=== PATIENT | female | born 1940 | race Caucasian/White ===

== ENCOUNTER → 2018-01-04 16:42 | Outpatient (CLI) | payer MEDICARE, OTHER, SELFPAY ==
--- NOTE | 2018-01-04 16:45 | DI.RAD.S_ITS ---
PROCEDURE: XR FOOT RT MIN 3V INDICATIONS: PAIN IN RIGHT FOOT TECHNIQUE: 3 views of the foot were acquired. COMPARISON: None. FINDINGS: Bones: No fractures or dislocations. No suspicious bony lesions. There is advanced joint degeneration at the first metatarsal phalangeal joint, [id number] appearance with sclerosis and marginal spurring. No cortical erosions seen. The inter-phalangeal joint of the great toe appears maintained. Soft tissues: No tibiotalar joint effusion. Achilles tendon appears normal. IMPRESSION: 1. Advanced osteoarthritis first metatarsal phalangeal joint Dictated by: Kvng Loera M.D. on 01/05/2018 at 8:30 Approved by: Kvng Loera M.D. on 01/05/2018 at 8:32
== END ==
PROVIDERS: PCP Internal Medicine; Visit Provider Student in an Organized Health Care Education/Training Program
DX: M19.071 Primary osteoarthritis, right ankle and foot (principal); M79.671 Pain in right foot
CPT/HCPCS: 73630

== ENCOUNTER 2019-01-20 08:28 | Emergency (ER) | payer MEDICARE, OTHER, SELFPAY ==
[2019-01-20 08:37] VITALS: BP 179/98; PULSE 69; RESP 16; TEMP 36.3; O2SAT 95; BMI 29.2
--- NOTE | 2019-01-20 08:40 | DI.RAD.S_ITS ---
PROCEDURE: XR CHEST 1V INDICATIONS: chest pain TECHNIQUE: One view of the chest was acquired. COMPARISON: [facility], , CHEST 2 VIEW, 02/13/2014, 10:40. FINDINGS: Surgical changes and devices: Clips are seen within the bilateral axillary regions. Lungs and pleura: Lungs are clear. No pleural effusions or pneumothorax. Mediastinum: Mediastinal contours appear normal. Heart size is normal. Bones and chest wall: No suspicious bony lesions. Overlying soft tissues appear unremarkable. IMPRESSION: Negative chest. No acute cardiopulmonary process is suspected. Dictated by: Mitchell Washington M.D. on 01/20/2019 at 8:01 Approved by: Mitchell Washington M.D. on 01/20/2019 at 8:02
[2019-01-20 09:13] LABS: PTT Partial Thromboplastin Tim 32 SECONDS (26.4-36.2)
[2019-01-20 09:14] LABS: Alanine Aminotransferase 21 IU/L (9-52); Albumin 4.3 g/dL (3.5-5.0); Albumin Globulin Ratio 1.4 (1.0-2.8); Alkaline Phosphatase 71 U/L (38-126); Aspartate Aminotransferase 23 IU/L (14-36); Bilirubin Total 0.7 mg/dL (0.2-1.3); Blood Urea Nitrogen 13 mg/dL (7-17); Calcium 8.7 mg/dL (8.4-10.2); Carbon Dioxide 27 mmol/L (22-32); Chloride 107 mmol/L (98-107); Creatine Kinase 79 U/L (30-135); Estimated Glomerular Filt Rate > 60.0 mL/min (>60); Glucose 135 mg/dL (80-110); HEMOLYSIS < 15 (0-50); Lipase 60 U/L (23-300); Potassium 3.6 mmol/L (3.4-5.1); Sodium 142 mmol/L (137-145); Total Protein 7.3 g/dL (6.3-8.2)
[2019-01-20 09:17] LABS: Add Manual Diff / Slide Review NO; Basophils Absolute Auto 100 /uL (0-100); Basophils Percent Auto 1.6 % (0-2); Eosinophils Absolute Auto 100 /uL (0-450); Eosinophils Percent Auto 1.5 % (2-4); Hemoglobin 13.6 g/dL (12.0-16.0); Lymphocytes Absolute Auto 1000 /uL (1100-4500); Lymphocytes Percent Auto 26.8 % (25-40); Mean Corpuscular HGB Conc 34.1 % (30-36); Mean Corpuscular Hemoglobin 32.6 PG (26-34); Mean Corpuscular Volume 95.7 fL (80-100); Monocytes Absolute Auto 200 /uL (0-900); Monocytes Percent Auto 5.1 % (3-14); Neutrophils Absolute Auto 2400 /uL (1500-7000); Platelet Count 204 X10^3/uL (150-400); Red Blood Cell Count 4.18 X10^6/uL (4.0-5.2); White Blood Cell Count 3.7 X10^3/uL (4.5-11.0)
[2019-01-20 09:26] LABS: Troponin I < 0.012 ng/mL (0.01-0.034)
[2019-01-20 09:43] VITALS: BP 136/75; PULSE 64; RESP 20; O2SAT 97
[2019-01-20 10:48] VITALS: BP 126/82; PULSE 78; O2SAT 97
--- NOTE | 2019-01-20 11:38 | ED.DIZZY ---
HPI - Dizziness General Chief Complaint: Dizziness Stated Complaint: disoriented,left arm tingly Time Seen by Provider: 01/20/19 09:42 Source: patient Mode of arrival: ambulatory Limitations: no limitations History of Present Illness HPI Narrative: This is a 78-year-old female comes to the emergency department with complaint feeling sort of disoriented in on stable at home, she also states she had an ache in her left arm. Patient states she has had discomfort in her left wrist on and off for about a week. She thinks she has some carpal tunnel. Today she states it was actually kind of radiating up into her shoulder. Patient states that it is still present in her wrist at this time but has otherwise resolved. She states that when she got up at about 6:00 a.m. she just felt sort of disoriented and off. She felt a little unstable. She states that she felt like her vision is maybe little cough that she could quite focus. She states no issues with speech, no issues with movement, new weakness or numbness in her extremities. Patient denies any chest pain or shortness of breath, she denies any diaphoresis. She states she vomited once this morning and was left over coffee from last night. She denies any issues with bowel movements, she has chronic urinary frequency. The patient has a history significant for dyslipidemia and was started on Crestor on the 27 of December. She has not noticed any significant side effects. 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 Is she denies tobacco, she has 2-3 alcoholic drinks nightly. No illicit. She has not had a stress test recently but had a MUGA scan about 15 years ago when she was taking Adriamycin. Patient states she has not had anything to eat or drink today. She states she also bicycle to all around [place] and is on Monday. Related Data Home Medications Medication Instructions Recorded Confirmed No Known Home Medications 11/28/17 11/28/17 Allergies Allergy/AdvReac Type Severity Reaction Status Date / Time levofloxacin [From LEVAQUIN] Allergy Severe MADE ME Verified 01/20/19 08:37 SCREWY doxorubicin [From Adriamycin] Allergy Intermediate Verified 01/20/19 08:37 Review of Systems Review of Systems ROS Unobtainable: All systems reviewed & are unremarkable except as noted in HPI and below Constitutional Denies chills, Denies fever(s), Denies lethargy and Denies weakness Eyes Reports other (couldn't focus, resolved.) ENT Ears, Nose, Mouth, and Throat: Denies other (facial droop) Cardiovascular Denies chest pain, Denies diaphoresis, Denies syncope, Denies rapid heart rate, Denies edema, Denies irregular heart rhythm, Denies lightheadedness, Reports radiating jaw, neck or arm pain (left arm discomfort. ), Denies palpitations, Denies dyspnea, Denies dyspnea on exertion and Denies orthopnea Respiratory Denies chest congestion, Denies cough, Denies dyspnea, Denies dyspnea on exertion and Denies wheezing Gastrointestinal Gastrointestinal: Denies abdominal pain, Denies change in bowel habits, Denies diarrhea, Denies nausea and Reports vomiting (x1) Genitourinary Denies hematuria, Reports urinary frequency, Denies dysuria, Denies flank pain, Denies urinary incontinence and Denies urinary urgency Musculoskeletal Reports as per HPI, Denies arthralgias, Denies muscle weakness, Denies numbness, Denies stiffness and Denies tingling Integumentary/Breasts Denies erythema and Denies rash Neurologic Denies syncope, Denies numbness, Denies tingling and Denies weakness Endocrine Denies palpitations Allergic/Immunologic Denies wheezing PFSH Medical History (Updated 01/20/19 @ 12:06 by Carol Esquivel DO) Dyslipidemia (Chronic) Inflammatory breast cancer (Resolved) Surgical History (Updated 01/20/19 @ 12:06 by Carol Esquivel DO) H/O bilateral mastectomy (Chronic) History of mastectomy (Inactive) Social History (Updated 01/20/19 @ 12:06 by Carol Esquivel DO) Smoking Status: Never smoker alcohol intake: current substance use type: does not use Social History (Updated 01/20/19 @ 12:06 by Carol Esquivel DO) Smoking Status: Never smoker alcohol intake: current substance use type: does not use Exam Narrative Exam Narrative: GENERAL: Alert and oriented x three, well-nourished, well-appearing female in no acute distress. HEENT: Head normocephalic, atraumatic, EOMI, pupils reactive, face symmetric, moist mucous membranes, no facial droop normal speech. NECK: Supple, full range of motion CARDIOVASCULAR: Regular rate and rhythm without murmurs, rubs or gallops. RESPIRATORY: Breath sounds equal bilaterally, no wheezes rales or rhonchi. ABDOMEN: Soft, nontender. Normoactive bowel sounds all 4 quadrants. No guarding or rebound, rigidity, no mass : No CVA tenderness EXTREMITIES: Normal range of motion, no clubbing or edema. Neurovascularly intact NEUROLOGICAL: Cranial nerves II through XII grossly intact. Moving all extremities. [id number]-[id number], heel-armas are normal. 5/5 muscle strength in upper and lower extremities. Certified Fire Investigator is equal bilaterally, normal push and pull. Normal gait. Normal speech. SKIN: Warm, dry, no petechiae, no rashes or lesions. Initial Vital Signs Initial Vital Signs: Vital Signs Temperature 97.4 F L 01/20/19 08:37 Pulse Rate 69 01/20/19 08:37 Respiratory Rate 16 01/20/19 08:37 Blood Pressure 179/98 H 01/20/19 08:37 Pulse Oximetry 95 01/20/19 08:37 Scores HEART Score Heart Score history: Moderately Suspicious Heart Score EKG: Normal Heart Score Age: > or = 65 years old Heart Score risk factors: 1-2 risk factors Heart Score troponin: < or = to normal limit Heart Score Total: 4 NIH Stroke Scale Level of Conciousness: Alert, keenly responsive Ask month/age: Answers both questions correctly. Open/close eyes, close hand: Performs both tasks correctly Best gaze horizontal: Normal Visual nunez: No visual loss Facial palsy: Normal symetrical movement Left arm drift: No drift for full 10 sec Right arm drift: No drift for full 10 sec Left leg drift: No drift for full 10 sec Right leg drift: No drift for full 10 sec Limb ataxia: Absent Sensory on face/arms/legs: Normal, no sensory loss Best language: No aphasia, normal Dysarthria: Normal Extinction or inattention: No abnormality Total NIH Stroke scale score: 0 Course Orders Ordered: ED Orders 01/20/19 08:40 XR chest 1V Stat EKG-12 Lead Stat 01/20/19 08:50 Complete Blood Count AUTO DIFF Stat Comprehensive Metabolic Panel Stat Lipase Stat Partial Thromboplastin Time Stat Prothrombin Time INR Stat Troponin & CK Cardiac Panel Stat Vital Signs - 8 hr 01/20/19 12:24 Pulse Rate 66 Respiratory Rate 18 Blood Pressure 140/80 Pulse Oximetry 99 MDM - Dizziness Lab Data Attestation: I reviewed the patient's lab results. Result diagrams: 01/20/19 08:50 01/20/19 08:50 Lab Results 01/20/19 01/20/19 01/20/19 Range/Units 08:50 08:50 08:50 WBC 3.7 L (4.5-11.0) X10^3/uL RBC 4.18 (4.0-5.2) X10^6/uL Hgb 13.6 (12.0-16.0) g/dL Hct 40.0 (36-46) % MCV 95.7 (80-100) fL MCH 32.6 (26-34) PG MCHC 34.1 (30-36) % RDW 13.0 (11.6-14.8) % Plt Count 204 (150-400) X10^3/uL Neut % (Auto) 65.0 (50-75) % Lymph % (Auto) 26.8 (25-40) % [place] % (Auto) 5.1 (3-14) % Eos % (Auto) 1.5 L (2-4) % Baso % (Auto) 1.6 (0-2) % Neut # (Auto) 2400 (2298-0884) /uL Lymph # (Auto) 1000 L (2134-0973) /uL [place] # (Auto) 200 (0-900) /uL Eos # (Auto) 100 (0-450) /uL Baso # (Auto) 100 (0-100) /uL PT 11.0 (10.1-12.7) SECONDS INR 1.0 (0.9-1.3) APTT 32 (26.4-36.2) SECONDS Sodium 142 (137-145) mmol/L Potassium 3.6 (3.4-5.1) mmol/L Chloride 107 (98-107) mmol/L Carbon Dioxide 27 (22-32) mmol/L BUN 13 (7-17) mg/dL Creatinine 0.50 L (0.52-1.04) mg/dL Estimated GFR > 60.0 (>60) mL/min BUN/Creatinine Ratio 26.0 H (6-22) Glucose 135 H (80-110) mg/dL Calcium 8.7 (8.4-10.2) mg/dL Total Bilirubin 0.7 (0.2-1.3) mg/dL AST 23 (14-36) IU/L ALT 21 (9-52) IU/L Alkaline Phosphatase 71 (38-126) U/L Total Creatine Kinase 79 (30-135) U/L CK-MB (CK-2) TNP CK-MB (CK-2) Rel Index TNP Troponin I < 0.012 (0.01-0.034) ng/mL Total Protein 7.3 (6.3-8.2) g/dL Albumin 4.3 (3.5-5.0) g/dL Globulin 3.0 (1.7-4.1) g/dL Albumin/Globulin Ratio 1.4 (1.0-2.8) Lipase 60 (23-300) U/L Point of Care Testing Glucose POC 146 Urine Dip Bedside Urine Glucose Negative Bedside Urine Bilirubin - Negative Bedside Urine Ketone - Negative Urine Specific [place] 1.020 Bedside Urine Occult Blood - Negative Bedside Urine pH 7.5 Bedside Urine Protein - Negative Bedside Urine Urobilinogen - Negative Bedside Urine Nitrite - Negative Bedside Urine Leukocytes - Negative Esterase Imaging Data Chest x-ray: Radiologist's impression: [address] [address] XRay Report Signed Patient: Tammi Yanez LMR#: [id number] : [id number]:[id number] Age/Sex: 78 / FDate of Service: 01/20/19 Loc: ED Accession Number: [id number] Procedure: XR chest 1V Ordering Provider: Carol Esquivel D.O. PROCEDURE: XR CHEST 1V INDICATIONS: chest pain TECHNIQUE: One view of the chest was acquired. COMPARISON: [facility], , CHEST 2 VIEW, 02/13/2014, 10:40. FINDINGS: Surgical changes and devices: Clips are seen within the bilateral axillary regions. Lungs and pleura: Lungs are clear. No pleural effusions or pneumothorax. Mediastinum: Mediastinal contours appear normal. Heart size is normal. Bones and chest wall: No suspicious bony lesions. Overlying soft tissues appear unremarkable. IMPRESSION: Negative chest. No acute cardiopulmonary process is suspected. Dictated by: Mitchell Washington M.D. on 01/20/2019 at 8:01 Approved by: Mitchell Washington M.D. on 01/20/2019 at 8:02 ECG Data Attestation: I personally reviewed and interpreted this ECG as follows: Interpretation: Sinus bradycardia rate of 56 P are 129 QRS of 90 and QTC of 454, no ST elevation or depression appreciated. Patient has prior from 02/12/2014 which appears similar. Please note today's EKG was initially filed under the name of cherrie. MDM Narrative Medical decision making narrative: Patient is requesting to return home. Discussed her lab work is normal except for a white count of 3.7 which she states is a normal range of her. She did come in hypertensive. Her symptoms have resolved although she has some discomfort in her wrist. Unclear if this could be carpal tunnel although with the complaint of radiation from the shoulder all the way to the wrist this makes it less likely. Patient also with her description of feeling little disoriented in off may be suspicious for either TIA and or atypical chest pain. Discussed with patient she does have some risk factors at minimum I would recommend a repeat troponin/EKG as well as a head CT. Patient does not wish to stay for these we discussed the risks, she is aware that there is potential for missing a stroke or TIA as well as cardiac cause such as a heart attack. I did recommend that she follow up with her physician tomorrow which she is willing to do. We also discussed that she can return at any time if she has recurrence of symptoms or would just like to return for recheck. Discharge Plan Departure Patient Disposition: Home Clinical Impression: Dizziness, Arm pain, left Discharge Date/Time: 01/20/19 12:24 Interventions: ED Discharge Assessment Last Done: 01/20/19 12:24 Instructions: DI for Atypical Chest Pain Activity Restrictions/Additional Instructions: Follow-up with your primary care physician tomorrow call for an appointment in the morning. Your symptoms are concerning for possible atypical chest pain and/or TIA. I would recommend repeat troponin/heart enzyme as well as head CT today. Is elected to return home I would discussed with your physician about potentially getting stress testing or at minimum recheck. Return to the emergency department for fevers greater than 100.4 F, new chest pain or pressure, shortness of breath, lightheadedness, passing out, difficulty with speech, movement, sudden severe headaches, new vision changes, new weakness/numbness or other new or concerning symptoms. Prescriptions: No Action No Known Home Medications RF: 0 Referrals: Gonzalo Rudolph MD [Primary Care Provider] -
[2019-01-20 12:24] VITALS: BP 140/80; PULSE 66; RESP 18; O2SAT 99
== END 2019-01-20 12:24 | disposition home or self-care (01) ==
PROVIDERS: Emergency Provider Emergency Medicine; PCP Internal Medicine
DX: R42 Dizziness and giddiness (principal); M79.602 Pain in left arm; R20.2 Paresthesia of skin; M25.512 Pain in left shoulder
CPT/HCPCS: 36591; 71045; 80053; 81003; 82550; 82962; 83690; 84484; 85025; 85610; 85730; 93005; 99283; 99285

== ENCOUNTER → 2019-06-06 12:13 | Outpatient (CLI) | payer MEDICARE, OTHER, SELFPAY ==
--- NOTE | 2019-06-06 | DI.RAD.S_ITS ---
PROCEDURE: XR FOOT LT MIN 3V INDICATIONS: LT FOOT PAIN TECHNIQUE: 3 views of the foot were acquired. COMPARISON: , [facility], XR FOOT RT MIN 3V, 01/04/2018, 16:26. FINDINGS: Bones: No fractures or dislocations. No suspicious bony lesions. Plantar calcaneal spur. Diffuse interphalangeal and first MTP degeneration. Marginal lucency projects at the fifth metatarsal head Soft tissues: No tibiotalar joint effusion. Achilles tendon appears normal. IMPRESSION: Diffuse osteoarthritis Age indeterminate cyst versus erosion at the fifth metatarsal head Plantar calcaneal spur Dictated by: Richard El M.D. on 06/06/2019 at 13:44 Approved by: Richard El M.D. on 06/06/2019 at 13:50
== END ==
PROVIDERS: PCP Internal Medicine; Visit Provider Internal Medicine
DX: M79.672 Pain in left foot (principal); M19.072 Primary osteoarthritis, left ankle and foot; M77.32 Calcaneal spur, left foot
CPT/HCPCS: 73630

== ENCOUNTER → 2019-08-01 10:19 | Outpatient (CLI) | payer MEDICARE, OTHER, SELFPAY | PROVIDERS: PCP Internal Medicine; Visit Provider Internal Medicine | DX: M81.0 Age-related osteoporosis without current pathological fracture (principal); Z78.0 Asymptomatic menopausal state; Z85.3 Personal history of malignant neoplasm of breast | CPT/HCPCS: 77080 ==

== ENCOUNTER → 2019-08-28 09:25 | Outpatient (CLI) | payer MEDICARE, OTHER, SELFPAY ==
[2019-08-28 11:16] LABS: Blood Urea Nitrogen 15 mg/dL (7-17); Estimated Glomerular Filt Rate > 60.0 mL/min (>60)
== END ==
PROVIDERS: PCP Internal Medicine; Referring Provider Internal Medicine; Visit Provider Internal Medicine
DX: M81.0 Age-related osteoporosis without current pathological fracture (principal)
CPT/HCPCS: 36415; 82565; 84520

== ENCOUNTER 2019-12-03 09:45 | Outpatient (RCR) | payer MEDICARE, OTHER, SELFPAY ==
--- NOTE | 2019-08-23 15:02 | PT.OIE ---
Current Diagnoses Low back pain (08/23/19) Past Medical History (Last Updated 01/20/19 @ 12:06 by Carol Esquivel DO) Dyslipidemia (Chronic) Inflammatory breast cancer (Resolved) Past Surgical History (Last Updated 01/20/19 @ 12:06 by Carol Esquivel DO) H/O bilateral mastectomy (Chronic) History of mastectomy (Inactive) Visit Care Team Role Provider Type Gonzalo Rudolph MD Attending Provider Physician Primary Care Provider Referring Provider Specialty: Internal Medicine Address: [address] [place] [address], [facility] Email: [email or web address] Physical Therapy Initial Evaluation PT-OP-A Visit Information Start: 08/23/19 07:23 Freq: Status: Active Protocol: Document 08/23/19 09:50 MB (Rec: 08/23/19 10:31 MB [id number]) Out-Patient Physical Therapy Visit Information Visit Information Visit Type Initial Evaluation Visit Note Medicare, unlimited Visit Start Time 09:50 Visit Stop Time 10:20 Total Visit Minutes 30 Visit Number 1 Evaluation Information Evaluation Date 08/23/19 PT-OP-B Current Condition Start: 08/23/19 07:23 Freq: Status: Active Protocol: Document 08/23/19 09:50 MB (Rec: 08/23/19 10:31 MB [id number]) Current Condition History of Current Condition Onset Date Greater than 10 years History of Current Condition Pt reports that she has just been diagnosed with osteoporosis and osteopenia. 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 Her doctor wants her to have an infusion and she is thinking about Fosamax. Pt states that her back pain is getting better. She is able to go cross country skiing with her sons and just got back from [place]. PMH includes breast CA and B mastectomy. She has a history of dizziness. Pt reports pain up to 4/10 in her lower back that goes across. She gets tired easily. She has pain at night and has trouble getting to sleep. She sleeps on her stomach or on her side. She does not use a pillow between her knees when she sleeps on her side. She just got a new bed. It is a temperpedic mattress and firm but not too hard. Pt denies sensory changes in her legs and leg pain. She does report right great toe pain from arthritis and that she is seeing a director public service. She would like to get some PT for her foot as well and will call doctor to added to current PT plan. Prior Treatments and Tests PT in the past for her back and it went well. She also had PT s/p B mastectomy Treatment Goals Patient/Caregiver Goals To get some exercises. To get PT for her feet as well. PT-OP-C Subjective Start: 08/23/19 07:23 Freq: Status: Active Protocol: Document 08/23/19 09:50 MB (Rec: 08/23/19 14:58 MB [id number]) OP-PT Subjective Patient Comments Patient Comments See history of current condition and goal comments Patient Questionnaires Oswestry Low Back Index Oswestry Impairment 1 to 19% Impaired (Score 1-19) PT-OP-J Posture/Palpation/Skin Start: 08/23/19 07:23 Freq: Status: Active Protocol: Document 08/23/19 09:50 MB (Rec: 08/23/19 14:58 MB [id number]) Posture Evaluation Comments Posture Comments Standing: mild Dowager's hump, decreased thoracic kyphosis, increased lumbar lordosis, anterior tilt pelvis, right convexity upper thoracic spine , right scapula protracted and elevated compared to the left , T4 spinous process protruded , left iliac crest slightly higher than the right and increased knee valgus greater on the right. 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 PT-OP-K Range of Motion Start: 08/23/19 07:23 Freq: Status: Active Protocol: Document 08/23/19 09:50 MB (Rec: 08/23/19 15:01 MB [id number]) Lumbar Spine Range of Motion Lumbar Spine Active Testing Position Standing Comments Fingers 3 from floor with forward flexion Little thoracic and lumbar movement with side bend--pt drops shoulders B Little lumbar extension with standing extension--pt extends head back PT-OP-M Strength Start: 08/23/19 07:23 Freq: Status: Active Protocol: Document 08/23/19 09:50 MB (Rec: 08/23/19 15:00 MB [id number]) Hip Strength Hip Manual Muscle Testing Left Flexion (L2) 5 Normal Abduction 4 Good Right Flexion (L2) 4 Good Abduction 3+ Fair+ Knee Strength Knee Manual Muscle Testing Left Flexion (S2) 4 Good Extension (L3) 4 Good Right Flexion (S2) 4 Good Extension (L3) 4 Good Ankle/Foot Strength Ankle and Foot Manual Muscle Testing Left Dorsiflexion (L4) 5 Normal Inversion 5 Normal Eversion (S1) 5 Normal Comments Great toe extension 4/5 Right Dorsiflexion (L4) 5 Normal Inversion 4 Good Eversion (S1) 4 Good Comments Great toe extension 4/5 PT-OP-T Assessment and Plan Start: 08/23/19 07:23 Freq: Status: Active Protocol: Document 08/23/19 09:50 MB (Rec: 08/23/19 14:58 MB [id number]) Physical Therapy Assessment Rehab Potential Rehabilitation Potential Good Evaluation Complexity Number of Personal Factors/Comorbidities 1-2 Number of Body Systems Impaired 1-2 Clinical Presentation at Evaluation Stable Impairments Impairments Balance,Gait,Pain,Posture,ROM, Soft Tissue Mobility,Strength Goals 5 Lumber Salvager Goal (LTG) Pt will perform progressive HEP including alignment, core and LE strengthening, flexibility and balance exercises to improve balance and decrease pain by 10/22/2019. LTG Duration 8 weeks 4 Skilled Nursing Goal (LTG) Pt will report a 75% improvement in back pain by 10/22/2019. LTG Duration 8 weeks 3 Skilled Nursing Goal (LTG) Pt will perform WNLs on a standardized balance test to decrease fall risk by 10/22/2019 . LTG Duration 8 weeks 2 Lumber Salvager Goal (LTG) Pt will present with right ankle eversion and inversion to 5/5 to improve gait quality by 10/22/2019. LTG Duration 8 weeks 1 Lumber Salvager Goal (LTG) Pt will present with improved LE strength to 5/5 B hip abduction and flexion and knee flexion and extension to improve gait quality by 2019. LTG Duration 8 weeks Assessment Summary Assessment Pt is a 79 y/o female presenting with back and right greater than left foot pain in setting of spinal changes, OP and arthritis. She presents with LE weakness, gait favoring her right foot and with decreased step-length and foot clearance, occ scuffing the floor with left foot and decreased balance (unable to perform balance testing without shoes today d/t right toe discomfort with MMT). She will benefit from PT to improve flexibility, posture, core and LE strength and balance. Given gait changes and weakness, foot and ankle strengthening will be included with PT treatment. Physical Therapy Plan Frequency and Duration Frequency of Treatment 2x/Week Duration of Treatment 8 weeks Plan of Care Start Date 08/23/19 Plan of Care End Date 10/22/19 Therapeutic Interventions Therapeutic Interventions Aquatic Therapy,Balance Training,Canalithic Repositioning,Gait Training, Home Exercise Program,Joint Mobilizations,Manual Therapy, Neuromuscular Re-education, Patient/Caregiver Education, Self-Care/Home Management,Soft Tissue Mobilization,Taping, Therapeutic Activities, Therapeutic Exercises Modalities Cold Pack/Ice Massage,Electric Stimulation,Hot Packs, Ultrasound Other Therapeutic Interventions LLT Next Visit Focus/Plan Next Note Type Treatment Note Next Visit Plan Initiate exercises
--- NOTE | 2019-08-23 15:02 | PT.OPPOC ---
Physical, Occupational & Speech Therapy At [facility] Current Diagnoses Low back pain (08/23/19) Visit Care Team Role Provider Type Gonzalo Rudolph MD Attending Provider Physician Primary Care Provider Referring Provider Specialty: Internal Medicine Address: [address] [place] [address], [id number] Email: [email or web address] Of Care PT-OP-T Assessment and Plan Start: 08/23/19 07:23 Freq: Status: Active Protocol: Document 08/23/19 09:50 MB (Rec: 08/23/19 14:58 MB [id number]) Physical Therapy Assessment Rehab Potential Rehabilitation Potential Good Evaluation Complexity Number of Personal Factors/Comorbidities 1-2 Number of Body Systems Impaired 1-2 Clinical Presentation at Evaluation Stable Impairments Impairments Balance,Gait,Pain,Posture,ROM, Soft Tissue Mobility,Strength Goals 5 Knuckle Strap Sewer Goal (LTG) Pt will perform progressive HEP including alignment, core and LE strengthening, flexibility and balance exercises to improve balance and decrease pain by 10/22/2019. LTG Duration 8 weeks 4 Correction Goal (LTG) Pt will report a 75% improvement in back pain by 10/22/2019. LTG Duration 8 weeks 3 Correction Goal (LTG) Pt will perform WNLs on a standardized balance test to decrease fall risk by 10/22/2019 . LTG Duration 8 weeks 2 Correction Goal (LTG) Pt will present with right ankle eversion and inversion to 5/5 to improve gait quality by 10/22/2019. LTG Duration 8 weeks 1 Knuckle Strap Sewer Goal (LTG) Pt will present with improved LE strength to 5/5 B hip abduction and flexion and knee flexion and extension to improve gait quality by 2019. LTG Duration 8 weeks Assessment Summary Assessment Pt is a 79 y/o female presenting with back and right greater than left foot pain in setting of spinal changes, OP and arthritis. She presents with LE weakness, gait favoring her right foot and with decreased step-length and foot clearance, occ scuffing the floor with left foot and decreased balance (unable to perform balance testing without shoes today d/t right toe discomfort with MMT). She will benefit from PT to improve flexibility, posture, core and LE strength and balance. Given gait changes and weakness, foot and ankle strengthening will be included with PT treatment. Physical Therapy Plan Frequency and Duration Frequency of Treatment 2x/Week Duration of Treatment 8 weeks Plan of Care Start Date 08/23/19 Plan of Care End Date 10/22/19 Therapeutic Interventions Therapeutic Interventions Aquatic Therapy,Balance Training,Canalithic Repositioning,Gait Training, Home Exercise Program,Joint Mobilizations,Manual Therapy, Neuromuscular Re-education, Patient/Caregiver Education, Self-Care/Home Management,Soft Tissue Mobilization,Taping, Therapeutic Activities, Therapeutic Exercises Modalities Cold Pack/Ice Massage,Electric Stimulation,Hot Packs, Ultrasound Other Therapeutic Interventions LLT Next Visit Focus/Plan Next Note Type Treatment Note Next Visit Plan Initiate exercises Plan of Care Dates Plan of Care Start Date 08/23/19 Plan of Care End Date 10/22/19 Electronically Signed by: Olivia Casillas PT 08/23/19 [id number] Please Sign and Return: I have reviewed this Plan of Care and certify that the skilled therapy services above are required to meet the patient?s needs. Physician Signature Date Printed Name and Credentials Clinical Instructor Signature Printed Name and Credentials
--- NOTE | 2019-08-27 08:59 | PT.OTN ---
Current Diagnoses Low back pain (08/27/19) Physical Therapy Treatment Note PT-OP-A Visit Information Start: 08/23/19 07:23 Freq: Status: Active Protocol: Document 08/27/19 08:21 MB (Rec: 08/27/19 08:26 MB [id number]) Out-Patient Physical Therapy Visit Information Visit Information Visit Type Treatment Note Visit Note Medicare, unlimited Visit Start Time 08:21 Visit Stop Time 09:00 Total Visit Minutes 39 Visit Number 2 PT-OP-B Current Condition Start: 08/23/19 07:23 Freq: Status: Active Protocol: Document 08/23/19 09:50 MB (Rec: 08/23/19 10:31 MB [id number]) Current Condition History of Current Condition Onset Date Greater than 10 years History of Current Condition Pt reports that she has just been diagnosed with osteoporosis and osteopenia. 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 Her doctor wants her to have an infusion and she is thinking about Fosamax. Pt states that her back pain is getting better. She is able to go cross country skiing with her sons and just got back from [place]. PMH includes breast CA and B mastectomy. She has a history of dizziness. Pt reports pain up to 4/10 in her lower back that goes across. She gets tired easily. She has pain at night and has trouble getting to sleep. She sleeps on her stomach or on her side. She does not use a pillow between her knees when she sleeps on her side. She just got a new bed. It is a temperpedic mattress and firm but not too hard. Pt denies sensory changes in her legs and leg pain. She does report right great toe pain from arthritis and that she is seeing a senior android developer. She would like to get some PT for her foot as well and will call doctor to added to current PT plan. Prior Treatments and Tests PT in the past for her back and it went well. She also had PT s/p B mastectomy Treatment Goals Patient/Caregiver Goals To get some exercises. To get PT for her feet as well. PT-OP-C Subjective Start: 08/23/19 07:23 Freq: Status: Active Protocol: Document 08/27/19 08:21 MB (Rec: 08/27/19 08:29 MB [id number]) OP-PT Subjective Patient Comments Patient Comments Pt is going to talk with her doctor tomorrow about trying Fosamax before infusion. She woke up with left foot pain last night. She occ has right great toe pain. PT-OP-J Posture/Palpation/Skin Start: 08/23/19 07:23 Freq: Status: Active Protocol: Document 08/23/19 09:50 MB (Rec: 08/23/19 14:58 MB [id number]) Posture Evaluation Comments Posture Comments Standing: mild Dowager's hump, decreased thoracic kyphosis, increased lumbar lordosis, anterior tilt pelvis, right convexity upper thoracic spine , right scapula protracted and elevated compared to the left , T4 spinous process protruded , left iliac crest slightly higher than the right and increased knee valgus greater on the right. 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 PT-OP-K Range of Motion Start: 08/23/19 07:23 Freq: Status: Active Protocol: Document 08/23/19 09:50 MB (Rec: 08/23/19 15:01 MB [id number]) Lumbar Spine Range of Motion Lumbar Spine Active Testing Position Standing Comments Fingers 3 from floor with forward flexion Little thoracic and lumbar movement with side bend--pt drops shoulders B Little lumbar extension with standing extension--pt extends head back PT-OP-M Strength Start: 08/23/19 07:23 Freq: Status: Active Protocol: Document 08/23/19 09:50 MB (Rec: 08/23/19 15:00 MB [id number]) Hip Strength Hip Manual Muscle Testing Left Flexion (L2) 5 Normal Abduction 4 Good Right Flexion (L2) 4 Good Abduction 3+ Fair+ Knee Strength Knee Manual Muscle Testing Left Flexion (S2) 4 Good Extension (L3) 4 Good Right Flexion (S2) 4 Good Extension (L3) 4 Good Ankle/Foot Strength Ankle and Foot Manual Muscle Testing Left Dorsiflexion (L4) 5 Normal Inversion 5 Normal Eversion (S1) 5 Normal Comments Great toe extension 4/5 Right Dorsiflexion (L4) 5 Normal Inversion 4 Good Eversion (S1) 4 Good Comments Great toe extension 4/5 PT-OP-Q Treatments Start: 08/23/19 07:23 Freq: Status: Active Protocol: Document 08/27/19 08:21 MB (Rec: 08/27/19 08:29 MB [id number]) Therapeutic Exercises Supine Exercises Pelvic realignment exercises Reps/Minutes 5 reps each, 3 sec hold Manual Therapy Treatment Manual Techniques Foot mobs Comments Mobs B feet--tarsal, metatarsals and digits, pt supine and prone PT-OP-T Assessment and Plan Start: 08/23/19 07:23 Freq: Status: Active Protocol: Document 08/27/19 08:21 MB (Rec: 08/27/19 08:26 MB [id number]) Physical Therapy Assessment Rehab Potential Rehabilitation Potential Good Evaluation Complexity Number of Personal Factors/Comorbidities 1-2 Number of Body Systems Impaired 1-2 Clinical Presentation at Evaluation Stable Impairments Impairments Balance,Gait,Pain,Posture,ROM, Soft Tissue Mobility,Strength Goals 5 Insurance Clerk Goal (LTG) Pt will perform progressive HEP including alignment, core and LE strengthening, flexibility and balance exercises to improve balance and decrease pain by 10/22/2019. LTG Duration 8 weeks 4 Insurance Clerk Goal (LTG) Pt will report a 75% improvement in back pain by 10/22/2019. LTG Duration 8 weeks 3 Usp Goal (LTG) Pt will perform WNLs on a standardized balance test to decrease fall risk by 10/22/2019 . LTG Duration 8 weeks 2 Insurance Clerk Goal (LTG) Pt will present with right ankle eversion and inversion to 5/5 to improve gait quality by 10/22/2019. LTG Duration 8 weeks 1 Insurance Clerk Goal (LTG) Pt will present with improved LE strength to 5/5 B hip abduction and flexion and knee flexion and extension to improve gait quality by 2019. LTG Duration 8 weeks Assessment Summary Assessment Initiated pelvic realignment exercises today and foot mobs to help with gait pattern. Con 't progression including core and LE exercises--flexibility and strengthening. Physical Therapy Plan Frequency and Duration Frequency of Treatment 2x/Week Duration of Treatment 8 weeks Plan of Care Start Date 08/23/19 Plan of Care End Date 10/22/19 Therapeutic Interventions Therapeutic Interventions Aquatic Therapy,Balance Training,Canalithic Repositioning,Gait Training, Home Exercise Program,Joint Mobilizations,Manual Therapy, Neuromuscular Re-education, Patient/Caregiver Education, Self-Care/Home Management,Soft Tissue Mobilization,Taping, Therapeutic Activities, Therapeutic Exercises Modalities Cold Pack/Ice Massage,Electric Stimulation,Hot Packs, Ultrasound Other Therapeutic Interventions LLT Next Visit Focus/Plan Next Note Type Treatment Note Next Visit Plan Initiate exercises
--- NOTE | 2019-08-29 09:45 | PT.OTN ---
Current Diagnoses Low back pain (08/29/19) Physical Therapy Treatment Note PT-OP-A Visit Information Start: 08/23/19 07:23 Freq: Status: Active Protocol: Document 08/29/19 09:04 MB (Rec: 08/29/19 09:45 MB [id number]) Out-Patient Physical Therapy Visit Information Visit Information Visit Type Treatment Note Visit Note Medicare, unlimited Visit Start Time 09:04 Visit Stop Time 09:45 Total Visit Minutes 41 Visit Number 3 PT-OP-B Current Condition Start: 08/23/19 07:23 Freq: Status: Active Protocol: Document 08/23/19 09:50 MB (Rec: 08/23/19 10:31 MB [id number]) Current Condition History of Current Condition Onset Date Greater than 10 years History of Current Condition Pt reports that she has just been diagnosed with osteoporosis and osteopenia. 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 Her doctor wants her to have an infusion and she is thinking about Fosamax. Pt states that her back pain is getting better. She is able to go cross country skiing with her sons and just got back from [place]. PMH includes breast CA and B mastectomy. She has a history of dizziness. Pt reports pain up to 4/10 in her lower back that goes across. She gets tired easily. She has pain at night and has trouble getting to sleep. She sleeps on her stomach or on her side. She does not use a pillow between her knees when she sleeps on her side. She just got a new bed. It is a temperpedic mattress and firm but not too hard. Pt denies sensory changes in her legs and leg pain. She does report right great toe pain from arthritis and that she is seeing a oxygen furnace operator. She would like to get some PT for her foot as well and will call doctor to added to current PT plan. Prior Treatments and Tests PT in the past for her back and it went well. She also had PT s/p B mastectomy Treatment Goals Patient/Caregiver Goals To get some exercises. To get PT for her feet as well. PT-OP-C Subjective Start: 08/23/19 07:23 Freq: Status: Active Protocol: Document 08/29/19 09:04 MB (Rec: 08/29/19 09:45 MB [id number]) OP-PT Subjective Patient Comments Patient Comments Pt felt better after last treatment. She did pelvic realignment exercises. She feels her abdominals grecia. Her reconstruction surgery after breast cancer affected her stomach muscles. PT-OP-J Posture/Palpation/Skin Start: 08/23/19 07:23 Freq: Status: Active Protocol: Document 08/23/19 09:50 MB (Rec: 08/23/19 14:58 MB [id number]) Posture Evaluation Comments Posture Comments Standing: mild Dowager's hump, decreased thoracic kyphosis, increased lumbar lordosis, anterior tilt pelvis, right convexity upper thoracic spine , right scapula protracted and elevated compared to the left , T4 spinous process protruded , left iliac crest slightly higher than the right and increased knee valgus greater on the right. 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 PT-OP-K Range of Motion Start: 08/23/19 07:23 Freq: Status: Active Protocol: Document 08/23/19 09:50 MB (Rec: 08/23/19 15:01 MB [id number]) Lumbar Spine Range of Motion Lumbar Spine Active Testing Position Standing Comments Fingers 3 from floor with forward flexion Little thoracic and lumbar movement with side bend--pt drops shoulders B Little lumbar extension with standing extension--pt extends head back PT-OP-M Strength Start: 08/23/19 07:23 Freq: Status: Active Protocol: Document 08/23/19 09:50 MB (Rec: 08/23/19 15:00 MB [id number]) Hip Strength Hip Manual Muscle Testing Left Flexion (L2) 5 Normal Abduction 4 Good Right Flexion (L2) 4 Good Abduction 3+ Fair+ Knee Strength Knee Manual Muscle Testing Left Flexion (S2) 4 Good Extension (L3) 4 Good Right Flexion (S2) 4 Good Extension (L3) 4 Good Ankle/Foot Strength Ankle and Foot Manual Muscle Testing Left Dorsiflexion (L4) 5 Normal Inversion 5 Normal Eversion (S1) 5 Normal Comments Great toe extension 4/5 Right Dorsiflexion (L4) 5 Normal Inversion 4 Good Eversion (S1) 4 Good Comments Great toe extension 4/5 PT-OP-Q Treatments Start: 08/23/19 07:23 Freq: Status: Active Protocol: Document 08/29/19 09:04 MB (Rec: 08/29/19 09:45 MB [id number]) Therapeutic Exercises Supine Exercises Jovan stretch Comments B Jovan stretch 30 sec x2, abdominal drawing in Abdominal drawing in Comments Perfomed today x3, hold as long as possible Lumbar rotation Comments Lumbar rotation for spinal stiffness in a.m. Pelvic realignment exercises Reps/Minutes 5 reps each, 3 sec hold Sitting Exercises Hammock AP with band Comments 10 reps each foot, performed with level 1 band PT-OP-T Assessment and Plan Start: 08/23/19 07:23 Freq: Status: Active Protocol: Document 08/29/19 09:04 MB (Rec: 08/29/19 09:45 MB [id number]) Physical Therapy Assessment Goals 5 Outpatient Phlebotomist Goal (LTG) Pt will perform progressive HEP including alignment, core and LE strengthening, flexibility and balance exercises to improve balance and decrease pain by 10/22/2019. LTG Duration 8 weeks 4 Longterm Goal (LTG) Pt will report a 75% improvement in back pain by 10/22/2019. LTG Duration 8 weeks 3 Longterm Goal (LTG) Pt will perform WNLs on a standardized balance test to decrease fall risk by 10/22/2019 . LTG Duration 8 weeks 2 Longterm Goal (LTG) Pt will present with right ankle eversion and inversion to 5/5 to improve gait quality by 10/22/2019. LTG Duration 8 weeks 1 Longterm Goal (LTG) Pt will present with improved LE strength to 5/5 B hip abduction and flexion and knee flexion and extension to improve gait quality by 2019. LTG Duration 8 weeks Assessment Summary Assessment Reviewed pelvic realignment exercises and initiated LE flexibility exercises today. Con't progression including core and LE exercises-- flexibility and strengthening. Physical Therapy Plan Frequency and Duration Frequency of Treatment 2x/Week Duration of Treatment 8 weeks Plan of Care Start Date 08/23/19 Plan of Care End Date 10/22/19 Therapeutic Interventions Therapeutic Interventions Aquatic Therapy,Balance Training,Canalithic Repositioning,Gait Training, Home Exercise Program,Joint Mobilizations,Manual Therapy, Neuromuscular Re-education, Patient/Caregiver Education, Self-Care/Home Management,Soft Tissue Mobilization,Taping, Therapeutic Activities, Therapeutic Exercises Modalities Cold Pack/Ice Massage,Electric Stimulation,Hot Packs, Ultrasound Other Therapeutic Interventions LLT Next Visit Focus/Plan Next Note Type Treatment Note Next Visit Plan Progress flexibility, core and self-STM exercises, consider pool noodle and pect and rectus abdominus stretching.
--- NOTE | 2019-09-04 13:46 | PT.OTN ---
Current Diagnoses Low back pain (09/04/19) Physical Therapy Treatment Note PT-OP-A Visit Information Start: 08/23/19 07:23 Freq: Status: Active Protocol: Document 09/04/19 13:03 MB (Rec: 09/04/19 13:46 MB [id number]) Out-Patient Physical Therapy Visit Information Visit Information Visit Type Treatment Note Visit Note Medicare, unlimited Visit Start Time 13:03 Visit Stop Time 13:45 Total Visit Minutes 42 Visit Number 4 PT-OP-B Current Condition Start: 08/23/19 07:23 Freq: Status: Active Protocol: Document 08/23/19 09:50 MB (Rec: 08/23/19 10:31 MB [id number]) Current Condition History of Current Condition Onset Date Greater than 10 years History of Current Condition Pt reports that she has just been diagnosed with osteoporosis and osteopenia. 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 Her doctor wants her to have an infusion and she is thinking about Fosamax. Pt states that her back pain is getting better. She is able to go cross country skiing with her sons and just got back from [place]. PMH includes breast CA and B mastectomy. She has a history of dizziness. Pt reports pain up to 4/10 in her lower back that goes across. She gets tired easily. She has pain at night and has trouble getting to sleep. She sleeps on her stomach or on her side. She does not use a pillow between her knees when she sleeps on her side. She just got a new bed. It is a temperpedic mattress and firm but not too hard. Pt denies sensory changes in her legs and leg pain. She does report right great toe pain from arthritis and that she is seeing a manager reliability. She would like to get some PT for her foot as well and will call doctor to added to current PT plan. Prior Treatments and Tests PT in the past for her back and it went well. She also had PT s/p B mastectomy Treatment Goals Patient/Caregiver Goals To get some exercises. To get PT for her feet as well. PT-OP-C Subjective Start: 08/23/19 07:23 Freq: Status: Active Protocol: Document 09/04/19 13:03 MB (Rec: 09/04/19 13:46 MB [id number]) OP-PT Subjective Patient Comments Patient Comments Pt states that she did not do a lot because she went to [place] for her son's birthday. She cannot get into manager reliability until November. PT-OP-J Posture/Palpation/Skin Start: 08/23/19 07:23 Freq: Status: Active Protocol: Document 08/23/19 09:50 MB (Rec: 08/23/19 14:58 MB [id number]) Posture Evaluation Comments Posture Comments Standing: mild Dowager's hump, decreased thoracic kyphosis, increased lumbar lordosis, anterior tilt pelvis, right convexity upper thoracic spine , right scapula protracted and elevated compared to the left , T4 spinous process protruded , left iliac crest slightly higher than the right and increased knee valgus greater on the right. 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 PT-OP-K Range of Motion Start: 08/23/19 07:23 Freq: Status: Active Protocol: Document 08/23/19 09:50 MB (Rec: 08/23/19 15:01 MB [id number]) Lumbar Spine Range of Motion Lumbar Spine Active Testing Position Standing Comments Fingers 3 from floor with forward flexion Little thoracic and lumbar movement with side bend--pt drops shoulders B Little lumbar extension with standing extension--pt extends head back PT-OP-M Strength Start: 08/23/19 07:23 Freq: Status: Active Protocol: Document 08/23/19 09:50 MB (Rec: 08/23/19 15:00 MB [id number]) Hip Strength Hip Manual Muscle Testing Left Flexion (L2) 5 Normal Abduction 4 Good Right Flexion (L2) 4 Good Abduction 3+ Fair+ Knee Strength Knee Manual Muscle Testing Left Flexion (S2) 4 Good Extension (L3) 4 Good Right Flexion (S2) 4 Good Extension (L3) 4 Good Ankle/Foot Strength Ankle and Foot Manual Muscle Testing Left Dorsiflexion (L4) 5 Normal Inversion 5 Normal Eversion (S1) 5 Normal Comments Great toe extension 4/5 Right Dorsiflexion (L4) 5 Normal Inversion 4 Good Eversion (S1) 4 Good Comments Great toe extension 4/5 PT-OP-Q Treatments Start: 08/23/19 07:23 Freq: Status: Active Protocol: Document 09/04/19 13:03 MB (Rec: 09/04/19 13:46 MB [id number]) Therapeutic Exercises Supine Exercises Hamstring, calf and AP stretch Comments 30 sec each exercise, B Jovan stretch Comments B Jovan stretch 30 sec x2, abdominal drawing in Manual Therapy Treatment Manual Techniques Foot mobs Comments STM B iliopsoas and PT providing trigger point pressure and pt performing active heel slide. STM with rolling pin quads. PT-OP-T Assessment and Plan Start: 08/23/19 07:23 Freq: Status: Active Protocol: Document 09/04/19 13:03 MB (Rec: 09/04/19 13:46 MB [id number]) Physical Therapy Assessment Goals 5 Trawl Net Maker Goal (LTG) Pt will perform progressive HEP including alignment, core and LE strengthening, flexibility and balance exercises to improve balance and decrease pain by 10/22/2019. LTG Duration 8 weeks 4 Intermediate Goal (LTG) Pt will report a 75% improvement in back pain by 10/22/2019. LTG Duration 8 weeks 3 Trawl Net Maker Goal (LTG) Pt will perform WNLs on a standardized balance test to decrease fall risk by 10/22/2019 . LTG Duration 8 weeks 2 Intermediate Goal (LTG) Pt will present with right ankle eversion and inversion to 5/5 to improve gait quality by 10/22/2019. LTG Duration 8 weeks 1 Trawl Net Maker Goal (LTG) Pt will present with improved LE strength to 5/5 B hip abduction and flexion and knee flexion and extension to improve gait quality by 2019. LTG Duration 8 weeks Assessment Summary Assessment Further flexibility exercises today and performed manual work to help back pain. Con't progression. Pt con't with ongoing foot pain complaints, left foot. Physical Therapy Plan Frequency and Duration Frequency of Treatment 2x/Week Duration of Treatment 8 weeks Plan of Care Start Date 08/23/19 Plan of Care End Date 10/22/19 Therapeutic Interventions Therapeutic Interventions Aquatic Therapy,Balance Training,Canalithic Repositioning,Gait Training, Home Exercise Program,Joint Mobilizations,Manual Therapy, Neuromuscular Re-education, Patient/Caregiver Education, Self-Care/Home Management,Soft Tissue Mobilization,Taping, Therapeutic Activities, Therapeutic Exercises Modalities Cold Pack/Ice Massage,Electric Stimulation,Hot Packs, Ultrasound Other Therapeutic Interventions LLT Next Visit Focus/Plan Next Note Type Treatment Note Next Visit Plan Progress flexibility, core and self-STM exercises, consider pool noodle and pect and rectus abdominus stretching.
--- NOTE | 2019-09-10 13:49 | PT.OTN ---
Current Diagnoses Low back pain (09/10/19) Physical Therapy Treatment Note PT-OP-A Visit Information Start: 08/23/19 07:23 Freq: Status: Active Protocol: Document 09/10/19 13:01 MB (Rec: 09/10/19 13:38 MB [id number]) Out-Patient Physical Therapy Visit Information Visit Information Visit Type Treatment Note Visit Note Medicare, unlimited Visit Start Time 13:01 Visit Stop Time 13:44 Total Visit Minutes 43 Visit Number 5 PT-OP-B Current Condition Start: 08/23/19 07:23 Freq: Status: Active Protocol: Document 08/23/19 09:50 MB (Rec: 08/23/19 10:31 MB [id number]) Current Condition History of Current Condition Onset Date Greater than 10 years History of Current Condition Pt reports that she has just been diagnosed with osteoporosis and osteopenia. 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 Her doctor wants her to have an infusion and she is thinking about Fosamax. Pt states that her back pain is getting better. She is able to go cross country skiing with her sons and just got back from [place]. PMH includes breast CA and B mastectomy. She has a history of dizziness. Pt reports pain up to 4/10 in her lower back that goes across. She gets tired easily. She has pain at night and has trouble getting to sleep. She sleeps on her stomach or on her side. She does not use a pillow between her knees when she sleeps on her side. She just got a new bed. It is a temperpedic mattress and firm but not too hard. Pt denies sensory changes in her legs and leg pain. She does report right great toe pain from arthritis and that she is seeing a rental car ferry driver. She would like to get some PT for her foot as well and will call doctor to added to current PT plan. Prior Treatments and Tests PT in the past for her back and it went well. She also had PT s/p B mastectomy Treatment Goals Patient/Caregiver Goals To get some exercises. To get PT for her feet as well. PT-OP-C Subjective Start: 08/23/19 07:23 Freq: Status: Active Protocol: Document 09/10/19 13:01 MB (Rec: 09/10/19 13:38 MB [id number]) OP-PT Subjective Patient Comments Patient Comments Pt states that she put a lidocaine patch over her left foot. She con't to report concern about her foot pain. It is now worse on the left. PT-OP-J Posture/Palpation/Skin Start: 08/23/19 07:23 Freq: Status: Active Protocol: Document 08/23/19 09:50 MB (Rec: 08/23/19 14:58 MB [id number]) Posture Evaluation Comments Posture Comments Standing: mild Dowager's hump, decreased thoracic kyphosis, increased lumbar lordosis, anterior tilt pelvis, right convexity upper thoracic spine , right scapula protracted and elevated compared to the left , T4 spinous process protruded , left iliac crest slightly higher than the right and increased knee valgus greater on the right. 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 PT-OP-K Range of Motion Start: 08/23/19 07:23 Freq: Status: Active Protocol: Document 08/23/19 09:50 MB (Rec: 08/23/19 15:01 MB [id number]) Lumbar Spine Range of Motion Lumbar Spine Active Testing Position Standing Comments Fingers 3 from floor with forward flexion Little thoracic and lumbar movement with side bend--pt drops shoulders B Little lumbar extension with standing extension--pt extends head back PT-OP-M Strength Start: 08/23/19 07:23 Freq: Status: Active Protocol: Document 08/23/19 09:50 MB (Rec: 08/23/19 15:00 MB [id number]) Hip Strength Hip Manual Muscle Testing Left Flexion (L2) 5 Normal Abduction 4 Good Right Flexion (L2) 4 Good Abduction 3+ Fair+ Knee Strength Knee Manual Muscle Testing Left Flexion (S2) 4 Good Extension (L3) 4 Good Right Flexion (S2) 4 Good Extension (L3) 4 Good Ankle/Foot Strength Ankle and Foot Manual Muscle Testing Left Dorsiflexion (L4) 5 Normal Inversion 5 Normal Eversion (S1) 5 Normal Comments Great toe extension 4/5 Right Dorsiflexion (L4) 5 Normal Inversion 4 Good Eversion (S1) 4 Good Comments Great toe extension 4/5 PT-OP-Q Treatments Start: 08/23/19 07:23 Freq: Status: Active Protocol: Document 09/10/19 13:01 MB (Rec: 09/10/19 13:38 MB [id number]) Manual Therapy Treatment Manual Techniques Foot mobs Comments KT over first metatarsal area, extensor tendon for support. STM lower left leg over peroneals, ice massage over first met extensor area. Mobs mets and toes B feet, grade II Self-Care/Home Management Treatment Education Other Education Ed pt on trying different socks in shoes. She is wearing different shoes when she exercises. She thinks she has some liner socks for hiking. PT-OP-T Assessment and Plan Start: 08/23/19 07:23 Freq: Status: Active Protocol: Document 09/10/19 13:01 MB (Rec: 09/10/19 13:38 MB [id number]) Physical Therapy Assessment Goals 5 Halfway Goal (LTG) Pt will perform progressive HEP including alignment, core and LE strengthening, flexibility and balance exercises to improve balance and decrease pain by 10/22/2019. LTG Duration 8 weeks 4 Halfway Goal (LTG) Pt will report a 75% improvement in back pain by 10/22/2019. LTG Duration 8 weeks 3 Halfway Goal (LTG) Pt will perform WNLs on a standardized balance test to decrease fall risk by 10/22/2019 . LTG Duration 8 weeks 2 Halfway Goal (LTG) Pt will present with right ankle eversion and inversion to 5/5 to improve gait quality by 10/22/2019. LTG Duration 8 weeks 1 Animal Nutritionist Goal (LTG) Pt will present with improved LE strength to 5/5 B hip abduction and flexion and knee flexion and extension to improve gait quality by 2019. LTG Duration 8 weeks Assessment Summary Assessment Pt presents with left foot with extensor tendon over first met and digit more pronounced than the right and pain with MMT left great toe extension and it is weaker than the right. The pain is not constant. It comes and goes. Pt cannot say when pain is the worse, which pair of shoes. PT provides extensive education so that she will try to see what causes pain as far as activity and shoes. PT did perform 5' of US over left extensor area, first toe, 1.5 -2 intensity, 3 MHz, 50% pulsed. Physical Therapy Plan Frequency and Duration Frequency of Treatment 2x/Week Duration of Treatment 8 weeks Plan of Care Start Date 08/23/19 Plan of Care End Date 10/22/19 Therapeutic Interventions Therapeutic Interventions Aquatic Therapy,Balance Training,Canalithic Repositioning,Gait Training, Home Exercise Program,Joint Mobilizations,Manual Therapy, Neuromuscular Re-education, Patient/Caregiver Education, Self-Care/Home Management,Soft Tissue Mobilization,Taping, Therapeutic Activities, Therapeutic Exercises Modalities Cold Pack/Ice Massage,Electric Stimulation,Hot Packs, Ultrasound Other Therapeutic Interventions LLT Next Visit Focus/Plan Next Note Type Treatment Note Next Visit Plan Progress flexibility, core and self-STM exercises, consider pool noodle and pect and rectus abdominus stretching.
--- NOTE | 2019-09-12 13:46 | PT.OTN ---
Current Diagnoses Low back pain (09/12/19) Physical Therapy Treatment Note PT-OP-A Visit Information Start: 08/23/19 07:23 Freq: Status: Active Protocol: Document 09/12/19 12:57 MB (Rec: 09/12/19 13:46 MB [id number]) Out-Patient Physical Therapy Visit Information Visit Information Visit Type Treatment Note Visit Note Medicare, unlimited Visit Start Time 12:57 Visit Stop Time 13:42 Total Visit Minutes 45 Visit Number 6 PT-OP-B Current Condition Start: 08/23/19 07:23 Freq: Status: Active Protocol: Document 08/23/19 09:50 MB (Rec: 08/23/19 10:31 MB [id number]) Current Condition History of Current Condition Onset Date Greater than 10 years History of Current Condition Pt reports that she has just been diagnosed with osteoporosis and osteopenia. 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 Her doctor wants her to have an infusion and she is thinking about Fosamax. Pt states that her back pain is getting better. She is able to go cross country skiing with her sons and just got back from [place]. PMH includes breast CA and B mastectomy. She has a history of dizziness. Pt reports pain up to 4/10 in her lower back that goes across. She gets tired easily. She has pain at night and has trouble getting to sleep. She sleeps on her stomach or on her side. She does not use a pillow between her knees when she sleeps on her side. She just got a new bed. It is a temperpedic mattress and firm but not too hard. Pt denies sensory changes in her legs and leg pain. She does report right great toe pain from arthritis and that she is seeing a casting finisher. She would like to get some PT for her foot as well and will call doctor to added to current PT plan. Prior Treatments and Tests PT in the past for her back and it went well. She also had PT s/p B mastectomy Treatment Goals Patient/Caregiver Goals To get some exercises. To get PT for her feet as well. PT-OP-C Subjective Start: 08/23/19 07:23 Freq: Status: Active Protocol: Document 09/12/19 12:57 MB (Rec: 09/12/19 13:46 MB [id number]) OP-PT Subjective Patient Comments Patient Comments Pt states that her left foot feels 75% better after last treatment. She attributes this to the taping. She just got back from a 4 mile hike. Her back feels a little better. She used her poles when hiking . PT-OP-J Posture/Palpation/Skin Start: 08/23/19 07:23 Freq: Status: Active Protocol: Document 08/23/19 09:50 MB (Rec: 08/23/19 14:58 MB [id number]) Posture Evaluation Comments Posture Comments Standing: mild Dowager's hump, decreased thoracic kyphosis, increased lumbar lordosis, anterior tilt pelvis, right convexity upper thoracic spine , right scapula protracted and elevated compared to the left , T4 spinous process protruded , left iliac crest slightly higher than the right and increased knee valgus greater on the right. 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 PT-OP-K Range of Motion Start: 08/23/19 07:23 Freq: Status: Active Protocol: Document 08/23/19 09:50 MB (Rec: 08/23/19 15:01 MB [id number]) Lumbar Spine Range of Motion Lumbar Spine Active Testing Position Standing Comments Fingers 3 from floor with forward flexion Little thoracic and lumbar movement with side bend--pt drops shoulders B Little lumbar extension with standing extension--pt extends head back PT-OP-M Strength Start: 08/23/19 07:23 Freq: Status: Active Protocol: Document 08/23/19 09:50 MB (Rec: 08/23/19 15:00 MB [id number]) Hip Strength Hip Manual Muscle Testing Left Flexion (L2) 5 Normal Abduction 4 Good Right Flexion (L2) 4 Good Abduction 3+ Fair+ Knee Strength Knee Manual Muscle Testing Left Flexion (S2) 4 Good Extension (L3) 4 Good Right Flexion (S2) 4 Good Extension (L3) 4 Good Ankle/Foot Strength Ankle and Foot Manual Muscle Testing Left Dorsiflexion (L4) 5 Normal Inversion 5 Normal Eversion (S1) 5 Normal Comments Great toe extension 4/5 Right Dorsiflexion (L4) 5 Normal Inversion 4 Good Eversion (S1) 4 Good Comments Great toe extension 4/5 PT-OP-Q Treatments Start: 08/23/19 07:23 Freq: Status: Active Protocol: Document 09/12/19 12:57 MB (Rec: 09/12/19 13:46 MB [id number]) Therapeutic Exercises Sitting Exercises Ankle eversion with level 1 band Comments 10 reps eversion only Standing Exercises Standing gastroc and soleus stretches Comments Performed B, hold 40 sec Manual Therapy Treatment Other Other Manual Treatments KT black over left first metatarsal area Self-Care/Home Management Treatment Education Other Education Looked at all of patients' shoes, new socks, instructed pt on how to put KT on her left great toe allow extensor to ankle, care of tape once on , cleaning foot before use, ed on benefits and use of [place] sock PT-OP-T Assessment and Plan Start: 08/23/19 07:23 Freq: Status: Active Protocol: Document 09/12/19 12:57 MB (Rec: 09/12/19 13:46 MB [id number]) Physical Therapy Assessment Goals 5 Travel Manager Goal (LTG) Pt will perform progressive HEP including alignment, core and LE strengthening, flexibility and balance exercises to improve balance and decrease pain by 10/22/2019. LTG Duration 8 weeks 4 Group Home Goal (LTG) Pt will report a 75% improvement in back pain by 10/22/2019. LTG Duration 8 weeks 3 Group Home Goal (LTG) Pt will perform WNLs on a standardized balance test to decrease fall risk by 10/22/2019 . LTG Duration 8 weeks 2 Group Home Goal (LTG) Pt will present with right ankle eversion and inversion to 5/5 to improve gait quality by 10/22/2019. LTG Duration 8 weeks 1 Travel Manager Goal (LTG) Pt will present with improved LE strength to 5/5 B hip abduction and flexion and knee flexion and extension to improve gait quality by 2019. LTG Duration 8 weeks Assessment Summary Assessment Advanced exercises today to improve gait, extensive pt education, she is leaving to ski for two days next week. PT did perform 5' of US over left extensor area, first toe, 1.5-2 intensity, 3 MHz, 50% pulsed. [ End ] Physical Therapy Plan Frequency and Duration Frequency of Treatment 2x/Week Duration of Treatment 8 weeks Plan of Care Start Date 08/23/19 Plan of Care End Date 10/22/19 Therapeutic Interventions Therapeutic Interventions Aquatic Therapy,Balance Training,Canalithic Repositioning,Gait Training, Home Exercise Program,Joint Mobilizations,Manual Therapy, Neuromuscular Re-education, Patient/Caregiver Education, Self-Care/Home Management,Soft Tissue Mobilization,Taping, Therapeutic Activities, Therapeutic Exercises Modalities Cold Pack/Ice Massage,Electric Stimulation,Hot Packs, Ultrasound Other Therapeutic Interventions LLT Next Visit Focus/Plan Next Note Type Treatment Note Next Visit Plan Progress flexibility, core and self-STM exercises, consider pool noodle and pect and rectus abdominus stretching.
--- NOTE | 2019-09-20 08:14 | PT.OTN ---
Current Diagnoses Low back pain (09/20/19) Physical Therapy Treatment Note PT-OP-A Visit Information Start: 08/23/19 07:23 Freq: Status: Active Protocol: Document 09/20/19 07:33 MB (Rec: 09/20/19 08:13 MB [id number]) Out-Patient Physical Therapy Visit Information Visit Information Visit Type Treatment Note Visit Note Medicare, unlimited Visit Start Time 07:33 Visit Stop Time 08:11 Total Visit Minutes 38 Visit Number 7 PT-OP-B Current Condition Start: 08/23/19 07:23 Freq: Status: Active Protocol: Document 08/23/19 09:50 MB (Rec: 08/23/19 10:31 MB [id number]) Current Condition History of Current Condition Onset Date Greater than 10 years History of Current Condition Pt reports that she has just been diagnosed with osteoporosis and osteopenia. 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 Her doctor wants her to have an infusion and she is thinking about Fosamax. Pt states that her back pain is getting better. She is able to go cross country skiing with her sons and just got back from [place]. PMH includes breast CA and B mastectomy. She has a history of dizziness. Pt reports pain up to 4/10 in her lower back that goes across. She gets tired easily. She has pain at night and has trouble getting to sleep. She sleeps on her stomach or on her side. She does not use a pillow between her knees when she sleeps on her side. She just got a new bed. It is a temperpedic mattress and firm but not too hard. Pt denies sensory changes in her legs and leg pain. She does report right great toe pain from arthritis and that she is seeing a clicking machine operator. She would like to get some PT for her foot as well and will call doctor to added to current PT plan. Prior Treatments and Tests PT in the past for her back and it went well. She also had PT s/p B mastectomy Treatment Goals Patient/Caregiver Goals To get some exercises. To get PT for her feet as well. PT-OP-C Subjective Start: 08/23/19 07:23 Freq: Status: Active Protocol: Document 09/20/19 07:33 MB (Rec: 09/20/19 08:13 MB [id number]) OP-PT Subjective Patient Comments Patient Comments Pt states that she might have to give up cross country skiing because she fell five times. She is a little sore. Her feet are doing great. PT-OP-J Posture/Palpation/Skin Start: 08/23/19 07:23 Freq: Status: Active Protocol: Document 08/23/19 09:50 MB (Rec: 08/23/19 14:58 MB [id number]) Posture Evaluation Comments Posture Comments Standing: mild Dowager's hump, decreased thoracic kyphosis, increased lumbar lordosis, anterior tilt pelvis, right convexity upper thoracic spine , right scapula protracted and elevated compared to the left , T4 spinous process protruded , left iliac crest slightly higher than the right and increased knee valgus greater on the right. 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 PT-OP-K Range of Motion Start: 08/23/19 07:23 Freq: Status: Active Protocol: Document 08/23/19 09:50 MB (Rec: 08/23/19 15:01 MB [id number]) Lumbar Spine Range of Motion Lumbar Spine Active Testing Position Standing Comments Fingers 3 from floor with forward flexion Little thoracic and lumbar movement with side bend--pt drops shoulders B Little lumbar extension with standing extension--pt extends head back PT-OP-M Strength Start: 08/23/19 07:23 Freq: Status: Active Protocol: Document 08/23/19 09:50 MB (Rec: 08/23/19 15:00 MB [id number]) Hip Strength Hip Manual Muscle Testing Left Flexion (L2) 5 Normal Abduction 4 Good Right Flexion (L2) 4 Good Abduction 3+ Fair+ Knee Strength Knee Manual Muscle Testing Left Flexion (S2) 4 Good Extension (L3) 4 Good Right Flexion (S2) 4 Good Extension (L3) 4 Good Ankle/Foot Strength Ankle and Foot Manual Muscle Testing Left Dorsiflexion (L4) 5 Normal Inversion 5 Normal Eversion (S1) 5 Normal Comments Great toe extension 4/5 Right Dorsiflexion (L4) 5 Normal Inversion 4 Good Eversion (S1) 4 Good Comments Great toe extension 4/5 PT-OP-Q Treatments Start: 08/23/19 07:23 Freq: Status: Active Protocol: Document 09/20/19 07:33 MB (Rec: 09/20/19 08:13 MB [id number]) Therapeutic Exercises Supine Exercises Hamstring, calf and AP stretch Comments 30 sec all movements, B, perform everyday Jovan stretch Comments 30 sec B, perform everyday Sitting Exercises Ankle eversion with level 1 band Comments 10 reps eversion only, perform 3x/wk at home [place] AP with band Comments 5 reps B, to perform 3x/wk at home as well Manual Therapy Treatment Manual Techniques 1 Comments STM B quads with rolling pin and increased tension B rectus mid belly and vastus lateralis Other Other Manual Treatments KT black over left first metatarsal area over extensor tendon from toe to tarsal PT-OP-T Assessment and Plan Start: 08/23/19 07:23 Freq: Status: Active Protocol: Document 09/20/19 07:33 MB (Rec: 09/20/19 08:13 MB [id number]) Physical Therapy Assessment Goals 5 Electric Accounting Machine Operator Goal (LTG) Pt will perform progressive HEP including alignment, core and LE strengthening, flexibility and balance exercises to improve balance and decrease pain by 10/22/2019. LTG Duration 8 weeks 4 Electric Accounting Machine Operator Goal (LTG) Pt will report a 75% improvement in back pain by 10/22/2019. LTG Duration 8 weeks 3 Fdc Goal (LTG) Pt will perform WNLs on a standardized balance test to decrease fall risk by 10/22/2019 . LTG Duration 8 weeks 2 Electric Accounting Machine Operator Goal (LTG) Pt will present with right ankle eversion and inversion to 5/5 to improve gait quality by 10/22/2019. LTG Duration 8 weeks 1 Electric Accounting Machine Operator Goal (LTG) Pt will present with improved LE strength to 5/5 B hip abduction and flexion and knee flexion and extension to improve gait quality by 2019. LTG Duration 8 weeks Assessment Summary Assessment Pt has not been performing Jovan stretch, hamstring stretches and ankle exercises. Pt performs today with handouts and PT writes out exercises on handout. Con't progression, strengthening only 3x/wk as pt will perform at home. Revised HEP 09/20/2019: Everyday: Calf stretch, pelvic realignment, lumbar rotation, abdominal drawing in, Jovan and hamstring stretches 3x/wk: Toe flexion with band and ankle eversion with band. Physical Therapy Plan Frequency and Duration Frequency of Treatment 2x/Week Duration of Treatment 8 weeks Plan of Care Start Date 08/23/19 Plan of Care End Date 10/22/19 Therapeutic Interventions Therapeutic Interventions Aquatic Therapy,Balance Training,Canalithic Repositioning,Gait Training, Home Exercise Program,Joint Mobilizations,Manual Therapy, Neuromuscular Re-education, Patient/Caregiver Education, Self-Care/Home Management,Soft Tissue Mobilization,Taping, Therapeutic Activities, Therapeutic Exercises Modalities Cold Pack/Ice Massage,Electric Stimulation,Hot Packs, Ultrasound Other Therapeutic Interventions LLT Next Visit Focus/Plan Next Note Type Treatment Note Next Visit Plan Progress flexibility, core and self-STM exercises, consider pool noodle and pect and rectus abdominus stretching. Progress quad STM, glute strengthening
--- NOTE | 2019-09-24 08:17 | PT.OTN ---
Current Diagnoses Low back pain (09/24/19) Physical Therapy Treatment Note PT-OP-A Visit Information Start: 08/23/19 07:23 Freq: Status: Active Protocol: Document 09/24/19 07:31 MB (Rec: 09/24/19 08:16 MB [id number]) Out-Patient Physical Therapy Visit Information Visit Information Visit Type Treatment Note Visit Note Medicare, unlimited Visit Start Time 07:31 Visit Stop Time 08:11 Total Visit Minutes 40 Visit Number 8 PT-OP-B Current Condition Start: 08/23/19 07:23 Freq: Status: Active Protocol: Document 08/23/19 09:50 MB (Rec: 08/23/19 10:31 MB [id number]) Current Condition History of Current Condition Onset Date Greater than 10 years History of Current Condition Pt reports that she has just been diagnosed with osteoporosis and osteopenia. 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 Her doctor wants her to have an infusion and she is thinking about Fosamax. Pt states that her back pain is getting better. She is able to go cross country skiing with her sons and just got back from [place]. PMH includes breast CA and B mastectomy. She has a history of dizziness. Pt reports pain up to 4/10 in her lower back that goes across. She gets tired easily. She has pain at night and has trouble getting to sleep. She sleeps on her stomach or on her side. She does not use a pillow between her knees when she sleeps on her side. She just got a new bed. It is a temperpedic mattress and firm but not too hard. Pt denies sensory changes in her legs and leg pain. She does report right great toe pain from arthritis and that she is seeing a test bore helper. She would like to get some PT for her foot as well and will call doctor to added to current PT plan. Prior Treatments and Tests PT in the past for her back and it went well. She also had PT s/p B mastectomy Treatment Goals Patient/Caregiver Goals To get some exercises. To get PT for her feet as well. PT-OP-C Subjective Start: 08/23/19 07:23 Freq: Status: Active Protocol: Document 09/24/19 07:31 MB (Rec: 09/24/19 08:16 MB [id number]) OP-PT Subjective Patient Comments Patient Comments Pt states that she is feeling better. PT-OP-J Posture/Palpation/Skin Start: 08/23/19 07:23 Freq: Status: Active Protocol: Document 08/23/19 09:50 MB (Rec: 08/23/19 14:58 MB [id number]) Posture Evaluation Comments Posture Comments Standing: mild Dowager's hump, decreased thoracic kyphosis, increased lumbar lordosis, anterior tilt pelvis, right convexity upper thoracic spine , right scapula protracted and elevated compared to the left , T4 spinous process protruded , left iliac crest slightly higher than the right and increased knee valgus greater on the right. 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 PT-OP-K Range of Motion Start: 08/23/19 07:23 Freq: Status: Active Protocol: Document 08/23/19 09:50 MB (Rec: 08/23/19 15:01 MB [id number]) Lumbar Spine Range of Motion Lumbar Spine Active Testing Position Standing Comments Fingers 3 from floor with forward flexion Little thoracic and lumbar movement with side bend--pt drops shoulders B Little lumbar extension with standing extension--pt extends head back PT-OP-M Strength Start: 08/23/19 07:23 Freq: Status: Active Protocol: Document 08/23/19 09:50 MB (Rec: 08/23/19 15:00 MB [id number]) Hip Strength Hip Manual Muscle Testing Left Flexion (L2) 5 Normal Abduction 4 Good Right Flexion (L2) 4 Good Abduction 3+ Fair+ Knee Strength Knee Manual Muscle Testing Left Flexion (S2) 4 Good Extension (L3) 4 Good Right Flexion (S2) 4 Good Extension (L3) 4 Good Ankle/Foot Strength Ankle and Foot Manual Muscle Testing Left Dorsiflexion (L4) 5 Normal Inversion 5 Normal Eversion (S1) 5 Normal Comments Great toe extension 4/5 Right Dorsiflexion (L4) 5 Normal Inversion 4 Good Eversion (S1) 4 Good Comments Great toe extension 4/5 PT-OP-Q Treatments Start: 08/23/19 07:23 Freq: Status: Active Protocol: Document 09/24/19 07:31 MB (Rec: 09/24/19 08:16 MB [id number]) Therapeutic Exercises Supine Exercises Core progression Comments Cues and demo: abdominal drawing in, lumbar rotation, HS, mini march Jovan stretch Comments B 10 sec with core engaged Sitting Exercises Rolling pin self-massage Comments Performed B, cues for rocking roller Standing Exercises SLS Comments SLS with arms out, pt can hold B 10 sec Manual Therapy Treatment Manual Techniques 1 Comments MWM B iliopsoas, rectus femoris with PT providing trigger point pressure and pt performing active HS, KT I strip over first extensor tendon left foot PT-OP-T Assessment and Plan Start: 08/23/19 07:23 Freq: Status: Active Protocol: Document 09/24/19 07:31 MB (Rec: 09/24/19 08:16 MB [id number]) Physical Therapy Assessment Goals 5 Skilled Nursing Goal (LTG) Pt will perform progressive HEP including alignment, core and LE strengthening, flexibility and balance exercises to improve balance and decrease pain by 10/22/2019. LTG Duration 8 weeks 4 Educational Diagnostician Goal (LTG) Pt will report a 75% improvement in back pain by 10/22/2019. LTG Duration 8 weeks 3 Skilled Nursing Goal (LTG) Pt will perform WNLs on a standardized balance test to decrease fall risk by 10/22/2019 . LTG Duration 8 weeks 2 Skilled Nursing Goal (LTG) Pt will present with right ankle eversion and inversion to 5/5 to improve gait quality by 10/22/2019. LTG Duration 8 weeks 1 Skilled Nursing Goal (LTG) Pt will present with improved LE strength to 5/5 B hip abduction and flexion and knee flexion and extension to improve gait quality by 2019. LTG Duration 8 weeks Assessment Summary Assessment Greater tension on the right hip compared to the left that improves with manual work. Con 't progression. Physical Therapy Plan Frequency and Duration Frequency of Treatment 2x/Week Duration of Treatment 8 weeks Plan of Care Start Date 08/23/19 Plan of Care End Date 10/22/19 Therapeutic Interventions Therapeutic Interventions Aquatic Therapy,Balance Training,Canalithic Repositioning,Gait Training, Home Exercise Program,Joint Mobilizations,Manual Therapy, Neuromuscular Re-education, Patient/Caregiver Education, Self-Care/Home Management,Soft Tissue Mobilization,Taping, Therapeutic Activities, Therapeutic Exercises Modalities Cold Pack/Ice Massage,Electric Stimulation,Hot Packs, Ultrasound Other Therapeutic Interventions LLT Next Visit Focus/Plan Next Note Type Treatment Note Next Visit Plan Progress glute and core strengthening
--- NOTE | 2019-10-02 16:49 | PT-OP ANOTE ---
PT spoke with pt who is feeling good and being active. Will cancel September appointments d/t COVID-19 and keep October 18, 2019 appointment at this time and pt is in agreement.
--- NOTE | 2019-10-26 13:13 | PT-OP ANOTE ---
PT calls pt. Pt is doing well. 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 She thinks that she has arthritis in her foot because it is creeping from her toe to her ankle. She is interested in evisits if available.
--- NOTE | 2019-11-09 16:27 | PT-OP ANOTE ---
PT calls pt and leaves message. PT communicates that we do not know yet when clinic will reopen, that clinic hours will be limited to begin with, that therapists and patients will wear masks and that the gym situation will allow for 6 feet between patients. PT communicates that pt can decide if she wants to con't with PT when the clinic opens pending her current functional status and I with HEP.
--- NOTE | 2019-11-26 11:19 | PT-OP ANOTE ---
PT calls pt who is eager to check in with PT per outpatient appointment on 12/03/2019.
--- NOTE | 2019-12-03 10:19 | PT.OTN ---
Current Diagnoses Low back pain (12/03/19) Physical Therapy Treatment Note PT-OP-A Visit Information Start: 08/23/19 07:23 Freq: Status: Active Protocol: Document 12/03/19 09:46 MB (Rec: 12/03/19 10:19 MB [id number]) Out-Patient Physical Therapy Visit Information Visit Information Visit Type Treatment Note Visit Note Medicare, unlimited Visit Start Time 09:46 Visit Stop Time 10:16 Total Visit Minutes 30 Visit Number 1 PT-OP-B Current Condition Start: 08/23/19 07:23 Freq: Status: Active Protocol: Document 08/23/19 09:50 MB (Rec: 08/23/19 10:31 MB [id number]) Current Condition History of Current Condition Onset Date Greater than 10 years History of Current Condition Pt reports that she has just been diagnosed with osteoporosis and osteopenia. 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 Her doctor wants her to have an infusion and she is thinking about Fosamax. Pt states that her back pain is getting better. She is able to go cross country skiing with her sons and just got back from [place]. PMH includes breast CA and B mastectomy. She has a history of dizziness. Pt reports pain up to 4/10 in her lower back that goes across. She gets tired easily. She has pain at night and has trouble getting to sleep. She sleeps on her stomach or on her side. She does not use a pillow between her knees when she sleeps on her side. She just got a new bed. It is a temperpedic mattress and firm but not too hard. Pt denies sensory changes in her legs and leg pain. She does report right great toe pain from arthritis and that she is seeing a technology sales representative. She would like to get some PT for her foot as well and will call doctor to added to current PT plan. Prior Treatments and Tests PT in the past for her back and it went well. She also had PT s/p B mastectomy Treatment Goals Patient/Caregiver Goals To get some exercises. To get PT for her feet as well. PT-OP-C Subjective Start: 08/23/19 07:23 Freq: Status: Active Protocol: Document 12/03/19 09:46 MB (Rec: 12/03/19 10:19 MB [id number]) OP-PT Subjective Patient Comments Patient Comments Pt states that she is feeling better. She reports an overall 75% improvement in back and foot pain since starting PT. She is performing her exercises and is back to hiking. PT-OP-J Posture/Palpation/Skin Start: 08/23/19 07:23 Freq: Status: Active Protocol: Document 08/23/19 09:50 MB (Rec: 08/23/19 14:58 MB [id number]) Posture Evaluation Comments Posture Comments Standing: mild Dowager's hump, decreased thoracic kyphosis, increased lumbar lordosis, anterior tilt pelvis, right convexity upper thoracic spine , right scapula protracted and elevated compared to the left , T4 spinous process protruded , left iliac crest slightly higher than the right and increased knee valgus greater on the right. 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 PT-OP-K Range of Motion Start: 08/23/19 07:23 Freq: Status: Active Protocol: Document 08/23/19 09:50 MB (Rec: 08/23/19 15:01 MB [id number]) Lumbar Spine Range of Motion Lumbar Spine Active Testing Position Standing Comments Fingers 3 from floor with forward flexion Little thoracic and lumbar movement with side bend--pt drops shoulders B Little lumbar extension with standing extension--pt extends head back PT-OP-M Strength Start: 08/23/19 07:23 Freq: Status: Active Protocol: Document 08/23/19 09:50 MB (Rec: 08/23/19 15:00 MB [id number]) Hip Strength Hip Manual Muscle Testing Left Flexion (L2) 5 Normal Abduction 4 Good Right Flexion (L2) 4 Good Abduction 3+ Fair+ Knee Strength Knee Manual Muscle Testing Left Flexion (S2) 4 Good Extension (L3) 4 Good Right Flexion (S2) 4 Good Extension (L3) 4 Good Ankle/Foot Strength Ankle and Foot Manual Muscle Testing Left Dorsiflexion (L4) 5 Normal Inversion 5 Normal Eversion (S1) 5 Normal Comments Great toe extension 4/5 Right Dorsiflexion (L4) 5 Normal Inversion 4 Good Eversion (S1) 4 Good Comments Great toe extension 4/5 PT-OP-Q Treatments Start: 08/23/19 07:23 Freq: Status: Active Protocol: Document 12/03/19 09:46 MB (Rec: 12/03/19 10:19 MB [id number]) Therapeutic Exercises Other Exercises Reviewed all exercises Other Exercise Name D/cd Jovan luke Comments Increased ankle and foot exercises to level 2 band, provided to pt Tandem gait for HEP Comments Added to HEP today, pt to perform at home FGA Comments score with most trouble with tandem gait and backwards gait PT-OP-T Assessment and Plan Start: 08/23/19 07:23 Freq: Status: Active Protocol: Document 12/03/19 09:46 MB (Rec: 12/03/19 10:19 MB [id number]) Physical Therapy Assessment Goals 5 Senior Care Goal (LTG) Pt will perform progressive HEP including alignment, core and LE strengthening, flexibility and balance exercises to improve balance and decrease pain by 10/22/2019. 12/03/2019: Goal met LTG Duration 8 weeks 4 Senior Care Goal (LTG) Pt will report a 75% improvement in back pain by 10/22/2019. 12/03/2019: Goal met LTG Duration 8 weeks 3 Bale Sewer Goal (LTG) Pt will perform WNLs on a standardized balance test to decrease fall risk by 10/22/2019 . 12/03/2019: FGA score today. Most trouble with tandem walking and backwards walking, added tandem walking for home LTG Duration 8 weeks 2 Senior Care Goal (LTG) Pt will present with right ankle eversion and inversion to 5/5 to improve gait quality by 10/22/2019. 12/03/2019: Pt presents with 5/ 5 B inversion and eversion LTG Duration 8 weeks 1 Senior Care Goal (LTG) Pt will present with improved LE strength to 5/5 B hip abduction and flexion and knee flexion and extension to improve gait quality by 2019. 12/03/2019: Hip flexion left 5/ 5, right 4/5, hip abduction left 5/5, right 4/5; B knee flexion and extension 5/5. LTG Duration 8 weeks Assessment Summary Assessment Pt has met pain, HEP and balance goals since starting PT. She has met knee and ankle strength goals. Her hip strength is improved. She is ready to d/c PT and will con't with HEP at home. Added Tandem walking to HEP and reviewed all exercises today. Will d/c PT. Physical Therapy Plan Frequency and Duration Frequency of Treatment 1x/Week Duration of Treatment 1 treatment Plan of Care Start Date 12/03/19 Plan of Care End Date 12/03/19 Therapeutic Interventions Therapeutic Interventions Aquatic Therapy,Balance Training,Canalithic Repositioning,Gait Training, Home Exercise Program,Joint Mobilizations,Manual Therapy, Neuromuscular Re-education, Patient/Caregiver Education, Self-Care/Home Management,Soft Tissue Mobilization,Taping, Therapeutic Activities, Therapeutic Exercises Modalities Cold Pack/Ice Massage,Electric Stimulation,Hot Packs, Ultrasound Other Therapeutic Interventions [facility]
--- NOTE | 2019-12-03 10:22 | PT.OPPOC ---
Physical, Occupational & Speech Therapy At [facility] Current Diagnoses Low back pain (12/03/19) Visit Care Team Role Provider Type Gonzalo Rudolph MD Attending Provider Physician Primary Care Provider Referring Provider Specialty: Internal Medicine Address: [address] [place] [address], [id number] Email: [email or web address] Plan Of Care PT-OP-T Assessment and Plan Start: 08/23/19 07:23 Freq: Status: Active Protocol: Document 12/03/19 09:46 MB (Rec: 12/03/19 10:19 MB [id number]) Physical Therapy Assessment Goals 5 Fci Goal (LTG) Pt will perform progressive HEP including alignment, core and LE strengthening, flexibility and balance exercises to improve balance and decrease pain by 10/22/2019. 12/03/2019: Goal met LTG Duration 8 weeks 4 Fci Goal (LTG) Pt will report a 75% improvement in back pain by 10/22/2019. 12/03/2019: Goal met LTG Duration 8 weeks 3 Oil Tank Car Cleaner Goal (LTG) Pt will perform WNLs on a standardized balance test to decrease fall risk by 10/22/2019 . 12/03/2019: FGA score 27/30 today. Most trouble with tandem walking and backwards walking, added tandem walking for home LTG Duration 8 weeks 2 Oil Tank Car Cleaner Goal (LTG) Pt will present with right ankle eversion and inversion to 5/5 to improve gait quality by 10/22/2019. 12/03/2019: Pt presents with 5/ 5 B inversion and eversion LTG Duration 8 weeks 1 Fci Goal (LTG) Pt will present with improved LE strength to 5/5 B hip abduction and flexion and knee flexion and extension to improve gait quality by 2019. 12/03/2019: Hip flexion left 5/ 5, right 4/5, hip abduction left 5/5, right 4/5; B knee flexion and extension 5/5. LTG Duration 8 weeks Assessment Summary Assessment Pt has met pain, HEP and balance goals since starting PT. She has met knee and ankle strength goals. Her hip strength is improved. She is ready to d/c PT and will con't with HEP at home. Added Tandem walking to HEP and reviewed all exercises today. Will d/c PT. Physical Therapy Plan Frequency and Duration Frequency of Treatment 1x/Week Duration of Treatment 1 treatment Plan of Care Start Date 12/03/19 Plan of Care End Date 12/03/19 Therapeutic Interventions Therapeutic Interventions Aquatic Therapy,Balance Training,Canalithic Repositioning,Gait Training, Home Exercise Program,Joint Mobilizations,Manual Therapy, Neuromuscular Re-education, Patient/Caregiver Education, Self-Care/Home Management,Soft Tissue Mobilization,Taping, Therapeutic Activities, Therapeutic Exercises Modalities Cold Pack/Ice Massage,Electric Stimulation,Hot Packs, Ultrasound Other Therapeutic Interventions LLT Plan of Care Dates Plan of Care Start Date 12/03/19 Plan of Care End Date 12/03/19 Electronically Signed by: Olivia Casillas, PT 12/03/19 102 Please Sign and Return: I have reviewed this Plan of Care and certify that the skilled therapy services above are required to meet the patient?s needs. Physician Signature Date Printed Name and Credentials Clinical Instructor Signature Printed Name and Credentials
--- NOTE | 2019-12-03 10:22 | PT.OPDS ---
Current Diagnoses Low back pain (12/03/19) Visit Care Team Role Provider Type Gonzalo Rudolph MD Attending Provider Physician Primary Care Provider Referring Provider Specialty: Internal Medicine Address: [address] [place] [address], [facility] Email: [email or web address] Visit Number Visit Number 1 Discharge Summary PT-OP-B Current Condition Start: 08/23/19 07:23 Freq: Status: Active Protocol: Document 08/23/19 09:50 MB (Rec: 08/23/19 10:31 MB [id number]) Current Condition History of Current Condition Onset Date Greater than 10 years History of Current Condition Pt reports that she has just been diagnosed with osteoporosis and osteopenia. 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 Her doctor wants her to have an infusion and she is thinking about Fosamax. Pt states that her back pain is getting better. She is able to go cross country skiing with her sons and just got back from [place]. PMH includes breast CA and B mastectomy. She has a history of dizziness. Pt reports pain up to 4/10 in her lower back that goes across. She gets tired easily. She has pain at night and has trouble getting to sleep. She sleeps on her stomach or on her side. She does not use a pillow between her knees when she sleeps on her side. She just got a new bed. It is a temperpedic mattress and firm but not too hard. Pt denies sensory changes in her legs and leg pain. She does report right great toe pain from arthritis and that she is seeing a adjunct psychology professor. She would like to get some PT for her foot as well and will call doctor to added to current PT plan. Prior Treatments and Tests PT in the past for her back and it went well. She also had PT s/p B mastectomy Treatment Goals Patient/Caregiver Goals To get some exercises. To get PT for her feet as well. PT-OP-C Subjective Start: 08/23/19 07:23 Freq: Status: Active Protocol: Document 12/03/19 09:46 MB (Rec: 12/03/19 10:19 MB [id number]) OP-PT Subjective Patient Comments Patient Comments Pt states that she is feeling better. She reports an overall 75% improvement in back and foot pain since starting PT. She is performing her exercises and is back to [employer]. PT-OP-J Posture/Palpation/Skin Start: 08/23/19 07:23 Freq: Status: Active Protocol: Document 08/23/19 09:50 MB (Rec: 08/23/19 14:58 MB [id number]) Posture Evaluation Comments Posture Comments Standing: mild Dowager's hump, decreased thoracic kyphosis, increased lumbar lordosis, anterior tilt pelvis, right convexity upper thoracic spine , right scapula protracted and elevated compared to the left , T4 spinous process protruded , left iliac crest slightly higher than the right and increased knee valgus greater on the right. 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 PT-OP-K Range of Motion Start: 08/23/19 07:23 Freq: Status: Active Protocol: Document 08/23/19 09:50 MB (Rec: 08/23/19 15:01 MB [id number]) Lumbar Spine Range of Motion Lumbar Spine Active Testing Position Standing Comments Fingers 3 from floor with forward flexion Little thoracic and lumbar movement with side bend--pt drops shoulders B Little lumbar extension with standing extension--pt extends head back PT-OP-M Strength Start: 08/23/19 07:23 Freq: Status: Active Protocol: Document 08/23/19 09:50 MB (Rec: 08/23/19 15:00 MB [id number]) Hip Strength Hip Manual Muscle Testing Left Flexion (L2) 5 Normal Abduction 4 Good Right Flexion (L2) 4 Good Abduction 3+ Fair+ Knee Strength Knee Manual Muscle Testing Left Flexion (S2) 4 Good Extension (L3) 4 Good Right Flexion (S2) 4 Good Extension (L3) 4 Good Ankle/Foot Strength Ankle and Foot Manual Muscle Testing Left Dorsiflexion (L4) 5 Normal Inversion 5 Normal Eversion (S1) 5 Normal Comments Great toe extension 4/5 Right Dorsiflexion (L4) 5 Normal Inversion 4 Good Eversion (S1) 4 Good Comments Great toe extension 4/5 PT-OP-T Assessment and Plan Start: 08/23/19 07:23 Freq: Status: Active Protocol: Document 12/03/19 09:46 MB (Rec: 12/03/19 10:19 MB [id number]) Physical Therapy Assessment Goals 5 Nursing Home Goal (LTG) Pt will perform progressive HEP including alignment, core and LE strengthening, flexibility and balance exercises to improve balance and decrease pain by 10/22/2019. 12/03/2019: Goal met LTG Duration 8 weeks 4 Nursing Home Goal (LTG) Pt will report a 75% improvement in back pain by 10/22/2019. 12/03/2019: Goal met LTG Duration 8 weeks 3 Mandolin Repair Person Goal (LTG) Pt will perform WNLs on a standardized balance test to decrease fall risk by 10/22/2019 . 12/03/2019: FGA score 27/30 today. Most trouble with tandem walking and backwards walking, added tandem walking for home LTG Duration 8 weeks 2 Mandolin Repair Person Goal (LTG) Pt will present with right ankle eversion and inversion to 5/5 to improve gait quality by 10/22/2019. 12/03/2019: Pt presents with 5/ 5 B inversion and eversion LTG Duration 8 weeks 1 Mandolin Repair Person Goal (LTG) Pt will present with improved LE strength to 5/5 B hip abduction and flexion and knee flexion and extension to improve gait quality by 2019. 12/03/2019: Hip flexion left 5/ 5, right 4/5, hip abduction left 5/5, right 4/5; B knee flexion and extension 5/5. LTG Duration 8 weeks Assessment Summary Assessment Pt has met pain, HEP and balance goals since starting PT. She has met knee and ankle strength goals. Her hip strength is improved. She is ready to d/c PT and will con't with HEP at home. Added Tandem walking to HEP and reviewed all exercises today. Will d/c PT. Physical Therapy Plan Frequency and Duration Frequency of Treatment 1x/Week Duration of Treatment 1 treatment Plan of Care Start Date 12/03/19 Plan of Care End Date 12/03/19 Therapeutic Interventions Therapeutic Interventions Aquatic Therapy,Balance Training,Canalithic Repositioning,Gait Training, Home Exercise Program,Joint Mobilizations,Manual Therapy, Neuromuscular Re-education, Patient/Caregiver Education, Self-Care/Home Management,Soft Tissue Mobilization,Taping, Therapeutic Activities, Therapeutic Exercises Modalities Cold Pack/Ice Massage,Electric Stimulation,Hot Packs, Ultrasound Other Therapeutic Interventions LLT
== END 2019-12-03 13:53 | disposition home or self-care (01) ==
LOC: PHYS 09:45
PROVIDERS: PCP Internal Medicine; Referring Provider Internal Medicine; Visit Provider Internal Medicine
DX: M54.5 Low back pain (principal)
CPT/HCPCS: 97110; 97112; 97140; 97161; 97535

== ENCOUNTER 2020-01-01 06:10 | Emergency (ER) | payer MEDICARE, OTHER, SELFPAY ==
--- NOTE | 2020-01-01 06:16 | ED.CHESTPAIN ---
HPI - Chest Pain <Harsha Quigley DO - Last Filed: 01/01/20 23:29> General Chief Complaint: Chest Pain Stated Complaint: Chest Pain Time Seen by Provider: 01/01/20 06:12 Source: patient Mode of arrival: Ambulatory Limitations: no limitations History of Present Illness HPI narrative: 79-year-old female nonsmoker with noncontributory medical history presents with a chief complaint of a sharp and stabbing left anterior chest pain which has been present since she took a fall while playing pickleball few days ago. It became more intense this morning and she states it is worse when taking a deep breath, coughing, pressing her chest, or moving her left arm. She denies any shortness of breath. She denies fever or chills. She denies hemoptysis. She is not dizzy nor weak or lightheaded. She denies any nausea or vomiting. She denies any unexplained diaphoresis. She denies any exertional symptoms. She states that while playing pickleball she got her feet caught up under and she landed on her anterior chest and denies other injury. She has no head, neck or back pain. She denies any extremity pain. MD complaint: chest pain Onset (ago): day(s) Duration: constant Pain location: left chest Severity: moderate Quality: sharp Pain radiation: none Relieving factors: rest Exacerbating factors: inspiration, palpation and movement Context: trauma/injury Treatments prior to arrival chest pain: none Related Data On Oral Contraceptives: No Home Medications Medication Instructions Recorded Confirmed No Known Home Medications 11/28/17 11/28/17 Allergies Allergy/AdvReac Type Severity Reaction Status Date / Time levofloxacin [From LEVAQUIN] Allergy Severe MADE ME Verified 01/20/19 08:37 SCREWY doxorubicin [From Adriamycin] Allergy Intermediate Verified 01/20/19 08:37 Review of Systems <Harsha Quigley DO - Last Filed: 01/01/20 23:29> Constitutional Constitutional: Denies chills, Denies fatigue, Denies fever(s), Denies frequent falls, Denies lethargy and Denies weakness Eyes Eyes: Denies change in vision, Denies eye discharge, Denies irritation and Denies loss of vision ENT Ears, Nose, Mouth, and Throat: Denies change in voice, Denies dizziness, Denies neck pain, Denies sore throat and Denies throat swelling Cardiovascular Cardiovascular: Reports chest pain, Denies irregular heart rhythm, Denies lightheadedness, Denies palpitations, Denies dyspnea, Denies dyspnea on exertion and Denies orthopnea Respiratory Respiratory: Denies cough, Denies dyspnea, Denies dyspnea on exertion and Denies wheezing Gastrointestinal Gastrointestinal: Denies abdominal pain, Denies change in bowel habits, Denies diarrhea, Denies nausea and Denies vomiting Musculoskeletal Musculoskeletal: Denies neck pain and Denies numbness Integumentary/Breasts Skin/Breast: Denies pruritus, Denies erythema, Denies rash and Denies wounds Neurologic Neurologic: Denies behavioral changes, Denies confusion, Denies dizziness, Denies frequent falls, Denies loss of vision, Denies numbness and Denies weakness Psychiatric Psychiatric: Denies anxiety, Denies behavioral changes, Denies confusion, Denies depression, Denies homicidal ideation and Denies suicidal ideation Endocrine Endocrine: Denies fatigue, Denies flushing and Denies palpitations Hematologic/Lymphatic Hematologic/Lymphatic: Denies easy bruising Allergic/Immunologic Allergic/Immunologic: Denies urticaria, Denies throat swelling and Denies wheezing Patient History <Harsha Quigley DO - Last Filed: 01/01/20 23:29> Medical History Dyslipidemia (Chronic) Inflammatory breast cancer (Resolved) Surgical History H/O bilateral mastectomy (Chronic) History of mastectomy (Inactive) Social History Smoking Status: Never smoker alcohol intake: current substance use type: does not use Smoking Status: Never smoker Exam <Harsha Quigley DO - Last Filed: 01/01/20 23:29> Narrative Exam Narrative: GENERAL: [79] year old patient appears stated age. Well-nourished, well-developed patient, in mild distress. HEAD: Atraumatic. Normocephalic. EYES: Pupils equal round and reactive. Extraocular motions intact. No scleral icterus. No injection or drainage. ENT: Nose without bleeding, purulent drainage. Throat without erythema, tonsillar hypertrophy or exudate. Airway patent. NECK: Trachea midline. Non tender CARDIOVASCULAR: Regular rate and rhythm without murmurs, gallops, or rubs. Sharp anterior chest pain with palpation. No discoloration, swelling or crepitance. RESPIRATORY: Clear to auscultation. Breath sounds equal bilaterally. No wheezes, rales, or rhonchi. GASTROINTESTINAL: Abdomen soft, non-tender, nondistended. EXTREMITIES: No edema or joint tenderness. BACK: Nontender without deformity or crepitance. No flank tenderness. NEURO: AOx3. SKIN: No rash or erythema of visible areas Initial Vital Signs Initial Vital Signs: Vital Signs Temperature 97.8 F 01/01/20 06:21 Pulse Rate 88 01/01/20 06:21 Respiratory Rate 15 01/01/20 06:21 Blood Pressure 190/89 H 01/01/20 06:21 Pulse Oximetry 98 01/01/20 06:21 <Jarrett Saeed DO - Last Filed: 01/01/20 08:42> Initial Vital Signs Initial Vital Signs: Vital Signs Temperature 97.8 F 01/01/20 06:21 Pulse Rate 88 01/01/20 06:21 Respiratory Rate 15 01/01/20 06:21 Blood Pressure 190/89 H 01/01/20 06:21 Pulse Oximetry 98 01/01/20 06:21 Course <Harsha Quigley DO - Last Filed: 01/01/20 23:29> Course Course Narrative: fall with sharp pain and questionable fractures on left ribs. CT ordered to add detail and rule out other traumatic injury. Low suspicion for cardiac disease given history, exam, non-ischemic EKG, normal troponin. Signed out to Dr. Saeed for final disposition. Orders Ordered: Discontinued Medications Lidocaine (Lidoderm) 1 each TOP NOW ONE Stop: 01/01/20 06:52 Last Admin: 01/01/20 07:23 Dose: 1 each Documented by: ZEUS Vital Signs Vital signs: Vital Signs - 8 hr 01/01/20 06:21 01/01/20 07:30 01/01/20 08:00 Temperature 97.8 F Pulse Rate 88 58 L 60 Respiratory Rate 15 17 18 Blood Pressure 190/89 H Blood Pressure [Right Arm] 161/92 H 160/80 H Pulse Oximetry 98 97 96 <Jarrett Saeed DO - Last Filed: 01/01/20 08:42> Orders Ordered: Discontinued Medications Lidocaine (Lidoderm) 1 each TOP NOW ONE Stop: 01/01/20 06:52 Last Admin: 01/01/20 07:23 Dose: 1 each Documented by: ZEUS Vital Signs Vital signs: Vital Signs - 8 hr 01/01/20 06:21 01/01/20 07:30 01/01/20 08:00 Temperature 97.8 F Pulse Rate 88 58 L 60 Respiratory Rate 15 17 18 Blood Pressure 190/89 H Blood Pressure [Right Arm] 161/92 H 160/80 H Pulse Oximetry 98 97 96 MDM - Chest Pain <Harsha Quigley DO - Last Filed: 01/01/20 23:29> Lab Data Result diagrams: 01/01/20 06:15 01/01/20 06:15 Labs: Lab Results 01/01/20 01/01/20 Range/Units 06:15 06:15 WBC 4.4 L (4.5-11.0) X10^3/uL RBC 4.18 (4.0-5.2) X10^6/uL Hgb 13.8 (12.0-16.0) g/dL Hct 39.5 (36-46) % MCV 94.3 (80-100) fL MCH 33.0 (26-34) PG MCHC 35.0 (30-36) % RDW 12.9 (11.6-14.8) % Plt Count 219 (150-400) X10^3/uL Neut % (Auto) 56.5 (50-75) % Lymph % (Auto) 33.0 (25-40) % [place] % (Auto) 7.9 (3-14) % Eos % (Auto) 1.4 L (2-4) % Baso % (Auto) 1.2 (0-2) % Neut # (Auto) 2500 (8339-8569) /uL Lymph # (Auto) 1400 (2271-0334) /uL [place] # (Auto) 300 (0-900) /uL Eos # (Auto) 100 (0-450) /uL Baso # (Auto) 100 (0-100) /uL Sodium 141 (137-145) mmol/L Potassium 3.8 (3.4-5.1) mmol/L Chloride 107 (98-107) mmol/L Carbon Dioxide 27 (22-32) mmol/L BUN 14 (7-17) mg/dL Creatinine 0.50 L (0.52-1.04) mg/dL Estimated GFR > 60.0 (>60) mL/min BUN/Creatinine Ratio 28.0 H (6-22) Glucose 107 (80-110) mg/dL Calcium 9.6 (8.4-10.2) mg/dL Total Bilirubin 0.8 (0.2-1.3) mg/dL AST 29 (14-36) IU/L ALT 21 (<35) IU/L Alkaline Phosphatase 81 (38-126) U/L Total Creatine Kinase 86 (30-135) U/L CK-MB (CK-2) TNP CK-MB (CK-2) Rel Index TNP Troponin I < 0.012 (0.01-0.034) ng/mL Total Protein 7.5 (6.3-8.2) g/dL Albumin 4.6 (3.5-5.0) g/dL Globulin 2.9 (1.7-4.1) g/dL Albumin/Globulin Ratio 1.6 (1.0-2.8) Lipase 58 (23-300) U/L <Jarrett Saeed DO - Last Filed: 01/01/20 08:42> Lab Data Labs: Lab Results 01/01/20 01/01/20 Range/Units 06:15 06:15 WBC 4.4 L (4.5-11.0) X10^3/uL RBC 4.18 (4.0-5.2) X10^6/uL Hgb 13.8 (12.0-16.0) g/dL Hct 39.5 (36-46) % MCV 94.3 (80-100) fL MCH 33.0 (26-34) PG MCHC 35.0 (30-36) % RDW 12.9 (11.6-14.8) % Plt Count 219 (150-400) X10^3/uL Neut % (Auto) 56.5 (50-75) % Lymph % (Auto) 33.0 (25-40) % [place] % (Auto) 7.9 (3-14) % Eos % (Auto) 1.4 L (2-4) % Baso % (Auto) 1.2 (0-2) % Neut # (Auto) 2500 (9606-7762) /uL Lymph # (Auto) 1400 (0236-8250) /uL [place] # (Auto) 300 (0-900) /uL Eos # (Auto) 100 (0-450) /uL Baso # (Auto) 100 (0-100) /uL Sodium 141 (137-145) mmol/L Potassium 3.8 (3.4-5.1) mmol/L Chloride 107 (98-107) mmol/L Carbon Dioxide 27 (22-32) mmol/L BUN 14 (7-17) mg/dL Creatinine 0.50 L (0.52-1.04) mg/dL Estimated GFR > 60.0 (>60) mL/min BUN/Creatinine Ratio 28.0 H (6-22) Glucose 107 (80-110) mg/dL Calcium 9.6 (8.4-10.2) mg/dL Total Bilirubin 0.8 (0.2-1.3) mg/dL AST 29 (14-36) IU/L ALT 21 (<35) IU/L Alkaline Phosphatase 81 (38-126) U/L Total Creatine Kinase 86 (30-135) U/L CK-MB (CK-2) TNP CK-MB (CK-2) Rel Index TNP Troponin I < 0.012 (0.01-0.034) ng/mL Total Protein 7.5 (6.3-8.2) g/dL Albumin 4.6 (3.5-5.0) g/dL Globulin 2.9 (1.7-4.1) g/dL Albumin/Globulin Ratio 1.6 (1.0-2.8) Lipase 58 (23-300) U/L Imaging Data rib x-ray: Radiologist's Impression: [address] [address] XRay Report Signed Patient: Tammi Yanez LMR#: [id number] : 2Acct:[id number] Age/Sex: 79 / FDate of Service: 01/01/20 Loc: ED Accession Number: [id number] Procedure: XR ribs LT min 3V w CXR1V Ordering Provider: Harsha Quigley D.O. PROCEDURE: XR RIBS LT MIN 3V W CXR1V INDICATIONS: fall with left rib pain TECHNIQUE: 2 views of the left ribs were acquired, along with a single view chest. COMPARISON: [facility], CR, CHEST 2 VIEW, 02/13/2014, 10:40. [facility], CT, CT CHEST WO CON, 01/01/2020, 6:55. FINDINGS: Surgical changes and devices: Left breast and biaxillary surgical clips. Cholecystectomy clips. Bones and chest wall: No fractures or dislocations. No suspicious bony lesions. Calcification in the left breast/chest wall, unchanged. Lungs and pleura: No pleural effusions or pneumothorax. Minimal bibasilar streaky opacity is most compatible with atelectasis or scarring. Mediastinum: Mediastinal contours appear normal. Heart size is normal. IMPRESSION: No displaced left-sided rib fracture. No acute cardiopulmonary abnormality. Dictated by: Volodymyr Cuellar M.D. on 01/01/2020 at 7:53 Approved by: Volodymyr Cuellar M.D. on 01/01/2020 at 7:56 CT scan - chest: Radiologist's Impression: [place] [address] CT Scan Report Signed Patient: Tammi Yanez LMR#: [id number] : 2Acct:[id number] Age/Sex: 79 / FDate of Service: 01/01/20 Loc: ED Accession Number: [id number] Procedure: CT chest wo con Ordering Provider: Harsha Quigley D.O. PROCEDURE: CT CHEST WO CON INDICATIONS: fall with severe, sharp chest pain, possible rib fracture TECHNIQUE: Noncontrast 5 mm thick sections acquired from the pulmonary apices to the posterior costophrenic angles. 1 mm lung window, 5 mm thick coronal and sagittal and 7 mm axial MIP reformats were then acquired. For radiation dose reduction, the following was used: automated exposure control, adjustment of mA and/or kV according to patient size. COMPARISON: [facility], CR, XR RIBS LT MIN 3V W CXR1V, 01/01/2020, 6:18. [facility], CR, CHEST 1 VIEW, 12/26/2013, 10:48. FINDINGS: Image quality: Excellent. Lungs and pleura: Mild bibasilar streaky and groundglass opacity, most compatible with atelectasis or scarring. No mass or significant pulmonary nodule. Left apex calcified pleural plaque. Tiny cyst in the left upper lobe. No pleural effusions or pneumothorax. Central and peripheral airways are patent and normal in caliber. Mediastinum: Heart size is normal. No significant pericardial effusion. No mediastinal adenopathy by size criteria. Thoracic aorta and central pulmonary arteries are normal in size. Esophagus is normal in caliber. No hiatal hernia. Bones and chest wall: No suspicious bony lesions. No rib fracture identified. Note, the inferior ribs are incompletely visualized. Oval calcification adjacent to the left lateral 5th rib, unchanged. No vertebral body compression fractures. No axillary or supraclavicular adenopathy by size criteria. Axillary clips bilaterally. Thyroid gland demonstrates small thyroid nodules bilaterally. Coarse calcifications in the left thyroid lobe. Right mastectomy. Abdomen: Visualized upper abdominal solid organs and bowel loops appear normal in the absence of contrast. IMPRESSION: 1. No rib fracture demonstrated. Note: The most inferior ribs are not visualized. 2. Mild bibasilar atelectasis or scarring. Left apex calcified pleural plaque. 3. No pleural effusion. 4. Right mastectomy. No metastatic disease in the chest identified. 5. Bilateral thyroid nodules. -Further evaluation with dedicated thyroid ultrasound should be considered. No significant discrepancy with the overnight preliminary interpretation. Dictated by: Volodymyr Cuellar M.D. on 01/01/2020 at 7:56 Approved by: Volodymyr Cuellar M.D. on 01/01/2020 at 8:10 MDM Narrative Medical decision making narrative: Dr saeed: Received turned over from night provider. Reviewed patient's history and physical. Reviewed patient's labs. CT scan pending upon my assumption of care. The CT scan resulted is no rib fractures. No underlying lung pathology. I did talk with the patient. Perform my own independent exam. Upon further discussion with the patient she has have left-sided sharp pain. It is somewhat worse with moving her arm and palpation however she states that the pain that she is having today started this morning and not necessarily after she fell on Monday several days ago. Had a long discussion with her about her symptoms. We did discuss her risks of cardiac etiology of her pain. We did discuss admitting her to the hospital. I did recommend admitting her to the hospital however after this discussion the patient stated that she would rather contact her primary doctor and have further provocative testing done as an outpatient. She is alert oriented x3. GCS of 15. In my opinion has the capacity to make decisions. She did express her understanding of the risks and benefits of both being admitted to the hospital also being discharged home. She expressed understanding that there is a potential that her chest discomfort today is cardiac in nature however again after this discussion she stated that she would like to follow-up with her primary doctor. She did state that she would return to the emergency department if her symptoms worsen. Discharge Plan Departure Patient Disposition: Home Clinical Impression: Atypical chest pain Discharge Date/Time: 01/01/20 09:10 Instructions: DI for Atypical Chest Pain Activity Restrictions/Additional Instructions: After our discussion you did make the decision to be discharged home and follow-up with your primary doctor. I highly recommend that you contact him today to schedule a follow-up appointment in to discuss the indications for a stress test. Please return to the emergency department for any new or worsening symptoms. Prescriptions: No Action No Known Home Medications RF: 0 Referrals: Gonzalo Rudolph MD [Primary Care Provider] -
[2020-01-01 06:21] VITALS: BP 190/89; PULSE 88; RESP 15; TEMP 36.6; O2SAT 98; BMI 29.2
--- NOTE | 2020-01-01 06:24 | DI.RAD.S_ITS ---
PROCEDURE: XR RIBS LT MIN 3V W CXR1V INDICATIONS: fall with left rib pain TECHNIQUE: 2 views of the left ribs were acquired, along with a single view chest. COMPARISON: [facility], CR, CHEST 2 VIEW, 02/13/2014, 10:40. [facility], CT, CT CHEST WO CON, 01/01/2020, 6:55. FINDINGS: Surgical changes and devices: Left breast and biaxillary surgical clips. Cholecystectomy clips. Bones and chest wall: No fractures or dislocations. No suspicious bony lesions. Calcification in the left breast/chest wall, unchanged. Lungs and pleura: No pleural effusions or pneumothorax. Minimal bibasilar streaky opacity is most compatible with atelectasis or scarring. Mediastinum: Mediastinal contours appear normal. Heart size is normal. IMPRESSION: No displaced left-sided rib fracture. No acute cardiopulmonary abnormality. Dictated by: Volodymyr Cuellar M.D. on 01/01/2020 at 7:53 Approved by: Volodymyr Cuellar M.D. on 01/01/2020 at 7:56
[2020-01-01 06:30] LABS: Add Manual Diff / Slide Review NO; Basophils Absolute Auto 100 /uL (0-100); Basophils Percent Auto 1.2 % (0-2); Eosinophils Absolute Auto 100 /uL (0-450); Eosinophils Percent Auto 1.4 % (2-4); Hematocrit 39.5 % (36-46); Hemoglobin 13.8 g/dL (12.0-16.0); Lymphocytes Absolute Auto 1400 /uL (1100-4500); Mean Corpuscular Volume 94.3 fL (80-100); Monocytes Absolute Auto 300 /uL (0-900); Monocytes Percent Auto 7.9 % (3-14); Neutrophils Absolute Auto 2500 /uL (1500-7000); Neutrophils Percent Auto 56.5 % (50-75); Platelet Count 219 X10^3/uL (150-400); Red Blood Cell Count 4.18 X10^6/uL (4.0-5.2); Red Cell Distribution Width 12.9 % (11.6-14.8); White Blood Cell Count 4.4 X10^3/uL (4.5-11.0)
[2020-01-01 06:35] LABS: Alanine Aminotransferase 21 IU/L (<35); Albumin 4.6 g/dL (3.5-5.0); Albumin Globulin Ratio 1.6 (1.0-2.8); Alkaline Phosphatase 81 U/L (38-126); Aspartate Aminotransferase 29 IU/L (14-36); Bilirubin Total 0.8 mg/dL (0.2-1.3); Blood Urea Nitrogen 14 mg/dL (7-17); Calcium 9.6 mg/dL (8.4-10.2); Carbon Dioxide 27 mmol/L (22-32); Chloride 107 mmol/L (98-107); Creatine Kinase 86 U/L (30-135); Estimated Glomerular Filt Rate > 60.0 mL/min (>60); Globulin 2.9 g/dL (1.7-4.1); Glucose 107 mg/dL (80-110); HEMOLYSIS 17 (0-50); Lipase 58 U/L (23-300); Potassium 3.8 mmol/L (3.4-5.1); Sodium 141 mmol/L (137-145); Total Protein 7.5 g/dL (6.3-8.2)
[2020-01-01 06:47] LABS: Troponin I < 0.012 ng/mL (0.01-0.034)
--- NOTE | 2020-01-01 06:55 | DI.CT.S_ITS ---
PROCEDURE: CT CHEST WO CON INDICATIONS: fall with severe, sharp chest pain, possible rib fracture TECHNIQUE: Noncontrast 5 mm thick sections acquired from the pulmonary apices to the posterior costophrenic angles. 1 mm lung window, 5 mm thick coronal and sagittal and 7 mm axial MIP reformats were then acquired. For radiation dose reduction, the following was used: automated exposure control, adjustment of mA and/or kV according to patient size. COMPARISON: [facility], CR, XR RIBS LT MIN 3V W CXR1V, 01/01/2020, 6:18. [facility], , CHEST 1 VIEW, 12/26/2013, 10:48. FINDINGS: Image quality: Excellent. Lungs and pleura: Mild bibasilar streaky and groundglass opacity, most compatible with atelectasis or scarring. No mass or significant pulmonary nodule. Left apex calcified pleural plaque. Tiny cyst in the left upper lobe. No pleural effusions or pneumothorax. Central and peripheral airways are patent and normal in caliber. Mediastinum: Heart size is normal. No significant pericardial effusion. No mediastinal adenopathy by size criteria. Thoracic aorta and central pulmonary arteries are normal in size. Esophagus is normal in caliber. No hiatal hernia. Bones and chest wall: No suspicious bony lesions. No rib fracture identified. Note, the inferior ribs are incompletely visualized. Oval calcification adjacent to the left lateral 5th rib, unchanged. No vertebral body compression fractures. No axillary or supraclavicular adenopathy by size criteria. Axillary clips bilaterally. Thyroid gland demonstrates small thyroid nodules bilaterally. Coarse calcifications in the left thyroid lobe. Right mastectomy. Abdomen: Visualized upper abdominal solid organs and bowel loops appear normal in the absence of contrast. IMPRESSION: 1. No rib fracture demonstrated. Note: The most inferior ribs are not visualized. 2. Mild bibasilar atelectasis or scarring. Left apex calcified pleural plaque. 3. No pleural effusion. 4. Right mastectomy. No metastatic disease in the chest identified. 5. Bilateral thyroid nodules. -Further evaluation with dedicated thyroid ultrasound should be considered. No significant discrepancy with the overnight preliminary interpretation. Dictated by: Volodymyr Cuellar M.D. on 01/01/2020 at 7:56 Approved by: Volodymyr Cuellar M.D. on 01/01/2020 at 8:10
[2020-01-01] MEDS: LIDOCAINE PATCH 1 EACH ADH..PATCH TOP (07:23)
[2020-01-01 07:30] VITALS: BP 161/92; PULSE 58; RESP 17; O2SAT 97
[2020-01-01 08:00] VITALS: BP 160/80; PULSE 60; RESP 18; O2SAT 96
[2020-01-01 09:00] VITALS: BP 158/69; PULSE 61; RESP 18; O2SAT 98
== END 2020-01-01 09:10 | disposition home or self-care (01) ==
PROVIDERS: Emergency Medicine; Emergency Provider Emergency Medicine; PCP Internal Medicine
DX: R07.89 Other chest pain (principal); R07.81 Pleurodynia; W19.XXXA Unspecified fall, initial encounter
CPT/HCPCS: 36415; 71101; 71250; 80053; 82550; 83690; 84484; 85025; 93005; 99284

== ENCOUNTER → 2020-05-25 18:15 | Outpatient (ROUT) | payer MEDICARE, OTHER, SELFPAY ==
[2020-05-25 18:44] LABS: Hemoglobin A1C% w Est Avg Glu 5.2 % (4.0-6.0)
[2020-05-25 18:46] LABS: Aspartate Aminotransferase 28 IU/L (14-36); BUN Creatinine Ratio 36.2 (6-22); Blood Urea Nitrogen 17 mg/dL (7-17); Calcium 9.2 mg/dL (8.4-10.2); Carbon Dioxide 28 mmol/L (22-32); Chloride 107 mmol/L (98-107); Cholesterol 155 mg/dL (140-199); Estimated Glomerular Filt Rate > 60.0 mL/min (>60); Glucose 102 mg/dL (80-110); HDL Cholesterol 65 mg/dL (40-60); HEMOLYSIS < 15 (0-50); LDL Cholesterol Calculated 71 mg/dL (<100); Potassium 4.1 mmol/L (3.4-5.1); Sodium 139 mmol/L (137-145); Triglycerides 97 mg/dL (35-150)
[2020-05-25 19:17] LABS: TSH w/ Reflex to FT4 0.73 uIU/mL (0.47-4.68)
[2020-05-25 19:34] LABS: Vitamin B12 340 pg/mL (239-931)
[2020-05-28 14:18] LABS: Albumin 3.9 g/dL (2.9-4.4); Alpha-1-Globulin 0.1 g/dL (0.0-0.4); Alpha-2-Globulin 0.6 g/dL (0.4-1.0); Gamma Globulin 0.9 g/dL (0.4-1.8); Globulin Total 2.5 g/dL (2.2-3.9); Protein, Total 6.4 g/dL (6.0-8.5)
== END ==
PROVIDERS: PCP Internal Medicine; Visit Provider Internal Medicine
DX: E03.9 Hypothyroidism, unspecified (principal); D47.2 Monoclonal gammopathy; R73.01 Impaired fasting glucose; E53.8 Deficiency of other specified B group vitamins
CPT/HCPCS: 80048; 80061; 82607; 83036; 84155; 84165; 84443; 84450

== ENCOUNTER → 2021-12-27 07:18 | Outpatient (CLI) | payer MEDICARE, OTHER, SELFPAY ==
[2021-12-27 07:50] LABS: Hematocrit 36.3 % (36-46); Hemoglobin 12.7 g/dL (12.0-16.0); Mean Corpuscular HGB Conc 34.9 % (30-36); Mean Corpuscular Hemoglobin 32.5 PG (26-34); Mean Corpuscular Volume 93.2 fL (80-100); Platelet Count 192 X10^3/uL (150-400); Red Blood Cell Count 3.89 X10^6/uL (4.0-5.2); Red Cell Distribution Width 13.2 % (11.6-14.8); White Blood Cell Count 3.4 X10^3/uL (4.5-11.0)
[2021-12-27 08:09] LABS: Alanine Aminotransferase 18 IU/L (<35); Albumin 3.8 g/dL (3.5-5.0); Albumin Globulin Ratio 1.5 (1.0-2.8); Alkaline Phosphatase 60 U/L (38-126); Aspartate Aminotransferase 22 IU/L (14-36); BUN Creatinine Ratio 34.5 (6-22); Bilirubin Total 0.8 mg/dL (0.2-1.3); Blood Urea Nitrogen 20 mg/dL (7-17); Calcium 8.6 mg/dL (8.4-10.2); Carbon Dioxide 28 mmol/L (22-32); Chloride 111 mmol/L (98-107); Cholesterol 148 mg/dL (140-199); Estimated Glomerular Filt Rate > 60 mL/min (>60); Globulin 2.6 g/dL (1.7-4.1); Glucose 98 mg/dL (80-110); HDL Cholesterol 69 mg/dL (40-60); HEMOLYSIS < 15 (0-50); LDL Cholesterol Calculated 65 mg/dL (<100); Sodium 142 mmol/L (137-145); Total Protein 6.4 g/dL (6.3-8.2); Triglycerides 72 mg/dL (35-150)
[2021-12-27 08:10] LABS: Potassium 3.9 mmol/L (3.4-5.1)
[2021-12-27 08:26] LABS: Vitamin D 25 Hydroxy (D3) 47.4 ng/mL (30.0-100.0)
[2021-12-27 08:41] LABS: TSH w/ Reflex to FT4 0.44 uIU/mL (0.47-4.68)
[2021-12-27 08:58] LABS: Vitamin B12 322 pg/mL (239-931)
[2021-12-27 09:06] LABS: Free T4, Direct Thyroxine 1.24 ng/dL (0.78-2.19)
== END ==
PROVIDERS: PCP Internal Medicine; Referring Provider Internal Medicine; Visit Provider Internal Medicine
DX: E78.2 Mixed hyperlipidemia (principal); M81.0 Age-related osteoporosis without current pathological fracture; Z00.00 Encounter for general adult medical examination without abnormal findings; Z85.3 Personal history of malignant neoplasm of breast; E53.8 Deficiency of other specified B group vitamins
CPT/HCPCS: 36415; 80053; 80061; 82306; 82607; 84439; 84443; 85027

== ENCOUNTER → 2022-01-21 11:42 | Outpatient (CLI) | payer MEDICARE, OTHER, SELFPAY | PROVIDERS: PCP Internal Medicine; Referring Provider Internal Medicine; Visit Provider Internal Medicine | DX: M85.89 Other specified disorders of bone density and structure, multiple sites (principal); Z78.0 Asymptomatic menopausal state | CPT/HCPCS: 77080 ==

== ENCOUNTER → 2022-05-09 12:06 | Outpatient (CLI) | payer MEDICARE, OTHER, SELFPAY ==
[2022-05-09 13:14] LABS: TSH w/ Reflex to FT4 0.79 uIU/mL (0.47-4.68)
[2022-05-09 13:49] LABS: Folate 19.5 ng/mL (2.76-20.0); Vitamin B12 340 pg/mL (239-931)
[2022-05-11 13:42] LABS: Albumin 3.9 g/dL (2.9-4.4); Alpha-1-Globulin 0.1 g/dL (0.0-0.4); Alpha-2-Globulin 0.7 g/dL (0.4-1.0); Gamma Globulin 0.9 g/dL (0.4-1.8); Globulin Total 2.7 g/dL (2.2-3.9); Protein, Total 6.6 g/dL (6.0-8.5)
[2022-05-14 15:44] LABS: Methylmalonic Acid,Serum 128 nmol/L (0-378)
== END ==
PROVIDERS: PCP Internal Medicine; Referring Provider Internal Medicine; Visit Provider Internal Medicine
DX: G62.9 Polyneuropathy, unspecified (principal); E53.8 Deficiency of other specified B group vitamins; R77.9 Abnormality of plasma protein, unspecified
CPT/HCPCS: 36415; 82607; 82746; 83921; 84155; 84165; 84443

== ENCOUNTER → 2022-12-29 06:59 | Outpatient (CLI) | payer MEDICARE, SELFPAY ==
[2022-12-29 08:08] LABS: Aspartate Aminotransferase 22 IU/L (14-36); BUN Creatinine Ratio 25.5 (6-22); Blood Urea Nitrogen 14 mg/dL (7-17); Calcium 8.8 mg/dL (8.4-10.2); Carbon Dioxide 30 mmol/L (22-32); Chloride 105 mmol/L (98-107); Cholesterol 186 mg/dL (140-199); Estimated Glomerular Filt Rate > 60 mL/min (>60); Glucose 96 mg/dL (80-110); HDL Cholesterol 69 mg/dL (40-60); HEMOLYSIS < 15 (0-50); LDL Cholesterol Calculated 99 mg/dL (<100); Sodium 140 mmol/L (137-145); Triglycerides 91 mg/dL (35-150)
== END ==
PROVIDERS: PCP Internal Medicine; Referring Provider Internal Medicine; Visit Provider Internal Medicine
DX: E78.2 Mixed hyperlipidemia (principal); G60.9 Hereditary and idiopathic neuropathy, unspecified
CPT/HCPCS: 36415; 80048; 80061; 84450

== ENCOUNTER 2023-09-19 08:15 | Outpatient (RCR) | payer MEDICARE, SELFPAY ==
--- NOTE | 2023-02-24 17:13 | PT.OIE ---
Current Diagnoses Stiffness of unspecified hip, not elsewhere classified (02/24/23) Lower abdominal pain, unspecified (02/24/23) Fecal urgency (02/24/23) Unspecified urinary incontinence (02/24/23) Past Medical History (Last Updated 12/28/22 @ 10:45 by Gonzalo Rudolph MD) Age-related osteoporosis without current pathological fracture B12 deficiency Do not resuscitate Dyslipidemia Hearing loss (~2007) History of breast cancer History of colonic polyps History of urinary incontinence Idiopathic polyneuropathy Inflammatory breast cancer (~1989) Lymphedema of upper extremity, bilateral Mixed hyperlipidemia Osteopenia Plantar fasciitis, right Primary osteoarthritis involving multiple joints Urinary incontinence Past Surgical History (Last Reviewed 12/28/22 @ 02:04 by Gonzalo Rudolph MD) Anesthesia H/O bilateral mastectomy History of mastectomy Visit Care Team Role Provider Type Gonzalo Rudolph MD Attending Provider Physician Family Provider Primary Care Provider Referring Provider Specialty: Internal Medicine Address: [address] [place] [address] Email: [email or web address] Therapy Initial Evaluation PT-OP-A Visit Information Start: 02/16/23 18:07 Freq: Status: Active Protocol: Document 02/24/23 08:03 LRN (Rec: 02/24/23 11:16 LRN [id number]) Out-Patient Physical Therapy Visit Information Visit Information Visit Type Initial Evaluation Visit Start Time 08:03 Visit Stop Time 08:52 Total Visit Minutes 49 Visit Number 1 Evaluation Information Evaluation Date 02/24/23 Precautions Precautions 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 PT-OP-B Current Condition Start: 02/16/23 18:07 Freq: Status: Active Protocol: Document 02/24/23 08:03 LRN (Rec: 02/24/23 11:16 LRN [id number]) Current Condition History of Current Condition Onset Date 02/2022 Current Complaints Urge incontinence History of Current Condition Urinary urge incontinence that has worsened in past year. Urinary leaking after urge in sitting and leaks with transfers of various amounts. Prior Treatments and Tests Physical therapy for UI x 3, last was 3 yrs ago in [facility]. Was taught breathing that was helpful. Assessment by Urologist. Future Testing and Treatments Planned None Treatment Goals Patient/Caregiver Goals Pt goal is to: control urine leakage when at home to make it to bathroom without leaking in presence of a stong urge. Prior Functional Status Baseline Function- Other Urinary leakage daily. Current Functional Impairments (Reported) Functional Limitations- Other Urinary leakage, wears pads and changes 8-10x/day. Personal Factors Other Personal Factors That May Effect Double masectomy with Therapy/Recovery reconstruction of L breast, then R breast using stomach muscles to rebuild L breast (L breast is larger than the R), rebuild of abdomen at same time. PT-OP-C Subjective Start: 02/16/23 18:07 Freq: Status: Active Protocol: Document 02/24/23 08:03 LRN (Rec: 02/24/23 11:16 LRN [id number]) OP-PT Subjective Patient Comments Patient Comments States she hike 2x/week, and bikes with ebike (2-3x/week). Patient Questionnaires Pelvic Pain and Urgency/Frequency Patient Symptom Scale Pelvic Pain Score 6 PT-OP-I Pelvic Floor Start: 02/16/23 18:07 Freq: Status: Active Protocol: Document 02/24/23 08:03 LRN (Rec: 02/24/23 11:16 LRN [id number]) Pelvic Floor Assessment Urine Pelvic Floor Surgery No Urinary Symptoms Dribbling After Urination Other Urinary Symptoms Variable amounts of leakage throughout the day. Leakage Cause Urge Other Leakage Causes Occasionlly leaks with coughing, sneezing or laughing , hiking and biking. Leaks Per Day 8-10 Nocturia every other night gets up once . Pads Used In 24 Hours 8-10 Urine Pad Type Panty Liner,Maxi Pad,Depends Bowel Bowel Symptoms Fecal Leakage Bowel Movement Frequency 1-2/day Pelvic Clock Pelvic Clock Other Pelvic Clock 7-10: Tender Pelvic Clock 3-9: Redness Pelvic Clock 5: [place] red tissue small opening, w/o pain on palpation Prolapse Cystocele Grade 3 Rectocele Grade 3 Perineal Descent Resting Present Bearing Present Contraction Ability Voluntary Contraction Weak Manual Muscle Testing Left 2 Manual Muscle Testing Right 3 Manual Muscle Testing Anterior 0 Manual Muscle Testing Posterior 2 Muscle Endurance (Seconds) 3 Number of Quick Contractions In 10 1 Seconds Comments Pelvic Floor Comments Pt PF external tissues appear fragile and dry with very 1/2 cm long skin tear opening at 6 of PF clock. Pt bearing down noted with PF contraction. Posterior PF Anal [place] present , No clitoral nod. PT-OP-J Posture/Palpation/Skin Start: 02/16/23 18:07 Freq: Status: Active Protocol: Document 02/24/23 08:03 LRN (Rec: 02/24/23 11:16 LRN [id number]) Posture Evaluation Position Standing Head/C-Spine Posture Forward Head T-Spine Posture Flattened L-Spine Posture Increased Lordosis Shoulder Posture (R) Elevated Scapula Posture (R) Elevated Arm Posture (L) Internally Rotated,(R) Internally Rotated Pelvis Posture Anteriorly Tilted Weight Distribution Balanced Comments Posture Comments L breast low, straight spine. PT-OP-K Range of Motion Start: 02/16/23 18:07 Freq: Status: Active Protocol: Document 02/24/23 08:03 LRN (Rec: 02/24/23 11:16 LRN [id number]) Lumbar Spine Range of Motion Lumbar Spine Active Degrees Testing Position Standing Flexion 70 Extension 20 Rotation Left 45 Rotation Right 40 Lateral Flexion Left 13 Lateral Flexion Right 5 ROM Limitations Soft Tissue Tightness Comments Flexion is 70 deg?s with 60 deg?s hip flexion, Trunk extension is 20 deg?s with 15 deg?s hip extension. Hip Goniometric Range of Motion Hip Right Passive Testing Position Supine Internal Rotation 40 External Rotation 30 Left Passive Testing Position Supine Internal Rotation 20 External Rotation 50 PT-OP-M Strength Start: 02/16/23 18:07 Freq: Status: Active Protocol: Document 02/24/23 08:03 LRN (Rec: 02/24/23 11:16 LRN [id number]) Trunk Strength Trunk Manual Muscle Testing Core Stabilization mild loss of trunk rotation stability/strength with MMT of LE's Hip Strength Hip Manual Muscle Testing Right Extension (S1) 3+ Fair+ Comments Normal strength except as indicated above. Left Extension (S1) 3 Fair Comments Normal strength except as indicated above. PT-OP-Q Treatments Start: 02/16/23 18:07 Freq: Status: Active Protocol: Document 02/24/23 08:03 LRN (Rec: 02/24/23 11:16 LRN [id number]) Self-Care/Home Management Treatment Education Other Education Discussed results of evaluation, goals, and plan of care (POC). Pt agreeable to goals and POC. Pt educated in use of Bladder Diary and I/S in tracking for 1 week. Discussed use of 2 different diaries for tracking of bladder. Activities Self-Care/Home Management Activities Issued & reviewed HEP: Kegel ex's and briefly discussed exercise of Quick Flicks, Long Holds and Aggravators. Pt to follow directions of handout. PT-OP-T Assessment and Plan Start: 02/16/23 18:07 Freq: Status: Active Protocol: Document 02/24/23 08:03 LRN (Rec: 02/24/23 11:16 LRN [id number]) Physical Therapy Assessment Rehab Potential Rehabilitation Potential Good Evaluation Complexity Number of Personal Factors/Comorbidities 1-2 Number of Body Systems Impaired 4 or More Clinical Presentation at Evaluation Evolving Impairments Impairments Activity Tolerance,Posture,ROM ,Strength,Transfers Other Impairments Urinary leakage with strong urge, mostly in standing and with transfers. Goals Three Impairment Uses 8-10 urinary pads daily Short Term Goal (STG) Decrease use of urinary incontinence pads to 4-5/day STG Duration 04/16/23 Cocoa Press Operator Goal (LTG) Pt will improve PF strength with decrease in urinary leakage to use of urinary incontinence pads 2-3x/day. LTG Duration 05/25/23 Two Impairment Urge urinary incontinence Impairment Urinary leakage in presence of strong urge & after transfers sit<>stand Short Term Goal (STG) Pt will be educated in urinary delay technique and educated in normal voiding times and amounts and will modify behaviour to void on 1st or 2nd urinary urge. STG Duration 03/03/23 Cocoa Press Operator Goal (LTG) Pt will be able to control urine leakage when at home to make it to bathroom without leaking in presence of a stong urge. LTG Duration 05/25/23 One Impairment Lacks HEP to control urinary leakage with urge and bowel leakage. Short Term Goal (STG) Pt educated in proper transfers to lessen core abdominal pressure. STG Duration 03/10/23 Alf Goal (LTG) Pt will be independent in a self care HEP for PF/core (rot )/hip ext strengthening. LTG Duration 05/25/23 Assessment Summary Assessment Pt is an 82 yo female who presents with stress urinary incontinence, grade 3 cystocele & rectocele. She has PF weakness with strength of contraction and endurance holding (3 secs). Her external PF tissues appear fragile and dry and she has a very small area of what appears to be skin tear at 5 of the PF Clock. Her internal tissues also appear to have decrease in coloration and health. A topical extrogen cream to improve her PF tissue health would be recommendation if appropriate with her cancer history. The pt has questionable understanding of performing a proper PF contraction due to noted bulging down with contractions. Assessment of her anal sphincter strength was deferred due to time constraints and will be addressed at the next visit if pt is agreeable. She also has decreased core/hip ext strength. If the pt is not able to improve her PF strength enough to prevent fecal leakage, the pt would benefit from an evaluation by a GI specialist for alternative treatments. The pt will benefit from skilled physical therapy for core pressure management, PF strengthening, improve coordination of contractions, behavior modification in her bowel voiding to decrease her level of bowel incontinence and if needed, work to normalize bowel type and education on external support management (femme jock or V2 support). HEP/self care management, and manual therapy will be helpful to improve abdominal soft tissue mobility for bowel/bladder management. The pt's long history of urinary dysfunction and PF involvement may result in her therapy time being extended, in order to show improvement. Physical Therapy Plan Frequency and Duration Frequency of Treatment 1x/Week Duration of treatment (weeks) 12 Plan of Care Start Date 02/24/23 Plan of Care End Date 05/25/23 Therapeutic Interventions Therapeutic Interventions Home Exercise Program,Joint Mobilizations,Manual Therapy, Neuromuscular Re-education, Self-Care/Home Management,Soft Tissue Mobilization, Therapeutic Activities, Therapeutic Exercises Modalities Cold Pack/Ice Massage,Hot Packs Next Visit Focus/Plan Next Note Type Treatment Note Next Visit Plan Pt will be absent for 30 days of her POC period due to being out of state; therefore her POC may need extension in the future. Review bladder diary and discuss fluid management, discuss stool types, food types, and water intake. Pt education: in vulvar/ genital care, proper deep breathing, proper body mechanics, and training in proper Kegel without use of substitute muscles and proper coordination of core pressure management with PF contractions. EX: PF/core(rot)/hip strengthening (extension), improve hip mobility (R ER, L IR), Manual: soft tissue (bladder) mobility.
--- NOTE | 2023-03-10 09:24 | PT.OTN ---
Current Diagnoses Stiffness of unspecified hip, not elsewhere classified (03/10/23) Lower abdominal pain, unspecified (03/10/23) Fecal urgency (03/10/23) Unspecified urinary incontinence (03/10/23) Physical Therapy Treatment Note PT-OP-A Visit Information Start: 02/16/23 18:07 Freq: Status: Active Protocol: Document 03/10/23 08:02 LRN (Rec: 03/10/23 09:23 LRN [id number]) Out-Patient Physical Therapy Visit Information Visit Information Visit Type Treatment Note Visit Start Time 08:02 Visit Stop Time 08:48 Total Visit Minutes 46 Visit Number 2 Evaluation Information Evaluation Date 02/24/23 Precautions Precautions 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 PT-OP-B Current Condition Start: 02/16/23 18:07 Freq: Status: Active Protocol: Document 02/24/23 08:03 LRN (Rec: 02/24/23 11:16 LRN [id number]) Current Condition History of Current Condition Onset Date 02/2022 Current Complaints Urge incontinence History of Current Condition Urinary urge incontinence that has worsened in past year. Urinary leaking after urge in sitting and leaks with transfers of various amounts. Prior Treatments and Tests Physical therapy for UI x 3, last was 3 yrs ago in [facility]. Was taught breathing that was helpful. Assessment by Urologist. Future Testing and Treatments Planned None Treatment Goals Patient/Caregiver Goals Pt goal is to: control urine leakage when at home to make it to bathroom without leaking in presence of a stong urge. Prior Functional Status Baseline Function- Other Urinary leakage daily. Current Functional Impairments (Reported) Functional Limitations- Other Urinary leakage, wears pads and changes 8-10x/day. Personal Factors Other Personal Factors That May Effect Double masectomy with Therapy/Recovery reconstruction of L breast, then R breast using stomach muscles to rebuild L breast (L breast is larger than the R), rebuild of abdomen at same time. PT-OP-C Subjective Start: 02/16/23 18:07 Freq: Status: Active Protocol: Document 03/10/23 08:02 LRN (Rec: 03/10/23 09:23 LRN [id number]) OP-PT Subjective Patient Comments Patient Comments Was not able to do the bladder diary because she was on a vacation trip and is overwhelmed by the bladder diary. Leaving for [facility] on 03/24/23 and getting back on 04/15/23 and then gone for another week in [place]. PT-OP-I Pelvic Floor Start: 02/16/23 18:07 Freq: Status: Active Protocol: Document 02/24/23 08:03 LRN (Rec: 02/24/23 11:16 LRN [id number]) Pelvic Floor Assessment Urine Pelvic Floor Surgery No Urinary Symptoms Dribbling After Urination Other Urinary Symptoms Variable amounts of leakage throughout the day. Leakage Cause Urge Other Leakage Causes Occasionlly leaks with coughing, sneezing or laughing , hiking and biking. Leaks Per Day 8-10 Nocturia every other night gets up once . Pads Used In 24 Hours 8-10 Urine Pad Type Panty Liner,Maxi Pad,Depends Bowel Bowel Symptoms Fecal Leakage Bowel Movement Frequency 1-2/day Pelvic Clock Pelvic Clock Other Pelvic Clock 7-10: Tender Pelvic Clock 3-9: Redness Pelvic Clock 5: [place] red tissue small opening, w/o pain on palpation Prolapse Cystocele Grade 3 Rectocele Grade 3 Perineal Descent Resting Present Bearing Present Contraction Ability Voluntary Contraction Weak Manual Muscle Testing Left 2 Manual Muscle Testing Right 3 Manual Muscle Testing Anterior 0 Manual Muscle Testing Posterior 2 Muscle Endurance (Seconds) 3 Number of Quick Contractions In 10 1 Seconds Comments Pelvic Floor Comments Pt PF external tissues appear fragile and dry with very 1/2 cm long skin tear opening at 6 of PF clock. Pt bearing down noted with PF contraction. Posterior PF Anal [place] present , No clitoral nod. PT-OP-J Posture/Palpation/Skin Start: 02/16/23 18:07 Freq: Status: Active Protocol: Document 02/24/23 08:03 LRN (Rec: 02/24/23 11:16 LRN [id number]) Posture Evaluation Position Standing Head/C-Spine Posture Forward Head T-Spine Posture Flattened L-Spine Posture Increased Lordosis Shoulder Posture (R) Elevated Scapula Posture (R) Elevated Arm Posture (L) Internally Rotated,(R) Internally Rotated Pelvis Posture Anteriorly Tilted Weight Distribution Balanced Comments Posture Comments L breast low, straight spine. PT-OP-K Range of Motion Start: 02/16/23 18:07 Freq: Status: Active Protocol: Document 02/24/23 08:03 LRN (Rec: 02/24/23 11:16 LRN [id number]) Lumbar Spine Range of Motion Lumbar Spine Active Degrees Testing Position Standing Flexion 70 Extension 20 Rotation Left 45 Rotation Right 40 Lateral Flexion Left 13 Lateral Flexion Right 5 ROM Limitations Soft Tissue Tightness Comments Flexion is 70 deg?s with 60 deg?s hip flexion, Trunk extension is 20 deg?s with 15 deg?s hip extension. Hip Goniometric Range of Motion Hip Right Passive Testing Position Supine Internal Rotation 40 External Rotation 30 Left Passive Testing Position Supine Internal Rotation 20 External Rotation 50 PT-OP-M Strength Start: 02/16/23 18:07 Freq: Status: Active Protocol: Document 02/24/23 08:03 LRN (Rec: 02/24/23 11:16 LRN [id number]) Trunk Strength Trunk Manual Muscle Testing Core Stabilization mild loss of trunk rotation stability/strength with MMT of LE's Hip Strength Hip Manual Muscle Testing Right Extension (S1) 3+ Fair+ Comments Normal strength except as indicated above. Left Extension (S1) 3 Fair Comments Normal strength except as indicated above. PT-OP-Q Treatments Start: 02/16/23 18:07 Freq: Status: Active Protocol: Document 03/10/23 08:02 LRN (Rec: 03/10/23 09:23 LRN [id number]) Therapeutic Exercises Supine Exercises PF w/Bridge Supine Exercise Name PF w/Bridge Reps/Minutes 5x Comments Much cuing and phys cuing needed PF w/balls squeeze Supine Exercise Name PF w/balls squeeze Reps/Minutes 10x Comments Much cuing and phys cuing needed Deep Breathing Supine Exercise Name Proper deep breathing Reps/Minutes 2' PF Long Hold contactions Supine Exercise Name PF Long Hold contactions Equipment Used Pillow under hips Reps/Minutes 11' (5 kegels) Comments Cuing to isolate PF & BKFO x 10 + 3 breaths btn contractions PF Quick Contractions Supine Exercise Name PF Quick Contractions in isolation of sub ms. Reps/Minutes 3' (10X 2) Comments Cuing for relaxation btn contractions Other Exercises Transfers w/coordinated breathing Other Exercise Name Transfers coordinating breath for core pressure management Reps/Minutes 8' Comments Phys & v cuing throughout transfers, and repeated transfers. Self-Care/Home Management Treatment Education Other Education Bladder retraining education. Discussed and educated pt in purpose of the bladder diary and possible reaslons for different conditions and discussed her different methods of voiding incidents and reasons for what is happening. Dscussed use of estrogen cream and reason for it. Activities Self-Care/Home Management Activities Issued & reviewed HEP: Kegels w/written I/S for for 1 ) isolated, 2) contraction w/ ball squeeze, 3) contraction w /bridge; and I/S for rest period activity of [place] BKFO & Deep breathing x 1-2. Issued & reviewed handout for Bladder retraining. PT-OP-T Assessment and Plan Start: 02/16/23 18:07 Freq: Status: Active Protocol: Document 03/10/23 08:02 LRN (Rec: 03/10/23 09:23 LRN [id number]) Physical Therapy Assessment Goals Three Impairment Uses 8-10 urinary pads daily Short Term Goal (STG) Decrease use of urinary incontinence pads to 4-5/day STG Duration 04/16/23 Field Support Specialist Goal (LTG) Pt will improve PF strength with decrease in urinary leakage to use of urinary incontinence pads 2-3x/day. LTG Duration 05/25/23 Two Impairment Urge urinary incontinence Impairment Urinary leakage in presence of strong urge & after transfers sit<>stand Short Term Goal (STG) Pt will be educated in urinary delay technique and educated in normal voiding times and amounts and will modify behaviour to void on 1st or 2nd urinary urge. 03/10/23: Pt educated in urinary delay technique. STG Duration 03/03/23 progressed 03/10/23 Field Support Specialist Goal (LTG) Pt will be able to control urine leakage when at home to make it to bathroom without leaking in presence of a stong urge. LTG Duration 05/25/23 One Impairment Lacks HEP to control urinary leakage with urge and bowel leakage. Short Term Goal (STG) Pt educated in proper transfers to lessen core abdominal pressure. 03/10/23: Pt educated in proper transfer stand<>sit<> supine with core pressure management. STG Duration 03/10/23 (03/10/23: MET GOAL ) Field Support Specialist Goal (LTG) Pt will be independent in a self care HEP for PF/core (rot )/hip ext strengthening. LTG Duration 05/25/23 Assessment Summary Assessment 82 yo female with stress urinary incontinence, grade 3 cystocele & rectocele. Pt requires extra time with training and repetitious learning. She does better when educated for reasons for recommendations and exercise. Pt needs further transfer training and breathing review for proper deep breathing. Her breaths are nice and slow, but started as chest breathing but with education was able to abdominal breath with concentration. Physical Therapy Plan Frequency and Duration Frequency of Treatment 1x/Week Duration of treatment (weeks) 12 Plan of Care Start Date 02/24/23 Plan of Care End Date 05/25/23 Next Visit Focus/Plan Next Note Type Treatment Note Next Visit Plan Plan: 2 visits, then after 30 days (pt in [place]) 1 visit before leaving country for 1 week, then return for rehab. An extension in her POC then will be needed due to her not able to attend often before end of POC. Next: Review bladder diary and discuss fluid management, discuss stool types, food types, and water intake. Review: Bladder retraining & proper coordination of core pressure management with PF contractions. If time, review previously issued HEP. Pt education: Vulvar/genital care, proper body mechanics EX: PF/core(rot)/hip strengthening (extension), improve hip mobility (R ER, L IR), Manual: soft tissue (bladder) mobility.
--- NOTE | 2023-05-12 10:27 | PT.OTN ---
Current Diagnoses Stiffness of unspecified hip, not elsewhere classified (05/12/23) Lower abdominal pain, unspecified (05/12/23) Fecal urgency (05/12/23) Unspecified urinary incontinence (05/12/23) Physical Therapy Treatment Note PT-OP-A Visit Information Start: 02/16/23 18:07 Freq: Status: Active Protocol: Document 05/12/23 08:00 LRN (Rec: 05/12/23 08:50 LRN [id number]) Out-Patient Physical Therapy Visit Information Visit Information Visit Type Progress Note Visit Start Time 08:00 Visit Stop Time 08:41 Total Visit Minutes 41 Visit Number 2 Evaluation Information Evaluation Date 02/24/23 Precautions Precautions 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 PT-OP-B Current Condition Start: 02/16/23 18:07 Freq: Status: Active Protocol: Document 02/24/23 08:03 LRN (Rec: 02/24/23 11:16 LRN [id number]) Current Condition History of Current Condition Onset Date 02/2022 Current Complaints Urge incontinence History of Current Condition Urinary urge incontinence that has worsened in past year. Urinary leaking after urge in sitting and leaks with transfers of various amounts. Prior Treatments and Tests Physical therapy for UI x 3, last was 3 yrs ago in [place] [facility]. Was taught breathing that was helpful. Assessment by Urologist. Future Testing and Treatments Planned None Treatment Goals Patient/Caregiver Goals Pt goal is to: control urine leakage when at home to make it to bathroom without leaking in presence of a stong urge. Prior Functional Status Baseline Function- Other Urinary leakage daily. Current Functional Impairments (Reported) Functional Limitations- Other Urinary leakage, wears pads and changes 8-10x/day. Personal Factors Other Personal Factors That May Effect Double masectomy with Therapy/Recovery reconstruction of L breast, then R breast using stomach muscles to rebuild L breast (L breast is larger than the R), rebuild of abdomen at same time. PT-OP-C Subjective Start: 02/16/23 18:07 Freq: Status: Active Protocol: Document 05/12/23 08:00 LRN (Rec: 05/12/23 08:50 LRN [id number]) OP-PT Subjective Patient Comments Patient Comments States she came back from [place], was doing the [place] ex's and didn't leak at all. Since returning has leaked. Has been eliminating stool when gettin gthe urge. If she has to use the bathroom she walks and almost gets to the toilet. Noticed she doesn't sit on toilet long enough. Nighttime, sometimes 1-2x/ night and sometimes not at all . 2x in [place] and 1x in [place] had total loss of bladder control. Decreasing her decaf coffee and wine intake. Trying to decr her 1-2 glasses of wine at night. Bowel types typically 2 or 3. Patient Questionnaires Pelvic Pain and Urgency/Frequency Patient Symptom Scale Pelvic Pain Score 10 PT-OP-I Pelvic Floor Start: 02/16/23 18:07 Freq: Status: Active Protocol: Document 02/24/23 08:03 LRN (Rec: 02/24/23 11:16 LRN [id number]) Pelvic Floor Assessment Urine Pelvic Floor Surgery No Urinary Symptoms Dribbling After Urination Other Urinary Symptoms Variable amounts of leakage throughout the day. Leakage Cause Urge Other Leakage Causes Occasionlly leaks with coughing, sneezing or laughing , hiking and biking. Leaks Per Day 8-10 Nocturia every other night gets up once . Pads Used In 24 Hours 8-10 Urine Pad Type Panty Liner,Maxi Pad,Depends Bowel Bowel Symptoms Fecal Leakage Bowel Movement Frequency 1-2/day Pelvic Clock Pelvic Clock Other Pelvic Clock 7-10: Tender Pelvic Clock 3-9: Redness Pelvic Clock 5: [place] red tissue small opening, w/o pain on palpation Prolapse Cystocele Grade 3 Rectocele Grade 3 Perineal Descent Resting Present Bearing Present Contraction Ability Voluntary Contraction Weak Manual Muscle Testing Left 2 Manual Muscle Testing Right 3 Manual Muscle Testing Anterior 0 Manual Muscle Testing Posterior 2 Muscle Endurance (Seconds) 3 Number of Quick Contractions In 10 1 Seconds Comments Pelvic Floor Comments Pt PF external tissues appear fragile and dry with very 1/2 cm long skin tear opening at 6 of PF clock. Pt bearing down noted with PF contraction. Posterior PF Anal [place] present , No clitoral nod. PT-OP-J Posture/Palpation/Skin Start: 02/16/23 18:07 Freq: Status: Active Protocol: Document 02/24/23 08:03 LRN (Rec: 02/24/23 11:16 LRN [id number]) Posture Evaluation Position Standing Head/C-Spine Posture Forward Head T-Spine Posture Flattened L-Spine Posture Increased Lordosis Shoulder Posture (R) Elevated Scapula Posture (R) Elevated Arm Posture (L) Internally Rotated,(R) Internally Rotated Pelvis Posture Anteriorly Tilted Weight Distribution Balanced Comments Posture Comments L breast low, straight spine. PT-OP-K Range of Motion Start: 02/16/23 18:07 Freq: Status: Active Protocol: Document 02/24/23 08:03 LRN (Rec: 02/24/23 11:16 LRN [id number]) Lumbar Spine Range of Motion Lumbar Spine Active Degrees Testing Position Standing Flexion 70 Extension 20 Rotation Left 45 Rotation Right 40 Lateral Flexion Left 13 Lateral Flexion Right 5 ROM Limitations Soft Tissue Tightness Comments Flexion is 70 deg?s with 60 deg?s hip flexion, Trunk extension is 20 deg?s with 15 deg?s hip extension. Hip Goniometric Range of Motion Hip Right Passive Testing Position Supine Internal Rotation 40 External Rotation 30 Left Passive Testing Position Supine Internal Rotation 20 External Rotation 50 PT-OP-M Strength Start: 02/16/23 18:07 Freq: Status: Active Protocol: Document 02/24/23 08:03 LRN (Rec: 02/24/23 11:16 LRN [id number]) Trunk Strength Trunk Manual Muscle Testing Core Stabilization mild loss of trunk rotation stability/strength with MMT of LE's Hip Strength Hip Manual Muscle Testing Right Extension (S1) 3+ Fair+ Comments Normal strength except as indicated above. Left Extension (S1) 3 Fair Comments Normal strength except as indicated above. PT-OP-Q Treatments Start: 02/16/23 18:07 Freq: Status: Active Protocol: Document 05/12/23 08:00 LRN (Rec: 05/12/23 08:50 LRN [id number]) Therapeutic Exercises Supine Exercises PF w/balls squeeze Supine Exercise Name PF w/balls squeeze Reps/Minutes 10 SH x 10 Comments Much cuing and phys cuing needed Deep Breathing Supine Exercise Name deep breathing Equipment Used Self awareness with pt hands on chest & abdomen Reps/Minutes 6' Comments Much cuing for keeping chest still. PF Long Hold contactions Supine Exercise Name PF contraction strengthening Equipment Used Wedge & bolster Reps/Minutes 10 SH x 10 PF Quick Contractions Supine Exercise Name PF contraction strengthening Equipment Used Wedge & bolster Reps/Minutes 1 SH x 10 Self-Care/Home Management Treatment Education Other Education Discussed frequency of voiding and plan for bladder retraining. Pt educated in normal voiding time and discussed modification of her behavior to void on the 1st or 2nd urge to prevent urinary leakage. Reviewed pt fluid intake types and discussed possible reasons for nighttime leakage, including [place] liliam as bladder irritants vs [place] liliam. Discussed POC and goals, pt agreeable. Discussed bowel types and sequencing of types ( constipation followed by loose stool). PT-OP-T Assessment and Plan Start: 02/16/23 18:07 Freq: Status: Active Protocol: Document 05/12/23 08:00 LRN (Rec: 05/12/23 08:50 LRN [id number]) Physical Therapy Assessment Goals Three Impairment Uses 8-10 urinary pads daily Short Term Goal (STG) Decrease use of urinary incontinence pads to 4-5/day 05/12/23: Using 4 pads daily STG Duration 04/16/23 (05/12/23: MET GOAL ) Quality Assurance Qa Lab Technician Goal (LTG) Pt will improve PF strength with decrease in urinary leakage to use of urinary incontinence pads 1-2x/day. 05/12/23: Using 4 pads daily LTG Duration 05/25/23 Two Impairment Urge urinary incontinence Impairment Urinary leakage in presence of strong urge & after transfers sit<>stand. Short Term Goal (STG) Pt will be educated in urinary delay technique and educated in normal voiding times and amounts and will modify behaviour to void on 1st or 2nd urinary urge. 03/10/23: Pt educated in urinary delay technique. 05/12/23: Pt educated in normal voiding time and has modified her behavious to void on the 1st or 2nd urge, except she sometimes forgets in a social gathering situation. STG Duration 03/03/23 (05/12/23: MET GOAL) Quality Assurance Qa Lab Technician Goal (LTG) Pt will be able to control urine leakage when at home to make it to bathroom without leaking in presence of a stong urge. Voiding time every 2- 3 hrs. 05/12/23: 8% of the time can make it to the bathroom. LTG Duration 05/25/23 slow progress One Impairment Lacks HEP to control urinary leakage with urge and bowel leakage. Short Term Goal (STG) Pt educated in proper transfers to lessen core abdominal pressure. 03/10/23: Pt educated in proper transfer stand<>sit<> supine with core pressure management. STG Duration 03/10/23 (03/10/23: MET GOAL ) Quality Assurance Qa Lab Technician Goal (LTG) Pt will be independent in a self care HEP for PF/core (rot )/hip ext strengthening. LTG Duration 05/25/23 Assessment Summary Assessment 82 yo female with stress urinary incontinence, grade 3 cystocele & rectocele. Pt has been in [facility] and was seen for one treatment visit over the past 12 weeks. She returns with reports of less urinary leakage while on vacation, but upon return the leakage returned, although a little less. She has shown some improvement in urinary incontinence, but would benefit from basically starting her rehab program now that she has returned to the [facility] She appears to be dealing with slight constipation that is probably affecting her urinary voiding. I recommend continuation of therapy to work towards achieving the above stated goals. Physical Therapy Plan Frequency and Duration Frequency of Treatment 1x/Week Duration of treatment (weeks) 12 Plan of Care Start Date 05/12/23 Plan of Care End Date 08/12/23 Next Visit Focus/Plan Next Note Type Treatment Note Next Visit Plan Next: Review bladder diary and discuss fluid management, discuss stool types, food types, and water intake. Issue bladder diary if she no longer has handouts. Review: Bladder retraining & proper coordination of core pressure management with PF contractions. . EMG biofeedback. Pt education: Vulvar/genital care, proper body mechanics EX: PF/core(rot)/hip strengthening (extension), improve hip mobility (R ER, L IR), Manual: soft tissue (bladder) mobility.
--- NOTE | 2023-05-12 10:29 | PT.OPPOC ---
Physical, Occupational & Speech Therapy At [facility] Current Diagnoses Stiffness of unspecified hip, not elsewhere classified (05/12/23) Lower abdominal pain, unspecified (05/12/23) Fecal urgency (05/12/23) Unspecified urinary incontinence (05/12/23) Visit Care Team Role Provider Type Gonzalo Rudolph MD Attending Provider Physician Family Provider Primary Care Provider Referring Provider Specialty: Internal Medicine Address: [address] [place] [address], [facility] Email: [email or web address] Plan Of Care PT-OP-T Assessment and Plan Start: 02/16/23 18:07 Freq: Status: Active Protocol: Document 05/12/23 08:00 LRN (Rec: 05/12/23 08:50 LRN [id number]) Physical Therapy Assessment Goals Three Impairment Uses 8-10 urinary pads daily Short Term Goal (STG) Decrease use of urinary incontinence pads to 4-5/day 05/12/23: Using 4 pads daily STG Duration 04/16/23 (05/12/23: MET GOAL ) Prison Goal (LTG) Pt will improve PF strength with decrease in urinary leakage to use of urinary incontinence pads 1-2x/day. 05/12/23: Using 4 pads daily LTG Duration 12 wks-08/12/23 Two Impairment Urge urinary incontinence Impairment Urinary leakage in presence of strong urge & after transfers sit<>stand. Short Term Goal (STG) Pt will be educated in urinary delay technique and educated in normal voiding times and amounts and will modify behaviour to void on 1st or 2nd urinary urge. 03/10/23: Pt educated in urinary delay technique. 05/12/23: Pt educated in normal voiding time and has modified her behavious to void on the 1st or 2nd urge, except she sometimes forgets in a social gathering situation. STG Duration 03/03/23 (05/12/23: MET GOAL) School Librarian Goal (LTG) Pt will be able to control urine leakage when at home to make it to bathroom without leaking in presence of a stong urge. Voiding time every 2- 3 hrs. 05/12/23: 8% of the time can make it to the bathroom. LTG Duration 12 wks-08/12/23 slow progress 05/12/23 One Impairment Lacks HEP to control urinary leakage with urge and bowel leakage. Short Term Goal (STG) Pt educated in proper transfers to lessen core abdominal pressure. 03/10/23: Pt educated in proper transfer stand<>sit<> supine with core pressure management. STG Duration 03/10/23 (03/10/23: MET GOAL ) Prison Goal (LTG) Pt will be independent in a self care HEP for PF/core (rot )/hip ext strengthening. LTG Duration 12 wks-08/12/23 Assessment Summary Assessment 82 yo female with stress urinary incontinence, grade 3 cystocele & rectocele. Pt has been in [facility] and was seen for one treatment visit over the past 12 weeks. She returns with reports of less urinary leakage while on vacation, but upon return the leakage returned, although a little less. She has shown some improvement in urinary incontinence, but would benefit from basically starting her rehab program now that [facility]. She appears to be dealing with slight constipation that is probably affecting her urinary voiding. I recommend continuation of therapy to work towards achieving the above stated goals. Physical Therapy Plan Frequency and Duration Frequency of Treatment 1x/Week Duration of treatment (weeks) 12 Plan of Care Start Date 05/12/23 Plan of Care End Date 08/12/23 Next Visit Focus/Plan Next Note Type Treatment Note Next Visit Plan Next: Review bladder diary and discuss fluid management, discuss stool types, food types, and water intake. Issue bladder diary if she no longer has handouts. Review: Bladder retraining & proper coordination of core pressure management with PF contractions. . EMG biofeedback. Pt education: Vulvar/genital care, proper body mechanics EX: PF/core(rot)/hip strengthening (extension), improve hip mobility (R ER, L IR), Manual: soft tissue (bladder) mobility. Plan of Care Dates Plan of Care Start Date 05/12/23 Plan of Care End Date 08/12/23 Electronically Signed by: Leonarda Haque, PT 05/12/23 0053 If you are in agreement with this Plan of Care, please return a signed and dated copy. I have reviewed this Plan of Care and certify that the skilled therapy services above are required to meet the patient?s needs. Physician Signature Date Printed Name and Credentials Clinical Instructor Signature Printed Name and Credentials
--- NOTE | 2023-05-19 16:57 | PT.OTN ---
Current Diagnoses Stiffness of unspecified hip, not elsewhere classified (05/19/23) Lower abdominal pain, unspecified (05/19/23) Fecal urgency (05/19/23) Unspecified urinary incontinence (05/19/23) Physical Therapy Treatment Note PT-OP-A Visit Information Start: 02/16/23 18:07 Freq: Status: Active Protocol: Document 05/19/23 08:00 LRN (Rec: 05/19/23 08:48 LRN [id number]) Out-Patient Physical Therapy Visit Information Visit Information Visit Type Treatment Note Visit Start Time 08:00 Visit Stop Time 08:38 Total Visit Minutes 40 Visit Number 3 Evaluation Information Evaluation Date 02/24/23 Precautions Precautions 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 PT-OP-B Current Condition Start: 02/16/23 18:07 Freq: Status: Active Protocol: Document 02/24/23 08:03 LRN (Rec: 02/24/23 11:16 LRN [id number]) Current Condition History of Current Condition Onset Date 02/2022 Current Complaints Urge incontinence History of Current Condition Urinary urge incontinence that has worsened in past year. Urinary leaking after urge in sitting and leaks with transfers of various amounts. Prior Treatments and Tests Physical therapy for UI x 3, last was 3 yrs ago in [place] [facility]. Was taught breathing that was helpful. Assessment by Urologist. Future Testing and Treatments Planned None Treatment Goals Patient/Caregiver Goals Pt goal is to: control urine leakage when at home to make it to bathroom without leaking in presence of a stong urge. Prior Functional Status Baseline Function- Other Urinary leakage daily. Current Functional Impairments (Reported) Functional Limitations- Other Urinary leakage, wears pads and changes 8-10x/day. Personal Factors Other Personal Factors That May Effect Double masectomy with Therapy/Recovery reconstruction of L breast, then R breast using stomach muscles to rebuild L breast (L breast is larger than the R), rebuild of abdomen at same time. PT-OP-C Subjective Start: 02/16/23 18:07 Freq: Status: Active Protocol: Document 05/19/23 08:00 LRN (Rec: 05/19/23 08:48 LRN [id number]) OP-PT Subjective Patient Comments Patient Comments Does not have the bladder diary. Has practiced the deep breathing. PT-OP-I Pelvic Floor Start: 02/16/23 18:07 Freq: Status: Active Protocol: Document 02/24/23 08:03 LRN (Rec: 02/24/23 11:16 LRN [id number]) Pelvic Floor Assessment Urine Pelvic Floor Surgery No Urinary Symptoms Dribbling After Urination Other Urinary Symptoms Variable amounts of leakage throughout the day. Leakage Cause Urge Other Leakage Causes Occasionlly leaks with coughing, sneezing or laughing , hiking and biking. Leaks Per Day 8-10 Nocturia every other night gets up once . Pads Used In 24 Hours 8-10 Urine Pad Type Panty Liner,Maxi Pad,Depends Bowel Bowel Symptoms Fecal Leakage Bowel Movement Frequency 1-2/day Pelvic Clock Pelvic Clock Other Pelvic Clock 7-10: Tender Pelvic Clock 3-9: Redness Pelvic Clock 5: [place] red tissue small opening, w/o pain on palpation Prolapse Cystocele Grade 3 Rectocele Grade 3 Perineal Descent Resting Present Bearing Present Contraction Ability Voluntary Contraction Weak Manual Muscle Testing Left 2 Manual Muscle Testing Right 3 Manual Muscle Testing Anterior 0 Manual Muscle Testing Posterior 2 Muscle Endurance (Seconds) 3 Number of Quick Contractions In 10 1 Seconds Comments Pelvic Floor Comments Pt PF external tissues appear fragile and dry with very 1/2 cm long skin tear opening at 6 of PF clock. Pt bearing down noted with PF contraction. Posterior PF Anal [place] present , No clitoral nod. PT-OP-J Posture/Palpation/Skin Start: 02/16/23 18:07 Freq: Status: Active Protocol: Document 02/24/23 08:03 LRN (Rec: 02/24/23 11:16 LRN [id number]) Posture Evaluation Position Standing Head/C-Spine Posture Forward Head T-Spine Posture Flattened L-Spine Posture Increased Lordosis Shoulder Posture (R) Elevated Scapula Posture (R) Elevated Arm Posture (L) Internally Rotated,(R) Internally Rotated Pelvis Posture Anteriorly Tilted Weight Distribution Balanced Comments Posture Comments L breast low, straight spine. PT-OP-K Range of Motion Start: 02/16/23 18:07 Freq: Status: Active Protocol: Document 02/24/23 08:03 LRN (Rec: 02/24/23 11:16 LRN [id number]) Lumbar Spine Range of Motion Lumbar Spine Active Degrees Testing Position Standing Flexion 70 Extension 20 Rotation Left 45 Rotation Right 40 Lateral Flexion Left 13 Lateral Flexion Right 5 ROM Limitations Soft Tissue Tightness Comments Flexion is 70 deg?s with 60 deg?s hip flexion, Trunk extension is 20 deg?s with 15 deg?s hip extension. Hip Goniometric Range of Motion Hip Right Passive Testing Position Supine Internal Rotation 40 External Rotation 30 Left Passive Testing Position Supine Internal Rotation 20 External Rotation 50 PT-OP-M Strength Start: 02/16/23 18:07 Freq: Status: Active Protocol: Document 02/24/23 08:03 LRN (Rec: 02/24/23 11:16 LRN [id number]) Trunk Strength Trunk Manual Muscle Testing Core Stabilization mild loss of trunk rotation stability/strength with MMT of LE's Hip Strength Hip Manual Muscle Testing Right Extension (S1) 3+ Fair+ Comments Normal strength except as indicated above. Left Extension (S1) 3 Fair Comments Normal strength except as indicated above. PT-OP-Q Treatments Start: 02/16/23 18:07 Freq: Status: Active Protocol: Document 05/19/23 08:00 LRN (Rec: 05/19/23 08:48 LRN [id number]) Therapeutic Exercises Supine Exercises LE Roll in/outs Supine Exercise Name LE Roll in/outs w/Deep breathing Reps/Minutes 20' Comments Much v cuing & repetition of training for breath & LE mvmt Deep Breathing Supine Exercise Name deep breathing Equipment Used Self awareness with pt hands on chest & abdomen Reps/Minutes 6' Comments Much cuing for keeping chest still. Other Exercises Transfers w/coordinated breathing Other Exercise Name Transfers coordinating breath for core pressure management Reps/Minutes 8' Comments Phys & v cuing throughout transfers, and repeated transfers. Self-Care/Home Management Treatment Activities Self-Care/Home Management Activities Issued & reviewed handouts for deep breathing (sit & supine) and coordination of transfers with breath. PT-OP-T Assessment and Plan Start: 02/16/23 18:07 Freq: Status: Active Protocol: Document 05/19/23 08:00 LRN (Rec: 05/19/23 08:48 LRN [id number]) Physical Therapy Assessment Goals Three Impairment Uses 8-10 urinary pads daily Short Term Goal (STG) Decrease use of urinary incontinence pads to 4-5/day 05/12/23: Using 4 pads daily STG Duration 04/16/23 (05/12/23: MET GOAL ) Senior Care Goal (LTG) Pt will improve PF strength with decrease in urinary leakage to use of urinary incontinence pads 1-2x/day. 05/12/23: Using 4 pads daily LTG Duration 12 wks-08/12/23 Two Impairment Urge urinary incontinence Impairment Urinary leakage in presence of strong urge & after transfers sit<>stand. Short Term Goal (STG) Pt will be educated in urinary delay technique and educated in normal voiding times and amounts and will modify behaviour to void on 1st or 2nd urinary urge. 03/10/23: Pt educated in urinary delay technique. 05/12/23: Pt educated in normal voiding time and has modified her behavious to void on the 1st or 2nd urge, except she sometimes forgets in a social gathering situation. STG Duration 03/03/23 (05/12/23: MET GOAL) Sql Bi Developer Goal (LTG) Pt will be able to control urine leakage when at home to make it to bathroom without leaking in presence of a stong urge. Voiding time every 2- 3 hrs. 05/12/23: 8% of the time can make it to the bathroom. LTG Duration 12 wks-08/12/23 slow progress 05/12/23 One Impairment Lacks HEP to control urinary leakage with urge and bowel leakage. Short Term Goal (STG) Pt educated in proper transfers to lessen core abdominal pressure. 03/10/23: Pt educated in proper transfer stand<>sit<> supine with core pressure management. STG Duration 03/10/23 (03/10/23: MET GOAL ) Senior Care Goal (LTG) Pt will be independent in a self care HEP for PF/core (rot )/hip ext strengthening. LTG Duration 12 wks-08/12/23 Assessment Summary Assessment Pt not able to coordinate consistently breathwork with transfers, requiring much cuing. Pt was not able to coordinate breathwork with LE roll in/outs and might not be able to coordinate; therefore will need to focus on PF strengthening without coordination of breath with LE roll in/outs. Physical Therapy Plan Frequency and Duration Frequency of Treatment 1x/Week Duration of treatment (weeks) 12 Plan of Care Start Date 05/12/23 Plan of Care End Date 08/12/23 Next Visit Focus/Plan Next Note Type Treatment Note Next Visit Plan Next: Re-issue bladder diary handouts. Review bladder diary and discuss fluid management, discuss stool types, food types, and water intake. Briefly review: Bladder retraining & proper coordination of core pressure management with PF contractions. EMG biofeedback. Pt education: Vulvar/genital care, proper body mechanics EX: (minimize HEP ex's due to pt difficulty with understanding/recall of ex's) PF/core(rot)/hip strengthening (extension), improve hip mobility (R ER, L IR), Manual: soft tissue (bladder) mobility.
--- NOTE | 2023-05-26 16:48 | PT.OTN ---
Current Diagnoses Stiffness of unspecified hip, not elsewhere classified (05/26/23) Lower abdominal pain, unspecified (05/26/23) Fecal urgency (05/26/23) Unspecified urinary incontinence (05/26/23) Physical Therapy Treatment Note PT-OP-A Visit Information Start: 02/16/23 18:07 Freq: Status: Active Protocol: Document 05/26/23 08:06 LRN (Rec: 05/26/23 08:52 LRN [id number]) Out-Patient Physical Therapy Visit Information Visit Information Visit Type Treatment Note Visit Start Time 08:06 Visit Stop Time 08:50 Total Visit Minutes 44 Visit Number 4 Evaluation Information Evaluation Date 02/24/23 Precautions Precautions 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 PT-OP-B Current Condition Start: 02/16/23 18:07 Freq: Status: Active Protocol: Document 02/24/23 08:03 LRN (Rec: 02/24/23 11:16 LRN [id number]) Current Condition History of Current Condition Onset Date 02/2022 Current Complaints Urge incontinence History of Current Condition Urinary urge incontinence that has worsened in past year. Urinary leaking after urge in sitting and leaks with transfers of various amounts. Prior Treatments and Tests Physical therapy for UI x 3, last was 3 yrs ago in [facility]. Was taught breathing that was helpful. Assessment by Urologist. Future Testing and Treatments Planned None Treatment Goals Patient/Caregiver Goals Pt goal is to: control urine leakage when at home to make it to bathroom without leaking in presence of a stong urge. Prior Functional Status Baseline Function- Other Urinary leakage daily. Current Functional Impairments (Reported) Functional Limitations- Other Urinary leakage, wears pads and changes 8-10x/day. Personal Factors Other Personal Factors That May Effect Double masectomy with Therapy/Recovery reconstruction of L breast, then R breast using stomach muscles to rebuild L breast (L breast is larger than the R), rebuild of abdomen at same time. PT-OP-C Subjective Start: 02/16/23 18:07 Freq: Status: Active Protocol: Document 05/26/23 08:06 LRN (Rec: 05/26/23 08:52 LRN [id number]) OP-PT Subjective Patient Comments Patient Comments Fell last week at home and isn 't sure why she fell and hit her L side of the face. Getting a new phone with [employer] program. Has a little more control over holding her urine. PT-OP-I Pelvic Floor Start: 02/16/23 18:07 Freq: Status: Active Protocol: Document 02/24/23 08:03 LRN (Rec: 02/24/23 11:16 LRN [id number]) Pelvic Floor Assessment Urine Pelvic Floor Surgery No Urinary Symptoms Dribbling After Urination Other Urinary Symptoms Variable amounts of leakage throughout the day. Leakage Cause Urge Other Leakage Causes Occasionlly leaks with coughing, sneezing or laughing , hiking and biking. Leaks Per Day 8-10 Nocturia every other night gets up once . Pads Used In 24 Hours 8-10 Urine Pad Type Panty Liner,Maxi Pad,Depends Bowel Bowel Symptoms Fecal Leakage Bowel Movement Frequency 1-2/day Pelvic Clock Pelvic Clock Other Pelvic Clock 7-10: Tender Pelvic Clock 3-9: Redness Pelvic Clock 5: [place] red tissue small opening, w/o pain on palpation Prolapse Cystocele Grade 3 Rectocele Grade 3 Perineal Descent Resting Present Bearing Present Contraction Ability Voluntary Contraction Weak Manual Muscle Testing Left 2 Manual Muscle Testing Right 3 Manual Muscle Testing Anterior 0 Manual Muscle Testing Posterior 2 Muscle Endurance (Seconds) 3 Number of Quick Contractions In 10 1 Seconds Comments Pelvic Floor Comments Pt PF external tissues appear fragile and dry with very 1/2 cm long skin tear opening at 6 of PF clock. Pt bearing down noted with PF contraction. Posterior PF Anal [place] present , No clitoral nod. PT-OP-J Posture/Palpation/Skin Start: 02/16/23 18:07 Freq: Status: Active Protocol: Document 02/24/23 08:03 LRN (Rec: 02/24/23 11:16 LRN [id number]) Posture Evaluation Position Standing Head/C-Spine Posture Forward Head T-Spine Posture Flattened L-Spine Posture Increased Lordosis Shoulder Posture (R) Elevated Scapula Posture (R) Elevated Arm Posture (L) Internally Rotated,(R) Internally Rotated Pelvis Posture Anteriorly Tilted Weight Distribution Balanced Comments Posture Comments L breast low, straight spine. PT-OP-K Range of Motion Start: 02/16/23 18:07 Freq: Status: Active Protocol: Document 02/24/23 08:03 LRN (Rec: 02/24/23 11:16 LRN [id number]) Lumbar Spine Range of Motion Lumbar Spine Active Degrees Testing Position Standing Flexion 70 Extension 20 Rotation Left 45 Rotation Right 40 Lateral Flexion Left 13 Lateral Flexion Right 5 ROM Limitations Soft Tissue Tightness Comments Flexion is 70 deg?s with 60 deg?s hip flexion, Trunk extension is 20 deg?s with 15 deg?s hip extension. Hip Goniometric Range of Motion Hip Right Passive Testing Position Supine Internal Rotation 40 External Rotation 30 Left Passive Testing Position Supine Internal Rotation 20 External Rotation 50 PT-OP-M Strength Start: 02/16/23 18:07 Freq: Status: Active Protocol: Document 02/24/23 08:03 LRN (Rec: 02/24/23 11:16 LRN [id number]) Trunk Strength Trunk Manual Muscle Testing Core Stabilization mild loss of trunk rotation stability/strength with MMT of LE's Hip Strength Hip Manual Muscle Testing Right Extension (S1) 3+ Fair+ Comments Normal strength except as indicated above. Left Extension (S1) 3 Fair Comments Normal strength except as indicated above. PT-OP-Q Treatments Start: 02/16/23 18:07 Freq: Status: Active Protocol: Document 05/26/23 08:06 LRN (Rec: 05/26/23 08:52 LRN [id number]) Therapeutic Exercises Supine Exercises PF/bridge/ball squeeze Supine Exercise Name PF/bridge/ball squeeze Equipment Used wedge, ball Reps/Minutes 2' Comments Cuing to start for exhale with bridge w/ball squeeze. PF/LE Roll in/outs Supine Exercise Name PF/LE roll in/outs w/breath Equipment Used Wedge, TB, ball Reps/Minutes 3' Comments Cuing for coordination of breath/belly/knees, then cuing for PF >< LE Roll in/outs Supine Exercise Name LE Roll in/outs w/Deep breathing Reps/Minutes 7' Comments Much v cuing & repetition of training for breath & LE mvmt PF w/Bridge Supine Exercise Name PF w/Bridge Reps/Minutes 5x Comments Much cuing and phys cuing needed Deep Breathing Supine Exercise Name deep breathing Equipment Used Self awareness with pt hands on chest & abdomen Reps/Minutes 2' Comments Much cuing for keeping chest still. PF Long Hold contactions Supine Exercise Name PF contraction strengthening Equipment Used Wedge & bolster Reps/Minutes 10 SH x 15 Standing Exercises Gripping Standing Exercise Name Control And Recovery Combat Rescue strength equal Reps/Minutes x 2 Comments Control And Recovery Combat Rescue strength - WNL SLS Standing Exercise Name SLS: 5 secs R, 4 secs L. Other Exercises Transfers w/coordinated breathing Other Exercise Name Transfers coordinating breath for core pressure management Reps/Minutes 2' Comments Phys & v cuing throughout transfers, and repeated transfers. Self-Care/Home Management Treatment Education Other Education Discussed to start her recent fall, and recommended pt speak to MD regarding fall. Discussed with pt possible use of [employer] system, but pt reports she is getting the apple watch with fall. Discussed for her safety, finding a partner to exercise with, she will try to find a partner to exercise. Discussed at length her routine for having BM's (daily mostly), stool types, and drinking of fluids and fluid types. Discussed food types and reviewed [employer] Bever[employer] Bladder Diet, and water intake. Educated pt in PF anatomy with model used. Activities Self-Care/Home Management Activities Reissued bladder diary that pt forgot to take last session. Issued & briefly reviewed [employer] Bever[employer] Bladder Diet . Pt able to coordinate ex with breath after cuing and practice. PT-OP-T Assessment and Plan Start: 02/16/23 18:07 Freq: Status: Active Protocol: Document 05/26/23 08:06 LRN (Rec: 05/26/23 08:52 LRN [id number]) Physical Therapy Assessment Goals Three Impairment Uses 8-10 urinary pads daily Short Term Goal (STG) Decrease use of urinary incontinence pads to 4-5/day 05/12/23: Using 4 pads daily STG Duration 04/16/23 (05/12/23: MET GOAL ) [facility] Goal (LTG) Pt will improve PF strength with decrease in urinary leakage to use of urinary incontinence pads 1-2x/day. 05/12/23: Using 4 pads daily LTG Duration 12 wks-08/12/23 ?progress Two Impairment Urge urinary incontinence Impairment Urinary leakage in presence of strong urge & after transfers sit<>stand. Short Term Goal (STG) Pt will be educated in urinary delay technique and educated in normal voiding times and amounts and will modify behaviour to void on 1st or 2nd urinary urge. 03/10/23: Pt educated in urinary delay technique. 05/12/23: Pt educated in normal voiding time and has modified her behavious to void on the 1st or 2nd urge, except she sometimes forgets in a social gathering situation. STG Duration 03/03/23 (05/12/23: MET GOAL) Tube Lancer Goal (LTG) Pt will be able to control urine leakage when at home to make it to bathroom without leaking in presence of a stong urge. Voiding time every 2- 3 hrs. 05/12/23: 8% of the time can make it to the bathroom. LTG Duration 12 wks-08/12/23 slow progress 05/12/23 One Impairment Lacks HEP to control urinary leakage with urge and bowel leakage. Short Term Goal (STG) Pt educated in proper transfers to lessen core abdominal pressure. 03/10/23: Pt educated in proper transfer stand<>sit<> supine with core pressure management. STG Duration 03/10/23 (03/10/23: MET GOAL ) Tube Lancer Goal (LTG) Pt will be independent in a self care HEP for PF/core (rot )/hip ext strengthening. LTG Duration 12 wks-08/12/23 Assessment Summary Assessment Pt able to deep breath correctly, transfer with coordination of breath, and able to coordinate breath w/LE roll in/outs, but difficulty coordinating with PF><. Physical Therapy Plan Frequency and Duration Frequency of Treatment 1x/Week Duration of treatment (weeks) 12 Plan of Care Start Date 05/12/23 Plan of Care End Date 08/12/23 Next Visit Focus/Plan Next Note Type Treatment Note Next Visit Plan Next: Briefly review: Bladder retraining & proper coordination of core pressure management with PF contractions, and LE roll in/ outs with added PF ><'s EMG biofeedback if agreeable ex & stim. Pt education: Vulvar/genital care, proper body mechanics EX: (minimize HEP ex's due to pt difficulty with understanding/recall of ex's) PF/core(rot)/hip strengthening (extension), improve hip mobility (R ER, L IR), Manual: soft tissue (bladder) mobility.
--- NOTE | 2023-05-30 07:39 | PT-OP ANOTE ---
Late Entry. Treatment time on 05/19/23 inaccurately reported time of treatment as 40 minutes, but was actually 38 minutes as reflected by billing charges.
--- NOTE | 2023-06-02 14:31 | PT.OTN ---
Current Diagnoses Stiffness of unspecified hip, not elsewhere classified (06/02/23) Lower abdominal pain, unspecified (06/02/23) Fecal urgency (06/02/23) Unspecified urinary incontinence (06/02/23) Physical Therapy Treatment Note PT-OP-A Visit Information Start: 02/16/23 18:07 Freq: Status: Active Protocol: Document 06/02/23 08:09 LRN (Rec: 06/02/23 09:04 LRN [id number]) Out-Patient Physical Therapy Visit Information Visit Information Visit Type Treatment Note Visit Start Time 08:15 Visit Stop Time 08:57 Total Visit Minutes 42 Visit Number 5 Evaluation Information Evaluation Date 02/24/23 Precautions Precautions 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 PT-OP-B Current Condition Start: 02/16/23 18:07 Freq: Status: Active Protocol: Document 02/24/23 08:03 LRN (Rec: 02/24/23 11:16 LRN [id number]) Current Condition History of Current Condition Onset Date 02/2022 Current Complaints Urge incontinence History of Current Condition Urinary urge incontinence that has worsened in past year. Urinary leaking after urge in sitting and leaks with transfers of various amounts. Prior Treatments and Tests Physical therapy for UI x 3, last was 3 yrs ago in [facility]. Was taught breathing that was helpful. Assessment by Urologist. Future Testing and Treatments Planned None Treatment Goals Patient/Caregiver Goals Pt goal is to: control urine leakage when at home to make it to bathroom without leaking in presence of a stong urge. Prior Functional Status Baseline Function- Other Urinary leakage daily. Current Functional Impairments (Reported) Functional Limitations- Other Urinary leakage, wears pads and changes 8-10x/day. Personal Factors Other Personal Factors That May Effect Double masectomy with Therapy/Recovery reconstruction of L breast, then R breast using stomach muscles to rebuild L breast (L breast is larger than the R), rebuild of abdomen at same time. PT-OP-C Subjective Start: 02/16/23 18:07 Freq: Status: Active Protocol: Document 06/02/23 08:09 LRN (Rec: 06/02/23 09:04 LRN [id number]) OP-PT Subjective Patient Comments Patient Comments States she has been doing more Kegels and feels she is getting better at exercising. States she can't do too many things at once considering the exercise. States when she gets up from bed she is not dribbling the 10' to the toilet. Sometimes empties a cup of urine on waking ( measured w/ a msg cup) and after eating will void 1/2 cup + 1 oz if sits longer; using the delay technique can make it to the bathroom. Patient Reported Progress Improving PT-OP-I Pelvic Floor Start: 02/16/23 18:07 Freq: Status: Active Protocol: Document 02/24/23 08:03 LRN (Rec: 02/24/23 11:16 LRN [id number]) Pelvic Floor Assessment Urine Pelvic Floor Surgery No Urinary Symptoms Dribbling After Urination Other Urinary Symptoms Variable amounts of leakage throughout the day. Leakage Cause Urge Other Leakage Causes Occasionlly leaks with coughing, sneezing or laughing , hiking and biking. Leaks Per Day 8-10 Nocturia every other night gets up once . Pads Used In 24 Hours 8-10 Urine Pad Type Panty Liner,Maxi Pad,Depends Bowel Bowel Symptoms Fecal Leakage Bowel Movement Frequency 1-2/day Pelvic Clock Pelvic Clock Other Pelvic Clock 7-10: Tender Pelvic Clock 3-9: Redness Pelvic Clock 5: [place] red tissue small opening, w/o pain on palpation Prolapse Cystocele Grade 3 Rectocele Grade 3 Perineal Descent Resting Present Bearing Present Contraction Ability Voluntary Contraction Weak Manual Muscle Testing Left 2 Manual Muscle Testing Right 3 Manual Muscle Testing Anterior 0 Manual Muscle Testing Posterior 2 Muscle Endurance (Seconds) 3 Number of Quick Contractions In 10 1 Seconds Comments Pelvic Floor Comments Pt PF external tissues appear fragile and dry with very 1/2 cm long skin tear opening at 6 of PF clock. Pt bearing down noted with PF contraction. Posterior PF Anal [place] present , No clitoral nod. PT-OP-J Posture/Palpation/Skin Start: 02/16/23 18:07 Freq: Status: Active Protocol: Document 02/24/23 08:03 LRN (Rec: 02/24/23 11:16 LRN [id number]) Posture Evaluation Position Standing Head/C-Spine Posture Forward Head T-Spine Posture Flattened L-Spine Posture Increased Lordosis Shoulder Posture (R) Elevated Scapula Posture (R) Elevated Arm Posture (L) Internally Rotated,(R) Internally Rotated Pelvis Posture Anteriorly Tilted Weight Distribution Balanced Comments Posture Comments L breast low, straight spine. PT-OP-K Range of Motion Start: 02/16/23 18:07 Freq: Status: Active Protocol: Document 02/24/23 08:03 LRN (Rec: 02/24/23 11:16 LRN [id number]) Lumbar Spine Range of Motion Lumbar Spine Active Degrees Testing Position Standing Flexion 70 Extension 20 Rotation Left 45 Rotation Right 40 Lateral Flexion Left 13 Lateral Flexion Right 5 ROM Limitations Soft Tissue Tightness Comments Flexion is 70 deg?s with 60 deg?s hip flexion, Trunk extension is 20 deg?s with 15 deg?s hip extension. Hip Goniometric Range of Motion Hip Right Passive Testing Position Supine Internal Rotation 40 External Rotation 30 Left Passive Testing Position Supine Internal Rotation 20 External Rotation 50 PT-OP-M Strength Start: 02/16/23 18:07 Freq: Status: Active Protocol: Document 02/24/23 08:03 LRN (Rec: 02/24/23 11:16 LRN [id number]) Trunk Strength Trunk Manual Muscle Testing Core Stabilization mild loss of trunk rotation stability/strength with MMT of LE's Hip Strength Hip Manual Muscle Testing Right Extension (S1) 3+ Fair+ Comments Normal strength except as indicated above. Left Extension (S1) 3 Fair Comments Normal strength except as indicated above. PT-OP-Q Treatments Start: 02/16/23 18:07 Freq: Status: Active Protocol: Document 06/02/23 08:09 LRN (Rec: 06/02/23 09:04 LRN [id number]) Therapeutic Exercises Supine Exercises PF/Bridge/Breath Supine Exercise Name PF/Bridge/Breath Reps/Minutes 5' Comments Phys & v cuing needed throughout ex PF Long Hold contactions Supine Exercise Name PF contraction strengthening Equipment Used Wedge & bolster Reps/Minutes 5' Comments Cuing for holding contraction of 3 breaths vs counting to 10 . PF Quick Contractions Supine Exercise Name PF contraction strengthening Equipment Used Wedge & bolster Reps/Minutes 1 SH x 30 Comments Cuing relax after 10 reps. Other Exercises Transfers w/coordinated breathing Other Exercise Name Repetition of transfers coordinating breath for core pressure management Reps/Minutes 15' Comments Phys & v cuing throughout transfers. Self-Care/Home Management Treatment Education Other Education Education at length in effects of increased inner core pressure and used visual effect of a balloon to demonstrate direction of core pressure with movement. Reviewed pt's bladder diary and discussed voiding amts and recommended pt count in secs voids since she knows amts voiding first in AM and after eating. Discussed drinking more fluids w/recommendation of lemon slices in water. Discussed voiding habits of every hr in AM, every 2-3 hrs in PM, and discussed need for retraining. PT-OP-T Assessment and Plan Start: 02/16/23 18:07 Freq: Status: Active Protocol: Document 06/02/23 08:09 LRN (Rec: 06/02/23 09:04 LRN [id number]) Physical Therapy Assessment Goals Three Impairment Uses 8-10 urinary pads daily Short Term Goal (STG) Decrease use of urinary incontinence pads to 4-5/day 05/12/23: Using 4 pads daily STG Duration 04/16/23 (05/12/23: MET GOAL ) [facility] Goal (LTG) Pt will improve PF strength with decrease in urinary leakage to use of urinary incontinence pads 1-2x/day. 05/12/23: Using 4 pads daily LTG Duration 12 wks-08/12/23 ?progress Two Impairment Urge urinary incontinence Impairment Urinary leakage in presence of strong urge & after transfers sit<>stand. Short Term Goal (STG) Pt will be educated in urinary delay technique and educated in normal voiding times and amounts and will modify behaviour to void on 1st or 2nd urinary urge. 03/10/23: Pt educated in urinary delay technique. 05/12/23: Pt educated in normal voiding time and has modified her behavious to void on the 1st or 2nd urge, except she sometimes forgets in a social gathering situation. STG Duration 03/03/23 (05/12/23: MET GOAL) [employer] Goal (LTG) Pt will be able to control urine leakage when at home to make it to bathroom without leaking in presence of a stong urge. Voiding time every 2- 3 hrs. 05/12/23: 8% of the time can make it to the bathroom. LTG Duration 12 wks-08/12/23 slow progress 05/12/23 One Impairment Lacks HEP to control urinary leakage with urge and bowel leakage. Short Term Goal (STG) Pt educated in proper transfers to lessen core abdominal pressure. 03/10/23: Pt educated in proper transfer stand<>sit<> supine with core pressure management. STG Duration 03/10/23 (03/10/23: MET GOAL ) [employer] Goal (LTG) Pt will be independent in a self care HEP for PF/core (rot )/hip ext strengthening. LTG Duration 12 wks-08/12/23 Assessment Summary Assessment Improved control over holding urine to get to toilet. PT habitually voids every hr in am and 1-3 hrs in pm; therefore pt needs Bladder Retraining in AM. Physical Therapy Plan Frequency and Duration Frequency of Treatment 1x/Week Duration of treatment (weeks) 12 Plan of Care Start Date 05/12/23 Plan of Care End Date 08/12/23 Next Visit Focus/Plan Next Note Type Treatment Note Next Visit Plan Next: Vemg stim for PF >< awareness training. Educate: Bladder retraining in AM. Start education/training in proper coordination of core pressure management with PF contractions and assess pt's ability to contract PF with mvmt & transfers. Add HEP. Ex: LE roll in/outs with added PF ><'s EMG biofeedback if agreeable ex & stim. Pt education: Vulvar/genital care, proper body mechanics EX: (minimize HEP ex's due to pt difficulty with understanding/recall of ex's) PF/core(rot)/hip strengthening (extension), improve hip mobility (R ER, L IR), HEP: PF/core (rot)/hip ext strengthening Manual: soft tissue (bladder) mobility.
--- NOTE | 2023-06-05 17:10 | PT.OTN ---
Current Diagnoses Stiffness of unspecified hip, not elsewhere classified (06/05/23) Lower abdominal pain, unspecified (06/05/23) Fecal urgency (06/05/23) Unspecified urinary incontinence (06/05/23) Physical Therapy Treatment Note PT-OP-A Visit Information Start: 02/16/23 18:07 Freq: Status: Active Protocol: Document 06/05/23 09:05 LRN (Rec: 06/05/23 09:49 LRN [id number]) Out-Patient Physical Therapy Visit Information Visit Information Visit Type Treatment Note Visit Start Time 09:05 Visit Stop Time 09:46 Total Visit Minutes 41 Visit Number 8 Evaluation Information Evaluation Date 02/24/23 Precautions Precautions 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 PT-OP-B Current Condition Start: 02/16/23 18:07 Freq: Status: Active Protocol: Document 02/24/23 08:03 LRN (Rec: 02/24/23 11:16 LRN [id number]) Current Condition History of Current Condition Onset Date 02/2022 Current Complaints Urge incontinence History of Current Condition Urinary urge incontinence that has worsened in past year. Urinary leaking after urge in sitting and leaks with transfers of various amounts. Prior Treatments and Tests Physical therapy for UI x 3, last was 3 yrs ago in [place] [facility]. Was taught breathing that was helpful. Assessment by Urologist. Future Testing and Treatments Planned None Treatment Goals Patient/Caregiver Goals Pt goal is to: control urine leakage when at home to make it to bathroom without leaking in presence of a stong urge. Prior Functional Status Baseline Function- Other Urinary leakage daily. Current Functional Impairments (Reported) Functional Limitations- Other Urinary leakage, wears pads and changes 8-10x/day. Personal Factors Other Personal Factors That May Effect Double masectomy with Therapy/Recovery reconstruction of L breast, then R breast using stomach muscles to rebuild L breast (L breast is larger than the R), rebuild of abdomen at same time. PT-OP-C Subjective Start: 02/16/23 18:07 Freq: Status: Active Protocol: Document 06/05/23 09:05 LRN (Rec: 06/05/23 09:49 LRN [id number]) OP-PT Subjective Patient Comments Patient Comments No changes, but states she isn 't going as often and dribbing in first AM and a little during the day. Doing Kegels all the time. PT-OP-I Pelvic Floor Start: 02/16/23 18:07 Freq: Status: Active Protocol: Document 02/24/23 08:03 LRN (Rec: 02/24/23 11:16 LRN [id number]) Pelvic Floor Assessment Urine Pelvic Floor Surgery No Urinary Symptoms Dribbling After Urination Other Urinary Symptoms Variable amounts of leakage throughout the day. Leakage Cause Urge Other Leakage Causes Occasionlly leaks with coughing, sneezing or laughing , hiking and biking. Leaks Per Day 8-10 Nocturia every other night gets up once . Pads Used In 24 Hours 8-10 Urine Pad Type Panty Liner,Maxi Pad,Depends Bowel Bowel Symptoms Fecal Leakage Bowel Movement Frequency 1-2/day Pelvic Clock Pelvic Clock Other Pelvic Clock 7-10: Tender Pelvic Clock 3-9: Redness Pelvic Clock 5: [place] red tissue small opening, w/o pain on palpation Prolapse Cystocele Grade 3 Rectocele Grade 3 Perineal Descent Resting Present Bearing Present Contraction Ability Voluntary Contraction Weak Manual Muscle Testing Left 2 Manual Muscle Testing Right 3 Manual Muscle Testing Anterior 0 Manual Muscle Testing Posterior 2 Muscle Endurance (Seconds) 3 Number of Quick Contractions In 10 1 Seconds Comments Pelvic Floor Comments Pt PF external tissues appear fragile and dry with very 1/2 cm long skin tear opening at 6 of PF clock. Pt bearing down noted with PF contraction. Posterior PF Anal [place] present , No clitoral nod. PT-OP-J Posture/Palpation/Skin Start: 02/16/23 18:07 Freq: Status: Active Protocol: Document 02/24/23 08:03 LRN (Rec: 02/24/23 11:16 LRN [id number]) Posture Evaluation Position Standing Head/C-Spine Posture Forward Head T-Spine Posture Flattened L-Spine Posture Increased Lordosis Shoulder Posture (R) Elevated Scapula Posture (R) Elevated Arm Posture (L) Internally Rotated,(R) Internally Rotated Pelvis Posture Anteriorly Tilted Weight Distribution Balanced Comments Posture Comments L breast low, straight spine. PT-OP-K Range of Motion Start: 02/16/23 18:07 Freq: Status: Active Protocol: Document 02/24/23 08:03 LRN (Rec: 02/24/23 11:16 LRN [id number]) Lumbar Spine Range of Motion Lumbar Spine Active Degrees Testing Position Standing Flexion 70 Extension 20 Rotation Left 45 Rotation Right 40 Lateral Flexion Left 13 Lateral Flexion Right 5 ROM Limitations Soft Tissue Tightness Comments Flexion is 70 deg?s with 60 deg?s hip flexion, Trunk extension is 20 deg?s with 15 deg?s hip extension. Hip Goniometric Range of Motion Hip Right Passive Testing Position Supine Internal Rotation 40 External Rotation 30 Left Passive Testing Position Supine Internal Rotation 20 External Rotation 50 PT-OP-M Strength Start: 02/16/23 18:07 Freq: Status: Active Protocol: Document 02/24/23 08:03 LRN (Rec: 02/24/23 11:16 LR [id number]) Trunk Strength Trunk Manual Muscle Testing Core Stabilization mild loss of trunk rotation stability/strength with MMT of LE's Hip Strength Hip Manual Muscle Testing Right Extension (S1) 3+ Fair+ Comments Normal strength except as indicated above. Left Extension (S1) 3 Fair Comments Normal strength except as indicated above. PT-OP-Q Treatments Start: 02/16/23 18:07 Freq: Status: Active Protocol: Document 06/05/23 09:05 LRN (Rec: 06/05/23 09:49 [facility] [id number]) Therapeutic Exercises Supine Exercises LE Roll in/out w/breath/PF >< Supine Exercise Name LE Roll in/out w/breath/PF >< Reps/Minutes 1' Comments Much repetition of ex and phys & v cuing required. Other Exercises Transfers w/coordinated breathing Other Exercise Name Repetition of transfers coordinating breath for core pressure management Reps/Minutes 15' Comments Phys & v cuing throughout transfers. Neuro Re-Education Treatment Other Activities Tamara Mcfarlane Details Tamara Mcfarlane 10:20 (on/off) Reps/Duration 12' Comments Settings: 50 pps, Intensity 39. Pt performing contractions when on. Extra time taken to determine max tolerated EStim for PF contraction. Self-Care/Home Management Treatment Education Patient Education Home Exercise Program Activities Self-Care/Home Management Activities Issued HEP: LE Roll in/outs with breathing. I/S pt not to worry about PF contractions until she can coordinate LE mvmt with breath, then to add PF contraction. Reviewed transfers coordinating breath for core pressure management and PF contractions. PT-OP-T Assessment and Plan Start: 02/16/23 18:07 Freq: Status: Active Protocol: Document 06/05/23 09:05 LRN (Rec: 06/05/23 09:49 LRN [id number]) Physical Therapy Assessment Goals Three Impairment Uses 8-10 urinary pads daily Short Term Goal (STG) Decrease use of urinary incontinence pads to 4-5/day 05/12/23: Using 4 pads daily STG Duration 04/16/23 (05/12/23: MET GOAL ) Mcfp Goal (LTG) Pt will improve PF strength with decrease in urinary leakage to use of urinary incontinence pads 1-2x/day. 05/12/23: Using 4 pads daily LTG Duration 12 wks-08/12/23 ?progress Two Impairment Urge urinary incontinence Impairment Urinary leakage in presence of strong urge & after transfers sit<>stand. Short Term Goal (STG) Pt will be educated in urinary delay technique and educated in normal voiding times and amounts and will modify behaviour to void on 1st or 2nd urinary urge. 03/10/23: Pt educated in urinary delay technique. 05/12/23: Pt educated in normal voiding time and has modified her behavious to void on the 1st or 2nd urge, except she sometimes forgets in a social gathering situation. STG Duration 03/03/23 (05/12/23: MET GOAL) Mcfp Goal (LTG) Pt will be able to control urine leakage when at home to make it to bathroom without leaking in presence of a stong urge. Voiding time every 2- 3 hrs. 05/12/23: 8% of the time can make it to the bathroom. LTG Duration 12 wks-08/12/23 slow progress 05/12/23 One Impairment Lacks HEP to control urinary leakage with urge and bowel leakage. Short Term Goal (STG) Pt educated in proper transfers to lessen core abdominal pressure. 03/10/23: Pt educated in proper transfer stand<>sit<> supine with core pressure management. STG Duration 03/10/23 (03/10/23: MET GOAL ) Mcfp Goal (LTG) Pt will be independent in a self care HEP for PF/core (rot )/hip ext strengthening. LTG Duration 12 wks-08/12/23 Assessment Summary Assessment + response to PF contraction awareness training. Pt able to pull electrode inward when stimulated and with 50% effort . More effort results in electrode pushing out. Pt has much difficulty with coordinating LE roll in/outs/ breath/PPF>< Physical Therapy Plan Frequency and Duration Frequency of Treatment 1x/Week Duration of treatment (weeks) 12 Plan of Care Start Date 05/12/23 Plan of Care End Date 08/12/23 Next Visit Focus/Plan Next Note Type Treatment Note Next Visit Plan Next: EMG biofeedback assessment. Vemg stim for PF >< training. Review education /training in proper coordination of core pressure management, adding PF contractions and assess pt's ability to contract PF with mvmt & transfers. Ex & HEP: LE roll in/outs with added PF ><'s Educate: Bladder retraining in AM. Pt education: Vulvar/genital care, proper body mechanics EX: (minimize HEP ex's due to pt difficulty with understanding/recall of ex's) PF/core(rot)/hip strengthening (extension), improve hip mobility (R ER, L IR), HEP: PF/core (rot)/hip ext strengthening Manual: soft tissue (bladder) mobility.
--- NOTE | 2023-06-23 09:02 | PT.OTN ---
Current Diagnoses Stiffness of unspecified hip, not elsewhere classified (06/23/23) Lower abdominal pain, unspecified (06/23/23) Fecal urgency (06/23/23) Unspecified urinary incontinence (06/23/23) Physical Therapy Treatment Note PT-OP-A Visit Information Start: 02/16/23 18:07 Freq: Status: Active Protocol: Document 06/23/23 08:18 LRN (Rec: 06/23/23 08:59 LRN [id number]) Out-Patient Physical Therapy Visit Information Visit Information Visit Type Treatment Note Visit Start Time 08:18 Visit Stop Time 08:52 Total Visit Minutes 43 Visit Number 9 Evaluation Information Evaluation Date 02/24/23 Precautions Precautions 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 PT-OP-B Current Condition Start: 02/16/23 18:07 Freq: Status: Active Protocol: Document 02/24/23 08:03 LRN (Rec: 02/24/23 11:16 LRN [id number]) Current Condition History of Current Condition Onset Date 02/2022 Current Complaints Urge incontinence History of Current Condition Urinary urge incontinence that has worsened in past year. Urinary leaking after urge in sitting and leaks with transfers of various amounts. Prior Treatments and Tests Physical therapy for UI x 3, last was 3 yrs ago in [place] [facility]. Was taught breathing that was helpful. Assessment by Urologist. Future Testing and Treatments Planned None Treatment Goals Patient/Caregiver Goals Pt goal is to: control urine leakage when at home to make it to bathroom without leaking in presence of a stong urge. Prior Functional Status Baseline Function- Other Urinary leakage daily. Current Functional Impairments (Reported) Functional Limitations- Other Urinary leakage, wears pads and changes 8-10x/day. Personal Factors Other Personal Factors That May Effect Double masectomy with Therapy/Recovery reconstruction of L breast, then R breast using stomach muscles to rebuild L breast (L breast is larger than the R), rebuild of abdomen at same time. PT-OP-C Subjective Start: 02/16/23 18:07 Freq: Status: Active Protocol: Document 06/23/23 08:18 LRN (Rec: 06/23/23 08:59 LRN [id number]) OP-PT Subjective Patient Comments Patient Comments So much better. Laying down and doing TA will automatically contract her PF. Able to get to bathroom. Is using 1/2 her pads per day. Doing Kegels anytime she thinks of it. Instead of moderate leakage she is light to moderate leakage. No longer using maxi pads, is using moderate to light pads. PT-OP-I Pelvic Floor Start: 02/16/23 18:07 Freq: Status: Active Protocol: Document 02/24/23 08:03 LRN (Rec: 02/24/23 11:16 LRN [id number]) Pelvic Floor Assessment Urine Pelvic Floor Surgery No Urinary Symptoms Dribbling After Urination Other Urinary Symptoms Variable amounts of leakage throughout the day. Leakage Cause Urge Other Leakage Causes Occasionlly leaks with coughing, sneezing or laughing , hiking and biking. Leaks Per Day 8-10 Nocturia every other night gets up once . Pads Used In 24 Hours 8-10 Urine Pad Type Panty Liner,Maxi Pad,Depends Bowel Bowel Symptoms Fecal Leakage Bowel Movement Frequency 1-2/day Pelvic Clock Pelvic Clock Other Pelvic Clock 7-10: Tender Pelvic Clock 3-9: Redness Pelvic Clock 5: [place] red tissue small opening, w/o pain on palpation Prolapse Cystocele Grade 3 Rectocele Grade 3 Perineal Descent Resting Present Bearing Present Contraction Ability Voluntary Contraction Weak Manual Muscle Testing Left 2 Manual Muscle Testing Right 3 Manual Muscle Testing Anterior 0 Manual Muscle Testing Posterior 2 Muscle Endurance (Seconds) 3 Number of Quick Contractions In 10 1 Seconds Comments Pelvic Floor Comments Pt PF external tissues appear fragile and dry with very 1/2 cm long skin tear opening at 6 of PF clock. Pt bearing down noted with PF contraction. Posterior PF Anal [place] present , No clitoral nod. PT-OP-J Posture/Palpation/Skin Start: 02/16/23 18:07 Freq: Status: Active Protocol: Document 02/24/23 08:03 LRN (Rec: 02/24/23 11:16 LRN [id number]) Posture Evaluation Position Standing Head/C-Spine Posture Forward Head T-Spine Posture Flattened L-Spine Posture Increased Lordosis Shoulder Posture (R) Elevated Scapula Posture (R) Elevated Arm Posture (L) Internally Rotated,(R) Internally Rotated Pelvis Posture Anteriorly Tilted Weight Distribution Balanced Comments Posture Comments L breast low, straight spine. PT-OP-K Range of Motion Start: 02/16/23 18:07 Freq: Status: Active Protocol: Document 02/24/23 08:03 LRN (Rec: 02/24/23 11:16 LRN [id number]) Lumbar Spine Range of Motion Lumbar Spine Active Degrees Testing Position Standing Flexion 70 Extension 20 Rotation Left 45 Rotation Right 40 Lateral Flexion Left 13 Lateral Flexion Right 5 ROM Limitations Soft Tissue Tightness Comments Flexion is 70 deg?s with 60 deg?s hip flexion, Trunk extension is 20 deg?s with 15 deg?s hip extension. Hip Goniometric Range of Motion Hip Right Passive Testing Position Supine Internal Rotation 40 External Rotation 30 Left Passive Testing Position Supine Internal Rotation 20 External Rotation 50 PT-OP-M Strength Start: 02/16/23 18:07 Freq: Status: Active Protocol: Document 02/24/23 08:03 LRN (Rec: 02/24/23 11:16 LRN [id number]) Trunk Strength Trunk Manual Muscle Testing Core Stabilization mild loss of trunk rotation stability/strength with MMT of LE's Hip Strength Hip Manual Muscle Testing Right Extension (S1) 3+ Fair+ Comments Normal strength except as indicated above. Left Extension (S1) 3 Fair Comments Normal strength except as indicated above. PT-OP-Q Treatments Start: 02/16/23 18:07 Freq: Status: Active Protocol: Document 06/23/23 08:18 LRN (Rec: 06/23/23 08:59 LRN [id number]) Therapeutic Exercises Supine Exercises Hip stretches Supine Exercise Name L Piriformis & Lateral hip, [place] Fig 4 Reps/Minutes 60 SH x 2 Comments Extra time to determine max tolerated position for stretch LE Roll in/out w/breath/PF >< Supine Exercise Name LE Roll in/out w/breath/Kegel Reps/Minutes 8' Comments Much repetition of ex and phys & v cuing required. Deep Breathing Supine Exercise Name deep breathing Equipment Used Self awareness with pt hands on chest & abdomen Reps/Minutes 2' Comments Much cuing for keeping chest still. Other Exercises Transfers w/coordinated breathing Other Exercise Name Repetition of transfers coordinating breath for core pressure management Reps/Minutes 8' Comments Phys & v cuing throughout transfers. Self-Care/Home Management Treatment Activities Self-Care/Home Management Activities Issued & reviewed HEP: L Piriformis & Lateral Hip stretch, Bilateral hip ER stretch PT-OP-T Assessment and Plan Start: 02/16/23 18:07 Freq: Status: Active Protocol: Document 06/23/23 08:18 LRN (Rec: 06/23/23 08:59 LRN [id number]) Physical Therapy Assessment Goals Three Impairment Uses 8-10 urinary pads daily Short Term Goal (STG) Decrease use of urinary incontinence pads to 4-5/day 05/12/23: Using 4 pads daily. 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 05/12/23: Using 4 pads daily. 06/23/23: Using 2-3 liner or moderate pads/day. Light leakage (like [employer]). LTG Duration 12 wks-08/12/23 progressing 06/23/23 Two Impairment Urge urinary incontinence Impairment Urinary leakage in presence of strong urge & after transfers sit<>stand. Short Term Goal (STG) Pt will be educated in urinary delay technique and educated in normal voiding times and amounts and will modify behaviour to void on 1st or 2nd urinary urge. 03/10/23: Pt educated in urinary delay technique. 05/12/23: Pt educated in normal voiding time and has modified her behavious to void on the 1st or 2nd urge, except she sometimes forgets in a social gathering situation. STG Duration 03/03/23 (05/12/23: MET GOAL) Care Home Goal (LTG) Pt will be able to control urine leakage when at home to make it to bathroom without leaking in presence of a stong urge. Voiding time every 2- 3 hrs. 05/12/23: 8% of the time can make it to the bathroom. 06/23/23: 40% of time making it to the bathroom. LTG Duration 12 wks-08/12/23 progressing 06/23/23 One Impairment Lacks HEP to control urinary leakage with urge and bowel leakage. Short Term Goal (STG) Pt educated in proper transfers to lessen core abdominal pressure. 03/10/23: Pt educated in proper transfer stand<>sit<> supine with core pressure management. 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 06/23/23: HEP: L Hip ER & lateral hip stretch; [place] hip ER (fig 4) stretch. Pt forgot handouts, will issue next session. LTG Duration 12 wks-08/12/23 progressed 06/23/23. Assessment Summary Assessment Pt progressing quickly after being able to coordinate movements with breath/Kegel. Reduced need for pads and heaviness of pads. Pt has fair understanding of hip stretches. Forgot HEP issued. Need to issue LE roll in/ outs. Physical Therapy Plan Frequency and Duration Frequency of Treatment 1x/Week Duration of treatment (weeks) 12 Plan of Care Start Date 05/12/23 Plan of Care End Date 08/12/23 Next Visit Focus/Plan Next Note Type Treatment Note Next Visit Plan Next: Review transfers off floor coordinating breath and Kegel & issue HEP of hip stretches. EMG biofeedback assessment. Cont Vemg stim for PF >< training. Monitor for proper coordination of core pressure management w/PF contractions; assess pt's ability to contract PF with mvmt & transfers. Ex & HEP: LE roll in/outs with added PF ><'s Educate: Bladder retraining in AM. Pt education: Vulvar/genital care, proper body mechanics EX: (minimize HEP ex's due to pt difficulty with understanding/recall of ex's) PF/core(rot)/hip strengthening (extension), improve hip mobility (R ER, L IR), HEP: PF/core (rot)/hip ext strengthening Manual: soft tissue (bladder) mobility.
--- NOTE | 2023-06-27 11:15 | PT.OTN ---
Current Diagnoses Stiffness of unspecified hip, not elsewhere classified (06/27/23) Lower abdominal pain, unspecified (06/27/23) Fecal urgency (06/27/23) Unspecified urinary incontinence (06/27/23) Physical Therapy Treatment Note PT-OP-A Visit Information Start: 02/16/23 18:07 Freq: Status: Active Protocol: Document 06/27/23 08:17 LRN (Rec: 06/27/23 09:00 LRN [id number]) Out-Patient Physical Therapy Visit Information Visit Information Visit Type Progress Note Visit Start Time 08:17 Visit Stop Time 08:56 Total Visit Minutes 39 Visit Number 10 Evaluation Information Evaluation Date 02/24/23 Precautions Precautions 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 PT-OP-B Current Condition Start: 02/16/23 18:07 Freq: Status: Active Protocol: Document 02/24/23 08:03 LRN (Rec: 02/24/23 11:16 LRN [id number]) Current Condition History of Current Condition Onset Date 02/2022 Current Complaints Urge incontinence History of Current Condition Urinary urge incontinence that has worsened in past year. Urinary leaking after urge in sitting and leaks with transfers of various amounts. Prior Treatments and Tests Physical therapy for UI x 3, last was 3 yrs ago in [place] [facility]. Was taught breathing that was helpful. Assessment by Urologist. Future Testing and Treatments Planned None Treatment Goals Patient/Caregiver Goals Pt goal is to: control urine leakage when at home to make it to bathroom without leaking in presence of a stong urge. Prior Functional Status Baseline Function- Other Urinary leakage daily. Current Functional Impairments (Reported) Functional Limitations- Other Urinary leakage, wears pads and changes 8-10x/day. Personal Factors Other Personal Factors That May Effect Double masectomy with Therapy/Recovery reconstruction of L breast, then R breast using stomach muscles to rebuild L breast (L breast is larger than the R), rebuild of abdomen at same time. PT-OP-C Subjective Start: 02/16/23 18:07 Freq: Status: Active Protocol: Document 06/27/23 08:17 LRN (Rec: 06/27/23 09:00 LRN [id number]) OP-PT Subjective Patient Comments Patient Comments States being aware of an urge with friends and is leaking less. Has more control of urine with breathing and is going every 2-3 hrs w/use of her watch. PT-OP-I Pelvic Floor Start: 02/16/23 18:07 Freq: Status: Active Protocol: Document 06/27/23 08:17 LRN (Rec: 06/27/23 09:00 LRN [id number]) Pelvic Floor Assessment SEMG (uV) Baseline 1.1 Quick Contraction 6.8 10 Second Contraction 9.0 Recruitment Pattern Good Relaxation Fair SEMG Stability of Rest Poor/Slow Comments Pelvic Floor Comments Rest: Hands by side. Kegels w/L hand under head for quick contractions and for 3 reps on long hold (rest of time hands by side. Quick Flicks: 10 reps strength (uV's): avg work 6.8, avg rest 8.8. 20 reps strength (uV's): avg work 6.2, avg rest 8.7. Long Holds: 10 reps strength (uV's): avg work 9.0, avg rest 2.8. 20 reps strength (uV's): avg work 9.0, avg rest 2.4. PT-OP-J Posture/Palpation/Skin Start: 02/16/23 18:07 Freq: Status: Active Protocol: Document 02/24/23 08:03 LRN (Rec: 02/24/23 11:16 LRN [id number]) Posture Evaluation Position Standing Head/C-Spine Posture Forward Head T-Spine Posture Flattened L-Spine Posture Increased Lordosis Shoulder Posture (R) Elevated Scapula Posture (R) Elevated Arm Posture (L) Internally Rotated,(R) Internally Rotated Pelvis Posture Anteriorly Tilted Weight Distribution Balanced Comments Posture Comments L breast low, straight spine. PT-OP-K Range of Motion Start: 02/16/23 18:07 Freq: Status: Active Protocol: Document 02/24/23 08:03 LRN (Rec: 02/24/23 11:16 LRN [id number]) Lumbar Spine Range of Motion Lumbar Spine Active Degrees Testing Position Standing Flexion 70 Extension 20 Rotation Left 45 Rotation Right 40 Lateral Flexion Left 13 Lateral Flexion Right 5 ROM Limitations Soft Tissue Tightness Comments Flexion is 70 deg?s with 60 deg?s hip flexion, Trunk extension is 20 deg?s with 15 deg?s hip extension. Hip Goniometric Range of Motion Hip Right Passive Testing Position Supine Internal Rotation 40 External Rotation 30 Left Passive Testing Position Supine Internal Rotation 20 External Rotation 50 PT-OP-M Strength Start: 02/16/23 18:07 Freq: Status: Active Protocol: Document 02/24/23 08:03 LRN (Rec: 02/24/23 11:16 LRN [id number]) Trunk Strength Trunk Manual Muscle Testing Core Stabilization mild loss of trunk rotation stability/strength with MMT of LE's Hip Strength Hip Manual Muscle Testing Right Extension (S1) 3+ Fair+ Comments Normal strength except as indicated above. Left Extension (S1) 3 Fair Comments Normal strength except as indicated above. PT-OP-Q Treatments Start: 02/16/23 18:07 Freq: Status: Active Protocol: Document 06/27/23 08:17 LRN (Rec: 06/27/23 09:00 LRN [id number]) Therapeutic Exercises Supine Exercises PF resting tone assessment Supine Exercise Name See PF (EMG) assessment. Hip stretches Supine Exercise Name L Piriformis & Lateral hip, [place] Fig 4 Reps/Minutes 60 SH x 2 Comments Extra time to review max tolerated position for stretch LE Roll in/out w/breath/PF >< Supine Exercise Name LE Roll in/out w/breath/Kegel Reps/Minutes 8' Comments Pt able to coordinate until PF >< added. PF/Bridge/Breath Supine Exercise Name PF/Bridge/Breath Reps/Minutes 2' Comments Much v cuing for exhale on exertion. PF/bridge/ball squeeze Supine Exercise Name PF/bridge/ball squeeze/breath (pt inhaling with lift) Equipment Used wedge, ball Reps/Minutes 3' Comments Cuing to start for exhale with bridge w/ball squeeze. Deep Breathing Supine Exercise Name deep breathing Equipment Used Self awareness with pt hands on chest & abdomen Reps/Minutes 2' Comments Much cuing for keeping chest still. PF Long Hold contactions Supine Exercise Name PF long hold contractions for Vemg assessment Reps/Minutes 20x PF Quick Contractions Supine Exercise Name PF quick contractions for Vemg assessment Reps/Minutes 20x Self-Care/Home Management Treatment Education Caregiver Education Reviewed, educated and discussed proper coordination of core pressure management using proper breathwork. Reviewed coordination of performing Kegel/exhale with exertion with mvmt and transfers. PT-OP-T Assessment and Plan Start: 02/16/23 18:07 Freq: Status: Active Protocol: Document 06/27/23 08:17 LRN (Rec: 06/27/23 09:00 LRN [id number]) Physical Therapy Assessment Goals Three Impairment Uses 8-10 urinary pads daily Short Term Goal (STG) Decrease use of urinary incontinence pads to 4-5/day 05/12/23: Using 4 pads daily. STG Duration 04/16/23 (05/12/23: MET GOAL ) [facility] Goal (LTG) Pt will improve PF strength with decrease in urinary leakage to use of urinary incontinence pads 1-2x/day. 05/12/23: Using 4 pads daily. 06/23/23: Using 2-3 liner or moderate pads/day. Light leakage (like Tablespoon). LTG Duration 12 wks-08/12/23 progressing 06/23/23 Two Impairment Urge urinary incontinence Impairment Urinary leakage in presence of strong urge & after transfers sit<>stand. Short Term Goal (STG) Pt will be educated in urinary delay technique and educated in normal voiding times and amounts and will modify behaviour to void on 1st or 2nd urinary urge. 03/10/23: Pt educated in urinary delay technique. 05/12/23: Pt educated in normal voiding time and has modified her behavious to void on the 1st or 2nd urge, except she sometimes forgets in a social gathering situation. STG Duration 03/03/23 (05/12/23: MET GOAL) [facility] Goal (LTG) Pt will be able to control urine leakage when at home to make it to bathroom without leaking in presence of a stong urge. Voiding time every 2- 3 hrs. 05/12/23: 8% of the time can make it to the bathroom. 06/23/23: 40% of time making it to the bathroom. 06/27/23: 75% of time making to the bathroom LTG Duration 12 wks-08/12/23 progressing 06/27/23 One Impairment Lacks HEP to control urinary leakage with urge and bowel leakage. Short Term Goal (STG) Pt educated in proper transfers to lessen core abdominal pressure. 03/10/23: Pt educated in proper transfer stand<>sit<> supine with core pressure management. STG Duration 03/10/23 (03/10/23: MET GOAL ) Financial Advisor Trainee Goal (LTG) Pt will be independent in a self care HEP for PF/core (rot )/hip ext strengthening. 06/23/23: HEP: L Hip ER & lateral hip stretch; [place] hip ER (fig 4) stretch. Pt forgot handouts, will issue next session. LTG Duration 12 wks-08/12/23 progressed 06/23/23. Assessment Summary Assessment Less urinary leakage with improved awareness of urge to urinate and w/use of her watch to urinate every 2-3 hrs. Fairly good recall of hip stretches and is remembering to contract PF and breath coordinate with transfers. Per VEMG biofeedback, resting tone stability is poor, contraction strength is good and consistent w/quick flicks; long holds is fair to good with contraction and ability to rest. Pt needed 3-5 reps to get in sync with machine with each assessment. Physical Therapy Plan Frequency and Duration Frequency of Treatment 1x/Week Duration of treatment (weeks) 12 Plan of Care Start Date 05/12/23 Plan of Care End Date 08/12/23 Next Visit Focus/Plan Next Note Type Treatment Note Next Visit Plan Next: Review transfers off floor coordinating breath and Kegel. Cont Vemg stim for PF >< training. Monitor for proper coordination of core pressure management w/PF contractions & ability to contract PF with mvmt & transfers. Ex & HEP: LE roll in/outs with added PF ><'s Educate: Bladder retraining in AM. Pt education: Vulvar/genital care, proper body mechanics EX: (minimize HEP ex's due to pt difficulty with understanding/recall of ex's) PF/core(rot)/hip strengthening (extension), HEP: PF/core (rot)/hip ext strengthening Manual: soft tissue (bladder) mobility. Monitor for improved hip mobility (R ER, L IR
--- NOTE | 2023-07-21 17:17 | PT.OTN ---
Current Diagnoses Stiffness of unspecified hip, not elsewhere classified (07/21/23) Lower abdominal pain, unspecified (07/21/23) Fecal urgency (07/21/23) Unspecified urinary incontinence (07/21/23) Physical Therapy Treatment Note PT-OP-A Visit Information Start: 02/16/23 18:07 Freq: Status: Active Protocol: Document 07/21/23 08:16 LRN (Rec: 07/21/23 09:05 LRN [id number]) Out-Patient Physical Therapy Visit Information Visit Information Visit Type Progress Note Visit Note 1 after PN Visit Start Time 08:16 Visit Stop Time 08:56 Total Visit Minutes 50 Visit Number 11 total, 08/04 Evaluation Information Evaluation Date 02/24/23 Precautions Precautions 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 PT-OP-B Current Condition Start: 02/16/23 18:07 Freq: Status: Active Protocol: Document 02/24/23 08:03 LRN (Rec: 02/24/23 11:16 LRN [id number]) Current Condition History of Current Condition Onset Date 02/2022 Current Complaints Urge incontinence History of Current Condition Urinary urge incontinence that has worsened in past year. Urinary leaking after urge in sitting and leaks with transfers of various amounts. Prior Treatments and Tests Physical therapy for UI x 3, last was 3 yrs ago in [place] [facility]. Was taught breathing that was helpful. Assessment by Urologist. Future Testing and Treatments Planned None Treatment Goals Patient/Caregiver Goals Pt goal is to: control urine leakage when at home to make it to bathroom without leaking in presence of a stong urge. Prior Functional Status Baseline Function- Other Urinary leakage daily. Current Functional Impairments (Reported) Functional Limitations- Other Urinary leakage, wears pads and changes 8-10x/day. Personal Factors Other Personal Factors That May Effect Double masectomy with Therapy/Recovery reconstruction of L breast, then R breast using stomach muscles to rebuild L breast (L breast is larger than the R), rebuild of abdomen at same time. PT-OP-C Subjective Start: 02/16/23 18:07 Freq: Status: Active Protocol: Document 07/21/23 08:16 LRN (Rec: 07/21/23 09:05 LRN [id number]) OP-PT Subjective Patient Comments Patient Comments States she is so much better, had 1 accident that was small (after 3 glasses of wine, and didn't pay attention to her watch). Pt using watch to remind her to urinate every 3 hrs. Patient Questionnaires Pelvic Pain and Urgency/Frequency Patient Symptom Scale Pelvic Pain Score 5 PT-OP-I Pelvic Floor Start: 02/16/23 18:07 Freq: Status: Active Protocol: Document 06/27/23 08:17 LRN (Rec: 06/27/23 09:00 LRN [id number]) Pelvic Floor Assessment SEMG (uV) Baseline 1.1 Quick Contraction 6.8 10 Second Contraction 9.0 Recruitment Pattern Good Relaxation Fair SEMG Stability of Rest Poor/Slow Comments Pelvic Floor Comments Rest: Hands by side. Kegels w/L hand under head for quick contractions and for 3 reps on long hold (rest of time hands by side. Quick Flicks: 10 reps strength (uV's): avg work 6.8, avg rest 8.8. 20 reps strength (uV's): avg work 6.2, avg rest 8.7. Long Holds: 10 reps strength (uV's): avg work 9.0, avg rest 2.8. 20 reps strength (uV's): avg work 9.0, avg rest 2.4. PT-OP-J Posture/Palpation/Skin Start: 02/16/23 18:07 Freq: Status: Active Protocol: Document 02/24/23 08:03 LRN (Rec: 02/24/23 11:16 LRN [id number]) Posture Evaluation Position Standing Head/C-Spine Posture Forward Head T-Spine Posture Flattened L-Spine Posture Increased Lordosis Shoulder Posture (R) Elevated Scapula Posture (R) Elevated Arm Posture (L) Internally Rotated,(R) Internally Rotated Pelvis Posture Anteriorly Tilted Weight Distribution Balanced Comments Posture Comments L breast low, straight spine. PT-OP-K Range of Motion Start: 02/16/23 18:07 Freq: Status: Active Protocol: Document 02/24/23 08:03 LRN (Rec: 02/24/23 11:16 LRN [id number]) Lumbar Spine Range of Motion Lumbar Spine Active Degrees Testing Position Standing Flexion 70 Extension 20 Rotation Left 45 Rotation Right 40 Lateral Flexion Left 13 Lateral Flexion Right 5 ROM Limitations Soft Tissue Tightness Comments Flexion is 70 deg?s with 60 deg?s hip flexion, Trunk extension is 20 deg?s with 15 deg?s hip extension. Hip Goniometric Range of Motion Hip Right Passive Testing Position Supine Internal Rotation 40 External Rotation 30 Left Passive Testing Position Supine Internal Rotation 20 External Rotation 50 PT-OP-M Strength Start: 02/16/23 18:07 Freq: Status: Active Protocol: Document 02/24/23 08:03 LRN (Rec: 02/24/23 11:16 LRN [id number]) Trunk Strength Trunk Manual Muscle Testing Core Stabilization mild loss of trunk rotation stability/strength with MMT of LE's Hip Strength Hip Manual Muscle Testing Right Extension (S1) 3+ Fair+ Comments Normal strength except as indicated above. Left Extension (S1) 3 Fair Comments Normal strength except as indicated above. PT-OP-Q Treatments Start: 02/16/23 18:07 Freq: Status: Active Protocol: Document 07/21/23 08:16 LRN (Rec: 07/21/23 09:05 LRN [id number]) Therapeutic Exercises Other Exercises Transfer from floor coordinating Kegel/breath Other Exercise Name Transfer from floor coordinating Kegel/breath Reps/Minutes 22' Transfers w/coordinated breathing Other Exercise Name Sit<>sup, sit<>stand, coordinating breath & PF contraction w/transfer Reps/Minutes 12x w/education and training throughout exercise. Comments Phys & v cuing throughout transfers. Self-Care/Home Management Treatment Education Other Education Discussed results of reassessment, goals and plan of care (POC). Pt agreeable to goals and POC. PT-OP-T Assessment and Plan Start: 02/16/23 18:07 Freq: Status: Active Protocol: Document 07/21/23 08:16 LRN (Rec: 07/21/23 09:05 LRN [id number]) Physical Therapy Assessment Rehab Potential Rehabilitation Potential Good Evaluation Complexity Number of Personal Factors/Comorbidities 1-2 Number of Body Systems Impaired 4 or More Clinical Presentation at Evaluation Evolving Impairments Impairments Activity Tolerance,Posture,ROM ,Strength,Transfers Other Impairments Urinary leakage with strong urge, mostly in standing and with transfers. Goals Three Impairment Uses 8-10 urinary pads daily Short Term Goal (STG) Decrease use of urinary incontinence pads to 4-5/day 05/12/23: Using 4 pads daily. STG Duration 04/16/23 (05/12/23: MET GOAL ) [employer] Assistant Goal (LTG) Pt will improve PF strength with decrease in urinary leakage to use of urinary incontinence pads 1-2x/day. 05/12/23: Using 4 pads daily. 06/23/23: Using 2-3 liner or moderate pads/day. Light leakage (like Tablespoon). 07/21/23: With use of watch to tell her to void, she is changing pads 1-2x/day and has been able to go without a pad 1x/week. LTG Duration 12 wks-08/12/23 (07/21/22: MET GOAL, using watch to remind pt to void) Two Impairment Urge urinary incontinence Impairment Urinary leakage in presence of strong urge & after transfers sit<>stand. Short Term Goal (STG) Pt will be educated in urinary delay technique and educated in normal voiding times and amounts and will modify behaviour to void on 1st or 2nd urinary urge. 03/10/23: Pt educated in urinary delay technique. 05/12/23: Pt educated in normal voiding time and has modified her behavious to void on the 1st or 2nd urge, except she sometimes forgets in a social gathering situation. STG Duration 03/03/23 (05/12/23: MET GOAL) Free[employer] Assistant Goal (LTG) Pt will be able to control urine leakage when at home to make it to bathroom without leaking in presence of a stong urge. Voiding time every 2- 3 hrs. 05/12/23: 8% of the time can make it to the bathroom. 06/23/23: 40% of time making it to the bathroom. 06/27/23: 75% of time making to the bathroom 07/21/23: 80% of time able to make it to bathroom and sit on toilet before voiding. LTG Duration 12 wks-08/12/23 progressing 07/21/23 One Impairment Lacks HEP to control urinary leakage with urge and bowel leakage. Short Term Goal (STG) Pt educated in proper transfers to lessen core abdominal pressure. 03/10/23: Pt educated in proper transfer stand<>sit<> supine with core pressure management. STG Duration 03/10/23 (03/10/23: MET GOAL ) Freezer Assistant Goal (LTG) Pt will be independent in a self care HEP for PF/core (rot )/hip ext strengthening. 06/23/23: HEP: L Hip ER & lateral hip stretch; [place] hip ER (fig 4) stretch. Pt forgot handouts, will issue next session. LTG Duration 12 more wks-10/20/23 progressed 06/23/23. Assessment Summary Assessment Pt is an 82 yo female who presents with stress urinary incontinence, grade 3 cystocele & rectocele, weakness & decreased endurance of her PF muscles. The pt has made good improvement and with use of a watch timer is voiding in a more consistent basis, reportedly every 3 hrs and with the PF strengthening has greatly reduced her urinary leakage. Today was spent on transfer training, mostly from the floor, to coordinate PF/breathing coordination, which the pt was able to demonstrate the ability to transfer from the floor with use of equipment and without assist. The pt is going to [place] for a couple months and would like to return for completion of her PF rehab program (PF/core/hip strengthening), which I feel is very appropriate; therefore the pt will benefit from continued skilled physical therapy to achieve the above stated goals. Physical Therapy Plan Frequency and Duration Frequency of Treatment 1x/Week Duration of treatment (weeks) 12 Plan of Care Start Date 07/21/23 Plan of Care End Date 10/20/23 Therapeutic Interventions Therapeutic Interventions Home Exercise Program,Joint Mobilizations,Manual Therapy, Neuromuscular Re-education, Self-Care/Home Management,Soft Tissue Mobilization, Therapeutic Activities, Therapeutic Exercises Modalities Cold Pack/Ice Massage,Hot Packs Next Visit Focus/Plan Next Note Type Treatment Note Next Visit Plan Next: Cont Vemg stim for PF >< training. Monitor for proper coordination of core pressure management w/PF contractions & ability to contract PF with mvmt & transfers. Ex & HEP: LE roll in/outs with added PF ><'s Educate: Bladder retraining in AM. Pt education: Vulvar/genital care, proper body mechanics EX: (minimize HEP ex's due to pt difficulty with understanding/recall of ex's) PF/core(rot)/hip strengthening (extension), HEP: PF/core (rot)/hip ext strengthening Manual: soft tissue (bladder) mobility. Monitor for improved hip mobility (R ER, L IR
--- NOTE | 2023-07-28 09:29 | PT.OTN ---
Current Diagnoses Stiffness of unspecified hip, not elsewhere classified (07/28/23) Lower abdominal pain, unspecified (07/28/23) Fecal urgency (07/28/23) Unspecified urinary incontinence (07/28/23) Physical Therapy Treatment Note PT-OP-A Visit Information Start: 02/16/23 18:07 Freq: Status: Active Protocol: Document 07/28/23 08:23 LRN (Rec: 07/28/23 09:28 LRN [id number]) Out-Patient Physical Therapy Visit Information Visit Information Visit Type Treatment Note Visit Note 1 after PN Visit Start Time 08: Visit Stop Time 09:03 Total Visit Minutes 40 Visit Number 12 total, 09/04 Evaluation Information Evaluation Date 02/24/23 Precautions Precautions 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 PT-OP-B Current Condition Start: 02/16/23 18:07 Freq: Status: Active Protocol: Document 02/24/23 08:03 LRN (Rec: 02/24/23 11:16 LRN [id number]) Current Condition History of Current Condition Onset Date 02/2022 Current Complaints Urge incontinence History of Current Condition Urinary urge incontinence that has worsened in past year. Urinary leaking after urge in sitting and leaks with transfers of various amounts. Prior Treatments and Tests Physical therapy for UI x 3, last was 3 yrs ago in [place] [facility]. Was taught breathing that was helpful. Assessment by Urologist. Future Testing and Treatments Planned None Treatment Goals Patient/Caregiver Goals Pt goal is to: control urine leakage when at home to make it to bathroom without leaking in presence of a stong urge. Prior Functional Status Baseline Function- Other Urinary leakage daily. Current Functional Impairments (Reported) Functional Limitations- Other Urinary leakage, wears pads and changes 8-10x/day. Personal Factors Other Personal Factors That May Effect Double masectomy with Therapy/Recovery reconstruction of L breast, then R breast using stomach muscles to rebuild L breast (L breast is larger than the R), rebuild of abdomen at same time. PT-OP-C Subjective Start: 02/16/23 18:07 Freq: Status: Active Protocol: Document 07/28/23 08:23 LRN (Rec: 07/28/23 09:28 LRN [id number]) OP-PT Subjective Patient Comments Patient Comments States she is leaving for trip last wk in Jul and will return 14 of September. Sleeps through the night. When getting up 1st in AM, dribbles just a little. PT-OP-I Pelvic Floor Start: 02/16/23 18:07 Freq: Status: Active Protocol: Document 07/28/23 08:23 LRN (Rec: 07/28/23 09:28 LRN [id number]) Pelvic Floor Assessment SEMG (uV) Baseline 0.1 Quick Contraction 10.1 10 Second Contraction 9.5 Recruitment Pattern Good Relaxation Fair Holding Fair Stability of Hold Poor/Slow SEMG Stability of Rest Good Comments Pelvic Floor Comments Quick Contractions 20 reps avg work (see above), avg rest 8. 1 uV's. Long Hold Contractions: 10 reps (see above), avg rest 1.3 uV's. 20 reps: avg work uV's, avg rest uV's. PT-OP-J Posture/Palpation/Skin Start: 02/16/23 18:07 Freq: Status: Active Protocol: Document 02/24/23 08:03 LRN (Rec: 02/24/23 11:16 LRN [id number]) Posture Evaluation Position Standing Head/C-Spine Posture Forward Head T-Spine Posture Flattened L-Spine Posture Increased Lordosis Shoulder Posture (R) Elevated Scapula Posture (R) Elevated Arm Posture (L) Internally Rotated,(R) Internally Rotated Pelvis Posture Anteriorly Tilted Weight Distribution Balanced Comments Posture Comments L breast low, straight spine. PT-OP-K Range of Motion Start: 02/16/23 18:07 Freq: Status: Active Protocol: Document 02/24/23 08:03 LRN (Rec: 02/24/23 11:16 LRN [id number]) Lumbar Spine Range of Motion Lumbar Spine Active Degrees Testing Position Standing Flexion 70 Extension 20 Rotation Left 45 Rotation Right 40 Lateral Flexion Left 13 Lateral Flexion Right 5 ROM Limitations Soft Tissue Tightness Comments Flexion is 70 deg?s with 60 deg?s hip flexion, Trunk extension is 20 deg?s with 15 deg?s hip extension. Hip Goniometric Range of Motion Hip Right Passive Testing Position Supine Internal Rotation 40 External Rotation 30 Left Passive Testing Position Supine Internal Rotation 20 External Rotation 50 PT-OP-M Strength Start: 02/16/23 18:07 Freq: Status: Active Protocol: Document 02/24/23 08:03 LRN (Rec: 02/24/23 11:16 LRN [id number]) Trunk Strength Trunk Manual Muscle Testing Core Stabilization mild loss of trunk rotation stability/strength with MMT of LE's Hip Strength Hip Manual Muscle Testing Right Extension (S1) 3+ Fair+ Comments Normal strength except as indicated above. Left Extension (S1) 3 Fair Comments Normal strength except as indicated above. PT-OP-Q Treatments Start: 02/16/23 18:07 Freq: Status: Active Protocol: Document 07/28/23 08:23 LRN (Rec: 07/28/23 09:28 LRN [id number]) Neuro Re-Education Treatment Other Activities Vemg Kegels Details Vemg visual feedback for quick and endurance PF contractions Reps/Duration 28' Comments Cuing needed for timing of contractions and rest periods. Pt needing constant cuing for quick contractions and cuing for start of contraction and start of relaxation. Self-Care/Home Management Treatment Education Other Education Discussed use of incontinent underwear and type of pads to wear on top of her underwear in case of leakage outside of home and during the day. Activities Self-Care/Home Management Activities See SEMG assessment above. PT-OP-T Assessment and Plan Start: 02/16/23 18:07 Freq: Status: Active Protocol: Document 07/28/23 08:23 LRN (Rec: 07/28/23 09:28 LRN [id number]) Physical Therapy Assessment Goals Three Impairment Uses 8-10 urinary pads daily Short Term Goal (STG) Decrease use of urinary incontinence pads to 4-5/day 05/12/23: Using 4 pads daily. 07/28/23: Wears incontinence underwear, wears pad going out . STG Duration 04/16/23 (05/12/23: MET GOAL ) Logging Equipment Operator Goal (LTG) Pt will improve PF strength with decrease in urinary leakage to use of urinary incontinence pads 1-2x/day. 05/12/23: Using 4 pads daily. 06/23/23: Using 2-3 liner or moderate pads/day. Light leakage (like Tablespoon). 07/21/23: With use of watch to tell her to void, she is changing pads 1-2x/day and has been able to go without a pad 1x/week. LTG Duration 12 wks-08/12/23 (07/21/22: MET GOAL, using watch to remind pt to void) Two Impairment Urge urinary incontinence Impairment Urinary leakage in presence of strong urge & after transfers sit<>stand. Short Term Goal (STG) Pt will be educated in urinary delay technique and educated in normal voiding times and amounts and will modify behaviour to void on 1st or 2nd urinary urge. 03/10/23: Pt educated in urinary delay technique. 05/12/23: Pt educated in normal voiding time and has modified her behavious to void on the 1st or 2nd urge, except she sometimes forgets in a social gathering situation. STG Duration 03/03/23 (05/12/23: MET GOAL) Logging Equipment Operator Goal (LTG) Pt will be able to control urine leakage when at home to make it to bathroom without leaking in presence of a stong urge. Voiding time every 2- 3 hrs. 05/12/23: 8% of the time can make it to the bathroom. 06/23/23: 40% of time making it to the bathroom. 06/27/23: 75% of time making to the bathroom 07/21/23: 80% of time able to make it to bathroom and sit on toilet before voiding. LTG Duration 12 wks-08/12/23 progressing 07/21/23 One Impairment Lacks HEP to control urinary leakage with urge and bowel leakage. Short Term Goal (STG) Pt educated in proper transfers to lessen core abdominal pressure. 03/10/23: Pt educated in proper transfer stand<>sit<> supine with core pressure management. STG Duration 03/10/23 (03/10/23: MET GOAL ) [facility] Goal (LTG) Pt will be independent in a self care HEP for PF/core (rot )/hip ext strengthening. 06/23/23: HEP: L Hip ER & lateral hip stretch; jp hip ER (fig 4) stretch. Pt forgot handouts, will issue next session. 07/28/23: I/S pt: 1) PF contractions in isolation, 2) add LE roll in/out with PF contraction for 10 sec long hold. LTG Duration 12 more wks-10/20/23 progressed 07/28/22. Assessment Summary Assessment Improved awareness of PF contractions in isolation of substitute ms and is better able to control the substitute ms with PF contractions. Improved stability of hold when adding Kegel with LE roll in/outs. Pt demonstrates good core pressure managment with transfers. Physical Therapy Plan Frequency and Duration Frequency of Treatment 1x/Week Duration of treatment (weeks) 12 Plan of Care Start Date 07/21/23 Plan of Care End Date 10/20/23 Next Visit Focus/Plan Next Note Type Discharge Summary Next Visit Plan Next: On return from trip, monitor for if pt grecia PF with mvmt & transfers. Assess for improved hip PROM ( R ER, L IR). Cont Vemg stim for PF >< training, Re-issue if needed, LE roll in/outs with added PF ><'s. Add TBall & Band to roll in/outs. Start: Bladder retraining in AM. Pt education: Vulvar/genital care, proper body mechanics EX: (minimize HEP ex's due to pt difficulty with understanding/recall of ex's) PF/core(rot)/hip strengthening (extension), HEP: PF/core (rot)/hip ext strengthening Manual: soft tissue (bladder) mobility.
--- NOTE | 2023-09-19 10:10 | PT.OTN ---
Current Diagnoses Stiffness of unspecified hip, not elsewhere classified (09/19/23) Lower abdominal pain, unspecified (09/19/23) Fecal urgency (09/19/23) Unspecified urinary incontinence (09/19/23) Physical Therapy Treatment Note PT-OP-A Visit Information Start: 02/16/23 18:07 Freq: Status: Active Protocol: Document 09/19/23 08:17 LRN (Rec: 09/19/23 09:03 LRN [id number]) Out-Patient Physical Therapy Visit Information Visit Information Visit Type Treatment Note Visit Note 2 after PN Visit Start Time 08:17 Visit Stop Time 08:55 Visit Number 13 total, 10/02 Evaluation Information Evaluation Date 02/24/23 Precautions Precautions 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 PT-OP-B Current Condition Start: 02/16/23 18:07 Freq: Status: Active Protocol: Document 02/24/23 08:03 LRN (Rec: 02/24/23 11:16 LRN [id number]) Current Condition History of Current Condition Onset Date 02/2022 Current Complaints Urge incontinence History of Current Condition Urinary urge incontinence that has worsened in past year. Urinary leaking after urge in sitting and leaks with transfers of various amounts. Prior Treatments and Tests Physical therapy for UI x 3, last was 3 yrs ago in [place] [facility]. Was taught breathing that was helpful. Assessment by Urologist. Future Testing and Treatments Planned None Treatment Goals Patient/Caregiver Goals Pt goal is to: control urine leakage when at home to make it to bathroom without leaking in presence of a stong urge. Prior Functional Status Baseline Function- Other Urinary leakage daily. Current Functional Impairments (Reported) Functional Limitations- Other Urinary leakage, wears pads and changes 8-10x/day. Personal Factors Other Personal Factors That May Effect Double masectomy with Therapy/Recovery reconstruction of L breast, then R breast using stomach muscles to rebuild L breast (L breast is larger than the R), rebuild of abdomen at same time. PT-OP-C Subjective Start: 02/16/23 18:07 Freq: Status: Active Protocol: Document 09/19/23 08:17 LRN (Rec: 09/19/23 09:03 LRN [id number]) OP-PT Subjective Patient Comments Patient Comments Incontinence 3/4ths better. A couple times blew it because waited too long. Uses a little, smaller pad. Patient Questionnaires Pelvic Pain and Urgency/Frequency Patient Symptom Scale Pelvic Pain Score 2 PT-OP-I Pelvic Floor Start: 02/16/23 18:07 Freq: Status: Active Protocol: Document 09/19/23 08:17 LRN (Rec: 09/19/23 09:03 LRN [id number]) Pelvic Floor Assessment Urine Other Urinary Symptoms Little dribbling, but almost gone. Dribbles walkkng to bathroom. If not paying attention to alarm, then will have a little more leakage. Leakage Size Small Other Leakage Causes Trigger with water running, but can control with deep breathing. Voiding Frequency 2.5 Nocturia 0 Pads Used In 24 Hours 1 Urine Pad Type Panty Liner Pelvic Clock Pelvic Clock Other Redness in Labia Minor and Labia majora. Prolapse Cystocele Grade 2 Rectocele Grade 2 Perineal Descent Resting Absent Bearing Absent Contraction Ability Voluntary Contraction Moderate Voluntary Relaxation Moderate Manual Muscle Testing Left 3 Manual Muscle Testing Right 3 Manual Muscle Testing Anterior 3 Manual Muscle Testing Posterior 3 Muscle Endurance (Seconds) 3 Number of Quick Contractions In 10 5 Seconds PT-OP-J Posture/Palpation/Skin Start: 02/16/23 18:07 Freq: Status: Active Protocol: Document 02/24/23 08:03 LRN (Rec: 02/24/23 11:16 LRN [id number]) Posture Evaluation Position Standing Head/C-Spine Posture Forward Head T-Spine Posture Flattened L-Spine Posture Increased Lordosis Shoulder Posture (R) Elevated Scapula Posture (R) Elevated Arm Posture (L) Internally Rotated,(R) Internally Rotated Pelvis Posture Anteriorly Tilted Weight Distribution Balanced Comments Posture Comments L breast low, straight spine. PT-OP-K Range of Motion Start: 02/16/23 18:07 Freq: Status: Active Protocol: Document 09/19/23 08:17 LRN (Rec: 09/19/23 09:03 LRN [id number]) Hip Goniometric Range of Motion Hip Right Passive Testing Position Supine Internal Rotation 30 External Rotation 50 Left Passive Testing Position Supine Internal Rotation 30 External Rotation 55 PT-OP-M Strength Start: 02/16/23 18:07 Freq: Status: Active Protocol: Document 02/24/23 08:03 LRN (Rec: 02/24/23 11:16 LRN [id number]) Trunk Strength Trunk Manual Muscle Testing Core Stabilization mild loss of trunk rotation stability/strength with MMT of LE's Hip Strength Hip Manual Muscle Testing Right Extension (S1) 3+ Fair+ Comments Normal strength except as indicated above. Left Extension (S1) 3 Fair Comments Normal strength except as indicated above. PT-OP-Q Treatments Start: 02/16/23 18:07 Freq: Status: Active Protocol: Document 09/19/23 08:17 LRN (Rec: 09/19/23 09:03 N [id number]) Therapeutic Exercises Supine Exercises Hip stretches Supine Exercise Name L Piriformis & Lateral hip, R Fig 4 Reps/Minutes 60 SH x 2 PROM taken Comments Extra time to review tolerated positions, cued R ankle below opp knee Deep Breathing Supine Exercise Name deep breathing Reps/Minutes 2' Comments Pt cued to slow breath, otherwise pt doing properly PF Long Hold contactions Supine Exercise Name PF long hold contractions for Vemg assessment Reps/Minutes 10 SH x 2 with rests between Comments Extra time PF Quick Contractions Supine Exercise Name PF quick contractions for Vemg assessment Reps/Minutes 10x 2 Comments Extra time taken for positioning. Other Exercises Transfers w/coordinated breathing Other Exercise Name Sit<>sup, sit<>stand, coordinating breath & PF contraction w/transfer Reps/Minutes 12x w/education and training throughout exercise. Comments Phys & v cuing throughout transfers. Self-Care/Home Management Treatment Education Other Education Discussed redness of pt's perineum and reviewed brielfy vulvar care with emphysis on cleansing rinse using water. PT-OP-T Assessment and Plan Start: 02/16/23 18:07 Freq: Status: Active Protocol: Document 09/19/23 08:17 LRN (Rec: 09/19/23 09:03 [facility] [id number]) Physical Therapy Assessment Goals Three Impairment Uses 8-10 urinary pads daily Short Term Goal (STG) Decrease use of urinary incontinence pads to 4-5/day 05/12/23: Using 4 pads daily. 07/28/23: Wears incontinence underwear, wears pad going out . 09/19/23: Uses 1 pad daily. STG Duration 04/16/23 (05/12/23: MET GOAL ) Dancing Instructor Goal (LTG) Pt will improve PF strength with decrease in urinary leakage to use of urinary incontinence pads 1-2x/day. 05/12/23: Using 4 pads daily. 06/23/23: Using 2-3 liner or moderate pads/day. Light leakage (like Tablespoon). 07/21/23: With use of watch to tell her to void, she is changing pads 1-2x/day and has been able to go without a pad 1x/week. LTG Duration 12 wks-08/12/23 (07/21/22: MET GOAL, using watch to remind pt to void) Two Impairment Urge urinary incontinence Impairment Urinary leakage in presence of strong urge & after transfers sit<>stand. Short Term Goal (STG) Pt will be educated in urinary delay technique and educated in normal voiding times and amounts and will modify behaviour to void on 1st or 2nd urinary urge. 03/10/23: Pt educated in urinary delay technique. 05/12/23: Pt educated in normal voiding time and has modified her behavious to void on the 1st or 2nd urge, except she sometimes forgets in a social gathering situation. STG Duration 03/03/23 (05/12/23: MET GOAL) Nursing Home Goal (LTG) Pt will be able to control urine leakage when at home to make it to bathroom without leaking in presence of a stong urge. Voiding time every 2- 3 hrs. 05/12/23: 8% of the time can make it to the bathroom. 06/23/23: 40% of time making it to the bathroom. 06/27/23: 75% of time making to the bathroom 07/21/23: 80% of time able to make it to bathroom and sit on toilet before voiding. 09/19/23: With deep breathing , 90% of time can make it to the bathroom without leakage to void. LTG Duration 12 wks-08/12/23 (09/19/23: MET GOAL) One Impairment Lacks HEP to control urinary leakage with urge and bowel leakage. Short Term Goal (STG) Pt educated in proper transfers to lessen core abdominal pressure. 03/10/23: Pt educated in proper transfer stand<>sit<> supine with core pressure management. STG Duration 03/10/23 (03/10/23: MET GOAL ) Dancing Instructor Goal (LTG) Pt will be independent in a self care HEP for PF/core (rot )/hip ext strengthening. 06/23/23: HEP: L Hip ER & lateral hip stretch; jp hip ER (fig 4) stretch. Pt forgot handouts, will issue next session. 07/28/23: I/S pt: 1) PF contractions in isolation, 2) add LE roll in/out with PF contraction for 10 sec long hold. LTG Duration 12 more wks-10/20/23 (09/17: MET GOAL) Assessment Summary Assessment Pt is an 83 yo female who initially presented with LIZA, grade 3 cystocele and rectocele, with PF weakness & decreased endurance of PF endurance. Her PF quick flick strength has improved greatly . Her PF long hold endurance strength is about the same with weakening felt after 3 secs, but a contraction felt throughout a 10 sec contraction. Cystocle and Rectocele is improved. Pt 90% improved, has met all her goals above and is ready for discharge to her HEP. Physical Therapy Plan Frequency and Duration Frequency of Treatment 1x/Week Duration of treatment (weeks) 12 Plan of Care Start Date 07/21/23 Plan of Care End Date 10/20/23 Discharge Physical Therapy Discharge Reasons Goals Met Discharge Comments Thank you for your referral.
== END 2023-09-26 07:57 | disposition home or self-care (01) ==
LOC: PHYS 08:15
PROVIDERS: Family Provider Internal Medicine; PCP Internal Medicine; Referring Provider Internal Medicine; Visit Provider Internal Medicine
DX: R32 Unspecified urinary incontinence (principal); R10.30 Lower abdominal pain, unspecified; M25.659 Stiffness of unspecified hip, not elsewhere classified; R15.2 Fecal urgency
CPT/HCPCS: 97110; 97112; 97162; 97535

== ENCOUNTER → 2024-01-02 11:36 | Outpatient (CLI) | payer MEDICARE, SELFPAY ==
[2024-01-02 13:19] LABS: Aspartate Aminotransferase 28 IU/L (14-36); BUN Creatinine Ratio 34.9 (6-22); Blood Urea Nitrogen 15 mg/dL (7-17); Calcium 8.8 mg/dL (8.4-10.2); Carbon Dioxide 28 mmol/L (22-32); Chloride 108 mmol/L (98-107); Cholesterol 151 mg/dL (140-199); Estimated Glomerular Filt Rate > 60 mL/min (>60); Glucose 96 mg/dL (80-110); HDL Cholesterol 67 mg/dL (40-60); HEMOLYSIS 65 (0-50); LDL Cholesterol Calculated 67 mg/dL (<100); Sodium 141 mmol/L (137-145); Triglycerides 85 mg/dL (35-150)
[2024-01-02 14:06] LABS: Vitamin B12 816 pg/mL (239-931)
== END ==
PROVIDERS: Family Provider Internal Medicine; PCP Internal Medicine; Referring Provider Internal Medicine; Visit Provider Internal Medicine
DX: E53.8 Deficiency of other specified B group vitamins (principal); E78.2 Mixed hyperlipidemia
CPT/HCPCS: 36415; 80048; 80061; 82607; 84450

== ENCOUNTER → 2024-09-18 10:02 | Outpatient (CLI) | payer MEDICARE, SELFPAY ==
--- NOTE | 2024-09-18 10:03 | DI.RAD.S_ITS ---
PROCEDURE: XR FOOT RT MIN 3V INDICATIONS: right foot pain / swelling TECHNIQUE: 3 views of the foot were acquired. COMPARISON: [facility], CR, XR FOOT RT MIN 3V, 01/04/2018, 16:26. FINDINGS: Bones: No fractures or dislocations. No suspicious bony lesions. No osseous erosions or periosteal reaction. 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 Plantar calcaneal bone spur. Soft tissues: No tibiotalar joint effusion. Achilles tendon appears normal. IMPRESSION: No acute bony abnormality. Dictated by: Milly Doherty MD, PhD on 09/18/2024 at 12:00 Approved by: Milly Doherty MD, PhD on 09/18/2024 at 12:02
== END ==
PROVIDERS: Family Provider Internal Medicine; PCP Internal Medicine; Referring Provider Internal Medicine; Visit Provider Internal Medicine
DX: M19.071 Primary osteoarthritis, right ankle and foot (principal); M77.31 Calcaneal spur, right foot; M79.671 Pain in right foot; M79.89 Other specified soft tissue disorders
CPT/HCPCS: 73630

== ENCOUNTER → 2024-10-23 11:26 | Outpatient (CLI) | payer MEDICARE, SELFPAY ==
[2024-10-23 12:43] LABS: Hematocrit 37.8 % (36-46); Hemoglobin 12.9 g/dL (12.0-16.0); Mean Corpuscular HGB Conc 34.2 % (30-36); Mean Corpuscular Hemoglobin 32.2 PG (26-34); Mean Corpuscular Volume 94.2 fL (80-100); Platelet Count 216 X10^3/uL (150-400); Red Blood Cell Count 4.01 X10^6/uL (4.0-5.2); Red Cell Distribution Width 13.6 % (11.6-14.8); White Blood Cell Count 4.1 X10^3/uL (4.5-11.0)
[2024-10-23 13:04] LABS: Alanine Aminotransferase 20 IU/L (<35); Albumin 4.2 g/dL (3.5-5.0); Albumin Globulin Ratio 1.8 (1.0-2.8); Alkaline Phosphatase 82 U/L (38-126); Aspartate Aminotransferase 24 IU/L (14-36); BUN Creatinine Ratio 31.7 (6-22); Bilirubin Total 0.6 mg/dL (0.2-1.3); Blood Urea Nitrogen 19 mg/dL (7-17); Calcium 9.3 mg/dL (8.4-10.2); Carbon Dioxide 27 mmol/L (22-32); Chloride 104 mmol/L (98-107); Estimated Glomerular Filt Rate > 60 mL/min (>60); Globulin 2.3 g/dL (1.7-4.1); Glucose 100 mg/dL (80-110); HEMOLYSIS < 15 (0-50); Potassium 4.3 mmol/L (3.4-5.1); Sodium 140 mmol/L (137-145); Total Protein 6.5 g/dL (6.3-8.2)
[2024-10-23 13:34] LABS: TSH w/ Reflex to FT4 0.51 uIU/mL (0.47-4.68)
== END ==
PROVIDERS: Family Provider Internal Medicine; PCP Internal Medicine; Referring Provider Internal Medicine; Visit Provider Internal Medicine
DX: R55 Syncope and collapse (principal); E78.2 Mixed hyperlipidemia
CPT/HCPCS: 36415; 80053; 84443; 85027

== ENCOUNTER → 2024-10-24 09:32 | Outpatient (CLI) | payer MEDICARE, SELFPAY ==
--- NOTE | 2024-10-24 09:39 | DI.RAD.S_ITS ---
PROCEDURE: XR FOOT RT MIN 3V INDICATIONS: PAIN IN FOOT TECHNIQUE: 3 views of the foot were acquired. COMPARISON: [facility], CR, XR FOOT RT MIN 3V, 09/18/2024, 10:00. FINDINGS: Bones: No fractures or dislocations. Moderate to severe 1st MTP joint osteoarthritic changes are noted with near complete loss of joint space, subchondral sclerosis and prominent dorsal marginal osteophyte formation concerning for hallux limitus. [id number] osteoarthritic changes throughout rest of the right foot is seen. Well-defined plantar calcaneal enthesophyte is noted. No suspicious bony lesions. Soft tissues: No tibiotalar joint effusion. Achilles tendon appears normal. 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 [id number] osteoarthritic changes throughout rest of the right foot. No acute fracture or dislocation. Well-defined plantar calcaneal enthesophyte. Dictated by: Milton Sorensen M.D. on 10/24/2024 at 18:20 Approved by: Milton Sorensen M.D. on 10/24/2024 at 18:22
== END ==
PROVIDERS: Family Provider Internal Medicine; PCP Internal Medicine; Referring Provider Podiatrist Foot & Ankle Surgery; Visit Provider Podiatrist Foot & Ankle Surgery
DX: M19.071 Primary osteoarthritis, right ankle and foot (principal); M77.31 Calcaneal spur, right foot; M79.671 Pain in right foot
CPT/HCPCS: 73630

== ENCOUNTER → 2024-12-11 09:09 | Outpatient (CLI) | payer MEDICARE, SELFPAY ==
[2024-12-11 10:36] LABS: Aspartate Aminotransferase 29 IU/L (14-36); Blood Urea Nitrogen 13 mg/dL (7-17); Calcium 9.6 mg/dL (8.4-10.2); Carbon Dioxide 28 mmol/L (22-32); Chloride 104 mmol/L (98-107); Cholesterol 162 mg/dL (140-199); Estimated Glomerular Filt Rate > 60 mL/min (>60); Glucose 100 mg/dL (70-99); HDL Cholesterol 68 mg/dL (40-60); HEMOLYSIS < 15 (0-50); LDL Cholesterol Calculated 78 mg/dL (<100); Potassium 4.2 mmol/L (3.4-5.1); Sodium 139 mmol/L (137-145); Triglycerides 78 mg/dL (35-150)
[2024-12-11 11:25] LABS: Vitamin B12 815 pg/mL (239-931)
== END ==
PROVIDERS: Family Provider Internal Medicine; PCP Internal Medicine; Referring Provider Internal Medicine; Visit Provider Internal Medicine
DX: I10 Essential (primary) hypertension (principal); E78.2 Mixed hyperlipidemia; E53.8 Deficiency of other specified B group vitamins
CPT/HCPCS: 36415; 80048; 80061; 82607; 84450

== ENCOUNTER → 2024-12-12 08:49 | Outpatient (CLI) | payer MEDICARE, SELFPAY ==
[2024-12-13 13:40] LABS: Fecal Immunochemical Test Negative (Negative)
== END ==
PROVIDERS: Family Provider Internal Medicine; PCP Internal Medicine; Referring Provider Internal Medicine; Visit Provider Internal Medicine
DX: Z12.11 Encounter for screening for malignant neoplasm of colon (principal)
CPT/HCPCS: 82274

== ENCOUNTER 2024-12-25 10:45 | Outpatient (RCR) | payer MEDICARE, SELFPAY ==
--- NOTE | 2024-11-21 17:16 | PT.OIE ---
Current Diagnoses Primary osteoarthritis, unspecified ankle and foot (11/21/24) Pain in right foot (11/21/24) Past Medical History (Last Reviewed 10/23/24 @ 11:16 by Gonzalo Rudolph MD) Age-related osteoporosis without current pathological fracture B12 deficiency Do not resuscitate Dyslipidemia Essential hypertension Hammertoe of right foot Hearing loss (~2007) History of breast cancer History of colonic polyps History of urinary incontinence Idiopathic polyneuropathy Inflammatory breast cancer (~1989) Lymphedema of upper extremity, bilateral Mixed hyperlipidemia Osteopenia Plantar fasciitis, right Primary osteoarthritis involving multiple joints Urinary incontinence Past Surgical History (Last Reviewed 10/23/24 @ 11:16 by Gonzalo Rudolph MD) Anesthesia H/O bilateral mastectomy History of mastectomy Visit Care Team Role Provider Type Gonzalo Rudolph MD Attending Provider Physician Family Provider Primary Care Provider Referring Provider Specialty: Internal Medicine Address: [address] [place] [address] Email: [email or web address] Physical Therapy Initial Evaluation PT-OP-A Visit Information Start: 11/21/24 16:00 Freq: Status: Active Protocol: Document 11/21/24 16:01 KW (Rec: 11/21/24 17:16 KW Laptop) Out-Patient Physical Therapy Visit Information Visit Information Visit Type Initial Evaluation Visit Start Time 16:15 Visit Stop Time 07:00 Visit Number 1 Evaluation Information Evaluation Date 11/21/24 PT-OP-B Current Condition Start: 11/21/24 16:00 Freq: Status: Active Protocol: Document 11/21/24 16:01 KW (Rec: 11/21/24 17:16 KW Laptop) Current Condition History of Current Condition Onset Date 10 + years with recent flare up Current Complaints R big toe pain, 3rd toe pain on R History of Current Condition patient returned from Boat trip in , noted increased R 1st and 3rd toe pain, redness, swelling. Had been doing some YOGA on a yoga mat, wearing flip flops. Otherwise feels good thru knees, hips, spine. Works out with [employer]. had work up with x- rays, has been seeing a passport application examiner. Is considering orthotics. She has a fishing trip to [place] planned this summer . Prior Functional Status Baseline Function- ADL's Independent Baseline Function- Mobility Independent PT-OP-C Subjective Start: 11/21/24 16:00 Freq: Status: Active Protocol: Document 11/21/24 16:01 KW (Rec: 11/21/24 17:16 KW Laptop) Patient Questionnaires Lower Extremity Functional Scale LEFS Impairment 1 to 19% Impaired (Score 63-79 ) OP-PT Pain Assessment Pain Assessment Grid Paper Pain Assessment Grid Completed Yes Location R foot Scale Used Numeric (0 - 10) Description Aching,Acute,Burning,Chronic, Cramping,Dull,Pinching,Pulling ,Sharp Frequency Frequent Pain Aggravating Factors ADL's,Activity,Exercise, Standing,Walking Other Pain Aggravating Factors during sleep Pain Alleviating Factors Cold,Heat,Medication,Massage, Splinting PT-OP-D Balance Start: 11/21/24 16:00 Freq: Status: Active Protocol: Document 11/21/24 16:01 KW (Rec: 11/21/24 17:16 KW Laptop) OP-PT Balance Assessment Standing Balance Static Standing Balance Ability Good Dynamic Standing Balance Ability Good Device Used none Standing Balance Comments noted toe gripping. able to relax toes, increase in ankle strategy Kim Fall Scale Copyright Permission PT-OP-E Functional Tests Start: 11/21/24 16:00 Freq: Status: Active Protocol: Document 11/21/24 16:01 KW (Rec: 11/21/24 17:16 KW Laptop) Functional Tests Tinetti Balance and Gait Assessment Balance Score Impairment Rating 1 to <20% Impaired (Score 13- 15) Gait Score Impairment Rating 1 to <20% Impaired (Score 10- 11) Composite Score Impairment Rating 1 to <20% Impaired (Score 23- 27) PT-OP-F Manual Assessment Start: 11/21/24 16:00 Freq: Status: Active Protocol: Document 11/21/24 16:01 KW (Rec: 11/21/24 17:16 KW Laptop) Manual Assessments Joint Mobility Assessment Joint Mobility Assessment restricted 1st ray R, limited ext/flexion of 1st MTP joint. Stiffness of R subtalar joint PT-OP-G Mobility & Gait Start: 11/21/24 16:00 Freq: Status: Active Protocol: Document 11/21/24 16:01 KW (Rec: 11/21/24 17:16 KW Laptop) OP Gait Assessment Gait Gait Assistance Required: Independent Assistive Devices Assistive Device None Comments Gait Comments limited to no arm swing. No big toe push off. once arm swing instructed, significant improved balance. PT-OP-H Neuro Start: 11/21/24 16:00 Freq: Status: Active Protocol: Document 11/21/24 16:01 KW (Rec: 11/21/24 17:16 KW Laptop) Sensation Evaluation Gross Sensation Gross Sensation WNL PT-OP-J Posture/Palpation/Skin Start: 11/21/24 16:00 Freq: Status: Active Protocol: Document 11/21/24 16:01 KW (Rec: 11/21/24 17:16 KW Laptop) Posture Evaluation Comments Posture Comments standing posture: R shoulder low, internal rotation B UE, increased WB thru R > L, toe gripping. PT-OP-K Range of Motion Start: 11/21/24 16:00 Freq: Status: Active Protocol: Document 11/21/24 16:01 KW (Rec: 11/21/24 17:16 KW Laptop) Ankle and Foot Goniometric Range of Motion Ankle and Foot Right Active Ankle/Foot ROM WFL No Testing Position Supine Dorsiflexion with Knee Flexed 5 Dorsiflexion with Knee Extended 0 PT-OP-L Special Tests Start: 11/21/24 16:00 Freq: Status: Active Protocol: Document 11/21/24 16:01 KW (Rec: 11/21/24 17:16 KW Laptop) Special Tests Foot/Ankle Special Tests Peroneal Subluxation Test Results (+) R PT-OP-M Strength Start: 11/21/24 16:00 Freq: Status: Active Protocol: Document 11/21/24 16:01 KW (Rec: 11/21/24 17:16 KW Laptop) Ankle/Foot Strength Ankle and Foot Manual Muscle Testing Right Dorsiflexion (L4) 4+ Good+ Plantarflexion (S1) 4 Good Inversion 4 Good Eversion (S1) 4+ Good+ Toe Strength Toe Manual Muscle Testing Right Great Toe Flexion 4 Good Extension 4 Good Comments however, limited ROM PT-OP-Q Treatments Start: 11/21/24 16:00 Freq: Status: Active Protocol: Document 11/21/24 16:01 KW (Rec: 11/21/24 17:16 KW Laptop) Therapeutic Exercises Standing Exercises standing gastroc Standing Exercise Name standing gastroc soleus stretch Side bilateral Equipment Used STEFF Comments subtalar neutral Gait Training Gait Activity arm swing Comments gait training: cues for heel to toe push off, arm swing, head and eyes up Neuro Re-Education Treatment Balance Activities HEP Balance Comments HO issued for HEP balance: narrow and tandem stance with head turns. IN Corner for safety Self-Care/Home Management Treatment Education Patient Education Body Mechanics,Fall Risk,Home Exercise Program,Joint Protection,Pain Management, Posture Other Education ed on epsom salt soaks brushing bottom of feet with luffa sponge for stimulation use of ice consider blood work to r/o gout PT-OP-T Assessment and Plan Start: 11/21/24 16:00 Freq: Status: Active Protocol: Document 11/21/24 16:01 KW (Rec: 11/21/24 17:16 KW Laptop) Physical Therapy Assessment Rehab Potential Rehabilitation Potential Excellent Evaluation Complexity Number of Personal Factors/Comorbidities 1-2 Number of Body Systems Impaired 1-2 Clinical Presentation at Evaluation Stable Impairments Impairments Activity Tolerance,Balance, Functional Activities, Functional Mobility,Gait,Pain, Posture,ROM,Soft Tissue Mobility,Strength Goals Two Impairment LEFS score 72% Short Term Goal (STG) improve LEFS score to 90 STG Duration 6 weeks One Impairment lack of HEP Short Term Goal (STG) patient is indep with HEP 6 weeks time STG Duration 6 Assessment Summary Assessment pleasant active 84 yo female with R 1st ray hallux valgus. She will benefit from skilled PT to address pain, deficits in ROM, balance, flexibility in order to reduce stress to 1st ray and maximize function. Anticipate she will be very compliant. Physical Therapy Plan Frequency and Duration Frequency of Treatment 2x/Week Duration of treatment (weeks) 6 Plan of Care Start Date 11/21/24 Plan of Care End Date 02/21/25 Therapeutic Interventions Therapeutic Interventions Balance Training,Gait Training ,Home Exercise Program Next Visit Focus/Plan Next Note Type Treatment Note Next Visit Plan stationary bike balance training ankle flexibility start toes/towel/marble activity
--- NOTE | 2024-11-21 17:17 | PT.OPPOC ---
Physical, Occupational & Speech Therapy At [facility] Current Diagnoses Primary osteoarthritis, unspecified ankle and foot (11/21/24) Pain in right foot (11/21/24) Visit Care Team Role Provider Type Gonzalo Rudolph MD Attending Provider Physician Family Provider Primary Care Provider Referring Provider Specialty: Internal Medicine Address: [address] [place] [address], [facility] Email: [email or web address] Plan Of Care PT-OP-B Current Condition Start: 11/21/24 16:00 Freq: Status: Active Protocol: Document 11/21/24 16:01 KW (Rec: 11/21/24 17:16 KW Laptop) Current Condition History of Current Condition Onset Date 10 + years with recent flare up Current Complaints R big toe pain, 3rd toe pain on R History of Current Condition patient returned from Boat trip in , noted increased R 1st and 3rd toe pain, redness, swelling. Had been doing some YOGA on a yoga mat, wearing flip flops. Otherwise feels good thru knees, hips, spine. Works out with [employer]. had work up with x- rays, has been seeing a [employer] engineer. Is considering orthotics. She has a fishing trip to [place] planned this summer . Prior Functional Status Baseline Function- ADL's Independent Baseline Function- Mobility Independent PT-OP-T Assessment and Plan Start: 11/21/24 16:00 Freq: Status: Active Protocol: Document 11/21/24 16:01 KW (Rec: 11/21/24 17:16 KW Laptop) Physical Therapy Assessment Rehab Potential Rehabilitation Potential Excellent Evaluation Complexity Number of Personal Factors/Comorbidities 1-2 Number of Body Systems Impaired 1-2 Clinical Presentation at Evaluation Stable Impairments Impairments Activity Tolerance,Balance, Functional Activities, Functional Mobility,Gait,Pain, Posture,ROM,Soft Tissue Mobility,Strength Goals Two Impairment LEFS score 72% Short Term Goal (STG) improve LEFS score to 90 STG Duration 6 weeks One Impairment lack of HEP Short Term Goal (STG) patient is indep with HEP 6 weeks time STG Duration 6 Assessment Summary Assessment pleasant active 84 yo female with R 1st ray hallux valgus. She will benefit from skilled PT to address pain, deficits in ROM, balance, flexibility in order to reduce stress to 1st ray and maximize function. Anticipate she will be very compliant. Physical Therapy Plan Frequency and Duration Frequency of Treatment 2x/Week Duration of treatment (weeks) 6 Plan of Care Start Date 11/21/24 Plan of Care End Date 02/21/25 Therapeutic Interventions Therapeutic Interventions Balance Training,Gait Training ,Home Exercise Program Next Visit Focus/Plan Next Note Type Treatment Note Next Visit Plan stationary bike balance training ankle flexibility start toes/towel/marble activity Plan of Care Dates Plan of Care Start Date 11/21/24 Plan of Care End Date 02/21/25 Electronically Signed by: Yahaira Burnham, PT 11/21/24 9216 If you are in agreement with this Plan of Care, please return a signed and dated copy. I have reviewed this Plan of Care and certify that the skilled therapy services above are required to meet the patient?s needs. Physician Signature Date Printed Name and Credentials Clinical Instructor Signature Printed Name and Credentials
--- NOTE | 2024-11-27 11:31 | PT.OTN ---
Current Diagnoses Primary osteoarthritis, unspecified ankle and foot (11/27/24) Pain in right foot (11/27/24) Physical Therapy Treatment Note PT-OP-A Visit Information Start: 11/21/24 16:00 Freq: Status: Active Protocol: Document 11/27/24 10:56 KW (Rec: 11/27/24 11:26 KW Laptop) Out-Patient Physical Therapy Visit Information Visit Information Visit Type Treatment Note Visit Start Time 10:45 Visit Stop Time 11:30 Visit Number 2 Evaluation Information Evaluation Date 11/21/24 Precautions Precautions none PT-OP-B Current Condition Start: 11/21/24 16:00 Freq: Status: Active Protocol: Document 11/21/24 16:01 KW (Rec: 11/21/24 17:16 KW Laptop) Current Condition History of Current Condition Onset Date 10 + years with recent flare up Current Complaints R big toe pain, 3rd toe pain on R History of Current Condition patient returned from Boat trip in , noted increased R 1st and 3rd toe pain, redness, swelling. Had been doing some YOGA on a yoga mat, wearing flip flops. Otherwise feels good thru knees, hips, spine. Works out with [employer] program. 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 Is considering orthotics. She has a fishing trip to [place] planned this summer . Prior Functional Status Baseline Function- ADL's Independent Baseline Function- Mobility Independent PT-OP-C Subjective Start: 11/21/24 16:00 Freq: Status: Active Protocol: Document 11/27/24 10:56 KW (Rec: 11/27/24 11:31 KW Laptop) OP-PT Subjective Patient Comments Patient Comments has noticed better balance with arm swing is considering back to [place] for orth[place] wondering of epsom salt soaks would be helpful [employer] 3 x a week uses trekking poles for walks and hikes with hiking group Patient Reported Progress Improving PT-OP-D Balance Start: 11/21/24 16:00 Freq: Status: Active Protocol: Document 11/21/24 16:01 KW (Rec: 11/21/24 17:16 KW Laptop) OP-PT Balance Assessment Standing Balance Static Standing Balance Ability Good Dynamic Standing Balance Ability Good Device Used none Standing Balance Comments noted toe gripping. able to relax toes, increase in ankle strategy Judy Fall Scale Copyright Permission PT-OP-E Functional Tests Start: 11/21/24 16:00 Freq: Status: Active Protocol: Document 11/21/24 16:01 KW (Rec: 11/21/24 17:16 KW Laptop) Functional Tests Tinetti Balance and Gait Assessment Balance Score Impairment Rating 1 to <20% Impaired (Score 13- 15) Gait Score Impairment Rating 1 to <20% Impaired (Score 10- 11) Composite Score Impairment Rating 1 to <20% Impaired (Score 23- 27) PT-OP-F Manual Assessment Start: 11/21/24 16:00 Freq: Status: Active Protocol: Document 11/21/24 16:01 KW (Rec: 11/21/24 17:16 KW Laptop) Manual Assessments Joint Mobility Assessment Joint Mobility Assessment restricted 1st ray R, limited ext/flexion of 1st MTP joint. Stiffness of R subtalar joint PT-OP-G Mobility & Gait Start: 11/21/24 16:00 Freq: Status: Active Protocol: Document 11/21/24 16:01 KW (Rec: 11/21/24 17:16 KW Laptop) OP Gait Assessment Gait Gait Assistance Required: Independent Assistive Devices Assistive Device None Comments Gait Comments limited to no arm swing. No big toe push off. once arm swing instructed, significant improved balance. PT-OP-H Neuro Start: 11/21/24 16:00 Freq: Status: Active Protocol: Document 11/21/24 16:01 KW (Rec: 11/21/24 17:16 KW Laptop) Sensation Evaluation Gross Sensation Gross Sensation WNL PT-OP-J Posture/Palpation/Skin Start: 11/21/24 16:00 Freq: Status: Active Protocol: Document 11/21/24 16:01 KW (Rec: 11/21/24 17:16 KW Laptop) Posture Evaluation Comments Posture Comments standing posture: R shoulder low, internal rotation B UE, increased WB thru R > L, toe gripping. PT-OP-K Range of Motion Start: 11/21/24 16:00 Freq: Status: Active Protocol: Document 11/21/24 16:01 KW (Rec: 11/21/24 17:16 KW Laptop) Ankle and Foot Goniometric Range of Motion Ankle and Foot Right Active Ankle/Foot ROM WFL No Testing Position Supine Dorsiflexion with Knee Flexed 5 Dorsiflexion with Knee Extended 0 PT-OP-L Special Tests Start: 11/21/24 16:00 Freq: Status: Active Protocol: Document 11/21/24 16:01 KW (Rec: 11/21/24 17:16 KW Laptop) Special Tests Foot/Ankle Special Tests Peroneal Subluxation Test Results (+) R PT-OP-M Strength Start: 11/21/24 16:00 Freq: Status: Active Protocol: Document 11/21/24 16:01 KW (Rec: 11/21/24 17:16 KW Laptop) Ankle/Foot Strength Ankle and Foot Manual Muscle Testing Right Dorsiflexion (L4) 4+ Good+ Plantarflexion (S1) 4 Good Inversion 4 Good Eversion (S1) 4+ Good+ Toe Strength Toe Manual Muscle Testing Right Great Toe Flexion 4 Good Extension 4 Good Comments however, limited ROM PT-OP-Q Treatments Start: 11/21/24 16:00 Freq: Status: Active Protocol: Document 11/27/24 10:56 KW (Rec: 11/27/24 11:26 KW Laptop) Cardio Equipment Recumbent Elliptical ([employer]) Duration (Minutes) 6 Resistance 2 Therapeutic Exercises Standing Exercises standing gastroc Standing Exercise Name standing gastroc soleus stretch Side bilateral Equipment Used STEFF Comments subtalar neutral Gait Training Gait Activity stairs Comments cues for alignment, press thru lead heel taping to heel for subtalar neutral alignment arm swing Comments gait training: cues for heel to toe push off, arm swing, head and eyes up Neuro Re-Education Treatment Balance Activities HEP Balance Details standing balance, narrow FLAQUITO, tandem stance Surface flat and foam pad Comments HO issued for HEP balance: narrow and tandem stance with head turns. IN Corner for safety Self-Care/Home Management Treatment Education Patient Education Body Mechanics,Fall Risk,Home Exercise Program,Joint Protection,Pain Management, Posture Other Education ed on epsom salt soaks brushing bottom of feet with luffa sponge for stimulation use of ice consider blood work to r/o gout PT-OP-T Assessment and Plan Start: 11/21/24 16:00 Freq: Status: Active Protocol: Document 11/27/24 10:56 KW (Rec: 11/27/24 11:26 KW Laptop) Physical Therapy Assessment Rehab Potential Rehabilitation Potential Excellent Evaluation Complexity Number of Personal Factors/Comorbidities 1-2 Number of Body Systems Impaired 1-2 Clinical Presentation at Evaluation Stable Impairments Impairments Activity Tolerance,Balance, Functional Activities, Functional Mobility,Gait,Pain, Posture,ROM,Soft Tissue Mobility,Strength Goals Two Impairment LEFS score 72% Short Term Goal (STG) improve LEFS score to 90 STG Duration 6 weeks One Impairment lack of HEP Short Term Goal (STG) patient is indep with HEP 6 weeks time STG Duration 6 Assessment Summary Assessment improved balance with arm swing during gait cycle, excellent participation and compliance. 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 Physical Therapy Plan Frequency and Duration Frequency of Treatment 2x/Week Duration of treatment (weeks) 6 Plan of Care Start Date 11/21/24 Plan of Care End Date 02/21/25 Therapeutic Interventions Therapeutic Interventions Balance Training,Gait Training ,Home Exercise Program Next Visit Focus/Plan Next Note Type Treatment Note Next Visit Plan stationary bike balance training ankle flexibility toes/towel/marble activity
--- NOTE | 2024-12-04 11:25 | PT.OTN ---
Current Diagnoses Primary osteoarthritis, unspecified ankle and foot (12/04/24) Pain in right foot (12/04/24) Physical Therapy Treatment Note PT-OP-A Visit Information Start: 11/21/24 16:00 Freq: Status: Active Protocol: Document 12/04/24 10:55 KW (Rec: 12/04/24 11:25 KW Laptop) Out-Patient Physical Therapy Visit Information Visit Information Visit Type Treatment Note Visit Start Time 10:45 Visit Stop Time 11:25 Visit Number 3 Evaluation Information Evaluation Date 11/21/24 Precautions Precautions none PT-OP-B Current Condition Start: 11/21/24 16:00 Freq: Status: Active Protocol: Document 11/21/24 16:01 KW (Rec: 11/21/24 17:16 KW Laptop) Current Condition History of Current Condition Onset Date 10 + years with recent flare up Current Complaints R big toe pain, 3rd toe pain on R History of Current Condition patient returned from Boat trip in , noted increased R 1st and 3rd toe pain, redness, swelling. Had been doing some YOGA on a yoga mat, wearing flip flops. Otherwise feels good thru knees, hips, spine. Works out with [employer]. had work up with x- rays, has been seeing a pharmacogeneticist. Is considering orthotics. She has a fishing trip to [place] planned this summer . Prior Functional Status Baseline Function- ADL's Independent Baseline Function- Mobility Independent PT-OP-C Subjective Start: 11/21/24 16:00 Freq: Status: Active Protocol: Document 12/04/24 10:55 KW (Rec: 12/04/24 11:25 KW Laptop) OP-PT Subjective Patient Comments Patient Comments feeling much better, notices her heel hit the ground and improved balance Patient Reported Progress Improving OP-PT Pain Assessment Location R foot Scale Used Numeric (0 - 10) Description Aching,Acute,Burning,Chronic, Cramping,Dull,Pinching,Pulling ,Sharp Frequency Frequent Pain Aggravating Factors ADL's,Activity,Exercise, Standing,Walking Other Pain Aggravating Factors during sleep Pain Alleviating Factors Cold,Heat,Medication,Massage, Splinting PT-OP-D Balance Start: 11/21/24 16:00 Freq: Status: Active Protocol: Document 11/21/24 16:01 KW (Rec: 11/21/24 17:16 KW Laptop) OP-PT Balance Assessment Standing Balance Static Standing Balance Ability Good Dynamic Standing Balance Ability Good Device Used none Standing Balance Comments noted toe gripping. able to relax toes, increase in ankle strategy Kim Fall Scale Copyright Permission PT-OP-E Functional Tests Start: 11/21/24 16:00 Freq: Status: Active Protocol: Document 11/21/24 16:01 KW (Rec: 11/21/24 17:16 KW Laptop) Functional Tests Tinetti Balance and Gait Assessment Balance Score Impairment Rating 1 to <20% Impaired (Score 13- 15) Gait Score Impairment Rating 1 to <20% Impaired (Score 10- 11) Composite Score Impairment Rating 1 to <20% Impaired (Score 23- 27) PT-OP-F Manual Assessment Start: 11/21/24 16:00 Freq: Status: Active Protocol: Document 11/21/24 16:01 KW (Rec: 11/21/24 17:16 KW Laptop) Manual Assessments Joint Mobility Assessment Joint Mobility Assessment restricted 1st ray R, limited ext/flexion of 1st MTP joint. Stiffness of R subtalar joint PT-OP-G Mobility & Gait Start: 11/21/24 16:00 Freq: Status: Active Protocol: Document 11/21/24 16:01 KW (Rec: 11/21/24 17:16 KW Laptop) OP Gait Assessment Gait Gait Assistance Required: Independent Assistive Devices Assistive Device None Comments Gait Comments limited to no arm swing. No big toe push off. once arm swing instructed, significant improved balance. PT-OP-H Neuro Start: 11/21/24 16:00 Freq: Status: Active Protocol: Document 11/21/24 16:01 KW (Rec: 11/21/24 17:16 KW Laptop) Sensation Evaluation Gross Sensation Gross Sensation WNL PT-OP-J Posture/Palpation/Skin Start: 11/21/24 16:00 Freq: Status: Active Protocol: Document 11/21/24 16:01 KW (Rec: 11/21/24 17:16 KW Laptop) Posture Evaluation Comments Posture Comments standing posture: R shoulder low, internal rotation B UE, increased WB thru R > L, toe gripping. PT-OP-K Range of Motion Start: 11/21/24 16:00 Freq: Status: Active Protocol: Document 11/21/24 16:01 KW (Rec: 11/21/24 17:16 KW Laptop) Ankle and Foot Goniometric Range of Motion Ankle and Foot Right Active Ankle/Foot ROM WFL No Testing Position Supine Dorsiflexion with Knee Flexed 5 Dorsiflexion with Knee Extended 0 PT-OP-L Special Tests Start: 11/21/24 16:00 Freq: Status: Active Protocol: Document 11/21/24 16:01 KW (Rec: 11/21/24 17:16 KW Laptop) Special Tests Foot/Ankle Special Tests Peroneal Subluxation Test Results (+) R PT-OP-M Strength Start: 11/21/24 16:00 Freq: Status: Active Protocol: Document 11/21/24 16:01 KW (Rec: 11/21/24 17:16 KW Laptop) Ankle/Foot Strength Ankle and Foot Manual Muscle Testing Right Dorsiflexion (L4) 4+ Good+ Plantarflexion (S1) 4 Good Inversion 4 Good Eversion (S1) 4+ Good+ Toe Strength Toe Manual Muscle Testing Right Great Toe Flexion 4 Good Extension 4 Good Comments however, limited ROM PT-OP-Q Treatments Start: 11/21/24 16:00 Freq: Status: Active Protocol: Document 12/04/24 10:55 KW (Rec: 12/04/24 11:25 KW Laptop) Cardio Equipment Recumbent Elliptical ([employer]) Duration (Minutes) 6 Resistance 2 Therapeutic Exercises Standing Exercises standing gastroc Standing Exercise Name standing gastroc soleus stretch Side bilateral Equipment Used STEFF Comments subtalar neutral Gait Training Gait Activity stairs Comments cues for alignment, press thru lead heel taping to heel for subtalar neutral alignment arm swing Comments gait training: cues for heel to toe push off, arm swing, head and eyes up Neuro Re-Education Treatment Balance Activities hurdles Details hurdles Comments step over AP, ML cues to slow down, try not to hold on BOSU Details BOSU Surface black side Comments wt shifting AP, ML, head turns , mini squats HEP Balance Details standing balance, narrow FLAQUITO, tandem stance Surface flat and foam pad Comments HO issued for HEP balance: narrow and tandem stance with head turns. IN Corner for safety Self-Care/Home Management Treatment Education Patient Education Body Mechanics,Fall Risk,Home Exercise Program,Joint Protection,Pain Management, Posture Other Education ed on epsom salt soaks brushing bottom of feet with luffa sponge for stimulation use of ice consider blood work to r/o gout PT-OP-T Assessment and Plan Start: 11/21/24 16:00 Freq: Status: Active Protocol: Document 12/04/24 10:55 KW (Rec: 12/04/24 11:25 KW Laptop) Physical Therapy Assessment Rehab Potential Rehabilitation Potential Excellent Impairments Impairments Activity Tolerance,Balance, Functional Activities, Functional Mobility,Gait,Pain, Posture,ROM,Soft Tissue Mobility,Strength Goals Two Impairment LEFS score 72% Short Term Goal (STG) improve LEFS score to 90 STG Duration 6 weeks One Impairment lack of HEP Short Term Goal (STG) patient is indep with HEP 6 weeks time STG Duration 6 Assessment Summary Assessment excellent participation, progression onto BOSU to simulate travel activities of on/off boats, kayaks, paddle boards. Physical Therapy Plan Frequency and Duration Frequency of Treatment 2x/Week Duration of treatment (weeks) 6 Plan of Care Start Date 11/21/24 Plan of Care End Date 02/21/25 Therapeutic Interventions Therapeutic Interventions Balance Training,Gait Training ,Home Exercise Program Next Visit Focus/Plan Next Note Type Treatment Note Next Visit Plan stationary bike balance training ankle flexibility toes/towel/marble activity
--- NOTE | 2024-12-11 11:32 | PT.OTN ---
Current Diagnoses Primary osteoarthritis, unspecified ankle and foot (12/11/24) Pain in right foot (12/11/24) Physical Therapy Treatment Note PT-OP-A Visit Information Start: 11/21/24 16:00 Freq: Status: Active Protocol: Document 12/11/24 10:49 KW (Rec: 12/11/24 11:32 KW Laptop) Out-Patient Physical Therapy Visit Information Visit Information Visit Type Treatment Note Visit Start Time 10:45 Visit Stop Time 11:30 Visit Number 4/12, ends 01/03/2025, [facility] Evaluation Information Evaluation Date 11/21/24 Precautions Precautions none PT-OP-B Current Condition Start: 11/21/24 16:00 Freq: Status: Active Protocol: Document 11/21/24 16:01 KW (Rec: 11/21/24 17:16 KW Laptop) Current Condition History of Current Condition Onset Date 10 + years with recent flare up Current Complaints R big toe pain, 3rd toe pain on R History of Current Condition patient returned from Boat trip in , noted increased R 1st and 3rd toe pain, redness, swelling. Had been doing some YOGA on a yoga mat, wearing flip flops. Otherwise feels good thru knees, hips, spine. Works out with [employer]. had work up with x- rays, has been seeing a neurology physician. Is considering orthotics. She has a fishing trip to [place] planned this summer . Prior Functional Status Baseline Function- ADL's Independent Baseline Function- Mobility Independent PT-OP-C Subjective Start: 11/21/24 16:00 Freq: Status: Active Protocol: Document 12/11/24 10:49 KW (Rec: 12/11/24 11:32 KW Laptop) OP-PT Subjective Patient Comments Patient Comments saw neurology physician, off the shelf orthotics. He wants her to have surgery to correct 1st/ 2nd ray. Patient Reported Progress Improving OP-PT Pain Assessment Location R foot Scale Used Numeric (0 - 10) Description Aching,Acute,Burning,Chronic, Cramping,Dull,Pinching,Pulling ,Sharp Frequency Frequent Pain Aggravating Factors ADL's,Activity,Exercise, Standing,Walking Other Pain Aggravating Factors during sleep Pain Alleviating Factors Cold,Heat,Medication,Massage, Splinting PT-OP-D Balance Start: 11/21/24 16:00 Freq: Status: Active Protocol: Document 11/21/24 16:01 KW (Rec: 11/21/24 17:16 KW Laptop) OP-PT Balance Assessment Standing Balance Static Standing Balance Ability Good Dynamic Standing Balance Ability Good Device Used none Standing Balance Comments noted toe gripping. able to relax toes, increase in ankle strategy Kim Fall Scale Copyright Permission PT-OP-E Functional Tests Start: 11/21/24 16:00 Freq: Status: Active Protocol: Document 11/21/24 16:01 KW (Rec: 11/21/24 17:16 KW Laptop) Functional Tests Tinetti Balance and Gait Assessment Balance Score Impairment Rating 1 to <20% Impaired (Score 13- 15) Gait Score Impairment Rating 1 to <20% Impaired (Score 10- 11) Composite Score Impairment Rating 1 to <20% Impaired (Score 23- 27) PT-OP-F Manual Assessment Start: 11/21/24 16:00 Freq: Status: Active Protocol: Document 11/21/24 16:01 KW (Rec: 11/21/24 17:16 KW Laptop) Manual Assessments Joint Mobility Assessment Joint Mobility Assessment restricted 1st ray R, limited ext/flexion of 1st MTP joint. Stiffness of R subtalar joint PT-OP-G Mobility & Gait Start: 11/21/24 16:00 Freq: Status: Active Protocol: Document 11/21/24 16:01 KW (Rec: 11/21/24 17:16 KW Laptop) OP Gait Assessment Gait Gait Assistance Required: Independent Assistive Devices Assistive Device None Comments Gait Comments limited to no arm swing. No big toe push off. once arm swing instructed, significant improved balance. PT-OP-H Neuro Start: 11/21/24 16:00 Freq: Status: Active Protocol: Document 11/21/24 16:01 KW (Rec: 11/21/24 17:16 KW Laptop) Sensation Evaluation Gross Sensation Gross Sensation WNL PT-OP-J Posture/Palpation/Skin Start: 11/21/24 16:00 Freq: Status: Active Protocol: Document 11/21/24 16:01 KW (Rec: 11/21/24 17:16 KW Laptop) Posture Evaluation Comments Posture Comments standing posture: R shoulder low, internal rotation B UE, increased WB thru R > L, toe gripping. PT-OP-K Range of Motion Start: 11/21/24 16:00 Freq: Status: Active Protocol: Document 11/21/24 16:01 KW (Rec: 11/21/24 17:16 KW Laptop) Ankle and Foot Goniometric Range of Motion Ankle and Foot Right Active Ankle/Foot ROM WFL No Testing Position Supine Dorsiflexion with Knee Flexed 5 Dorsiflexion with Knee Extended 0 PT-OP-L Special Tests Start: 11/21/24 16:00 Freq: Status: Active Protocol: Document 11/21/24 16:01 KW (Rec: 11/21/24 17:16 KW Laptop) Special Tests Foot/Ankle Special Tests Peroneal Subluxation Test Results (+) R PT-OP-M Strength Start: 11/21/24 16:00 Freq: Status: Active Protocol: Document 11/21/24 16:01 KW (Rec: 11/21/24 17:16 KW Laptop) Ankle/Foot Strength Ankle and Foot Manual Muscle Testing Right Dorsiflexion (L4) 4+ Good+ Plantarflexion (S1) 4 Good Inversion 4 Good Eversion (S1) 4+ Good+ Toe Strength Toe Manual Muscle Testing Right Great Toe Flexion 4 Good Extension 4 Good Comments however, limited ROM PT-OP-Q Treatments Start: 11/21/24 16:00 Freq: Status: Active Protocol: Document 12/11/24 10:49 KW (Rec: 12/11/24 11:32 KW Laptop) Cardio Equipment Recumbent Elliptical ([employer]) Duration (Minutes) 6 Resistance 2 Therapeutic Exercises Supine Exercises tennis ball to hip Supine Exercise Name bent knee fall out over tennis ball Reps/Minutes x 1 min Comments she felt good relief of tight R hip hip stretch Supine Exercise Name R hip piriformis and strap hamstring nerve glide, handout issued Reps/Minutes 30 to 60 sec Standing Exercises standing gastroc Standing Exercise Name standing gastroc soleus stretch Side bilateral Equipment Used STEFF Comments subtalar neutral Gait Training Gait Activity stairs Comments cues for alignment, press thru lead heel taping to heel for subtalar neutral alignment arm swing Comments gait training: cues for heel to toe push off, arm swing, head and eyes up Neuro Re-Education Treatment Balance Activities hurdles Details hurdles Comments step over AP, ML cues to slow down, try not to hold on BOSU Details BOSU Surface black side Comments wt shifting AP, ML, head turns , mini squats HEP Balance Details standing balance, narrow FLAQUITO, tandem stance Surface flat and foam pad Comments HO issued for HEP balance: narrow and tandem stance with head turns. IN Corner for safety Other Activities shoe heel lock Comments shoe lacing technique for stability of calcaneus in shoe Self-Care/Home Management Treatment Education Patient Education Body Mechanics,Fall Risk,Home Exercise Program,Joint Protection,Pain Management, Posture Other Education ed on epsom salt soaks brushing bottom of feet with luffa sponge for stimulation use of ice consider blood work to r/o gout PT-OP-T Assessment and Plan Start: 11/21/24 16:00 Freq: Status: Active Protocol: Document 12/11/24 10:49 KW (Rec: 12/11/24 11:32 KW Laptop) Physical Therapy Assessment Rehab Potential Rehabilitation Potential Excellent Evaluation Complexity Number of Personal Factors/Comorbidities 1-2 Number of Body Systems Impaired 1-2 Clinical Presentation at Evaluation Stable Impairments Impairments Activity Tolerance,Balance, Functional Activities, Functional Mobility,Gait,Pain, Posture,ROM,Soft Tissue Mobility,Strength Goals Two Impairment LEFS score 72% Short Term Goal (STG) improve LEFS score to 90 STG Duration 6 weeks One Impairment lack of HEP Short Term Goal (STG) patient is indep with HEP 6 weeks time STG Duration 6 Assessment Summary Assessment New balance shoes tend to throw her off lateral. Will give her shoe recommendations next visit. Good response to heel lock shoe lacing and hip mobility ther-ex to help improve arthrokinematics of R hip, relieve stress off of nerve to foot. making great gains with mobilitly, balance and gait. Physical Therapy Plan Frequency and Duration Frequency of Treatment 2x/Week Duration of treatment (weeks) 6 Plan of Care Start Date 11/21/24 Plan of Care End Date 02/21/25 Therapeutic Interventions Therapeutic Interventions Balance Training,Gait Training ,Home Exercise Program Next Visit Focus/Plan Next Note Type Treatment Note Next Visit Plan stationary bike balance training ankle flexibility toes/towel/marble activity
--- NOTE | 2024-12-18 11:37 | PT.OTN ---
Current Diagnoses Primary osteoarthritis, unspecified ankle and foot (12/18/24) Pain in right foot (12/18/24) Physical Therapy Treatment Note PT-OP-A Visit Information Start: 11/21/24 16:00 Freq: Status: Active Protocol: Document 12/18/24 09:43 KW (Rec: 12/18/24 11:34 KW Laptop) Out-Patient Physical Therapy Visit Information Visit Information Visit Type Progress Note Visit Start Time 10:45 Visit Stop Time 11:30 Visit Number 412, ends 01/03/2025, [facility] Evaluation Information Evaluation Date 11/21/24 Precautions Precautions none PT-OP-B Current Condition Start: 11/21/24 16:00 Freq: Status: Active Protocol: Document 11/21/24 16:01 KW (Rec: 11/21/24 17:16 KW Laptop) Current Condition History of Current Condition Onset Date 10 + years with recent flare up Current Complaints R big toe pain, 3rd toe pain on R History of Current patient returned from Boat trip in , noted increased Condition R 1st and 3rd toe pain, redness, swelling. Had been doing some YOGA on a yoga mat, wearing flip flops. Otherwise feels good thru knees, hips, spine. Works out with [employer]. had work up with x-rays, has been seeing a gun numberer. Is considering orthotics . She has a fishing trip to [place] planned this summer. Prior Functional Status Baseline Function- Independent ADL's Baseline Function- Independent Mobility PT-OP-C Subjective Start: 11/21/24 16:00 Freq: Status: Active Protocol: Document 12/18/24 09:43 KW (Rec: 12/18/24 11:34 KW Laptop) OP-PT Subjective Patient Comments Patient Comments brings in different shoes, feels she is more balanced. ASICs hip feels so much better with trigger point tennis ball trick went hiking over w/e with trekking poles. 2 HRS Patient Reported Improving Progress Patient Questionnaires Lower Extremity Functional Scale LEFS Score 60 LEFS Impairment 1 to 19% Impaired (Score 63-79) OP-PT Pain Assessment Pain Assessment Grid Paper Pain Yes Assessment Grid Completed Location R foot Intensity 0 Scale Used Numeric (0 - 10) Description Aching,Acute,Burning,Chronic,Cramping,Dull,Pinching, Pulling,Sharp Frequency Intermittent Pain Aggravating ADL's,Activity,Exercise,Standing,Walking Factors Other Pain during sleep Aggravating Factors Pain Alleviating Cold,Heat,Medication,Massage,Splinting Factors PT-OP-D Balance Start: 11/21/24 16:00 Freq: Status: Active Protocol: Document 12/18/24 09:43 KW (Rec: 12/18/24 11:34 KW Laptop) Balance Tests Romberg Romberg NEG Single Limb Standing Single Limb- Right less than 10 sec Single Limb- Left less than 10 sec Semi-Tandem Standing Semi-Tandem Standing eyes fixed, fair. head movements - poor. issued for HEP Balance PT-OP-E Functional Tests Start: 11/21/24 16:00 Freq: Status: Active Protocol: Document 12/18/24 09:43 KW (Rec: 12/18/24 11:34 KW Laptop) Functional Tests Tinetti Balance and Gait Assessment Balance Score 1 to <20% Impaired (Score 13-15) Impairment Rating Gait Score 1 to <20% Impaired (Score 10-11) Impairment Rating Composite Score 1 to <20% Impaired (Score 23-27) Impairment Rating PT-OP-F Manual Assessment Start: 11/21/24 16:00 Freq: Status: Active Protocol: Document 11/21/24 16:01 KW (Rec: 11/21/24 17:16 KW Laptop) Manual Assessments Joint Mobility Assessment Joint Mobility restricted 1st ray R, limited ext/flexion of 1st MTP Assessment joint. Stiffness of R subtalar joint PT-OP-G Mobility & Gait Start: 11/21/24 16:00 Freq: Status: Active Protocol: Document 12/18/24 09:43 KW (Rec: 12/18/24 11:34 KW Laptop) OP Gait Assessment Gait Gait Assistance Independent Required: Assistive Devices Assistive Device None Comments Gait Comments improved arm swing, heel to toe push off PT-OP-H Neuro Start: 11/21/24 16:00 Freq: Status: Active Protocol: Document 11/21/24 16:01 KW (Rec: 11/21/24 17:16 KW Laptop) Sensation Evaluation Gross Sensation Gross Sensation WNL PT-OP-J Posture/Palpation/Skin Start: 11/21/24 16:00 Freq: Status: Active Protocol: Document 11/21/24 16:01 KW (Rec: 11/21/24 17:16 KW Laptop) Posture Evaluation Comments Posture Comments standing posture: R shoulder low, internal rotation B UE, increased WB thru R > L, toe gripping. PT-OP-K Range of Motion Start: 11/21/24 16:00 Freq: Status: Active Protocol: Document 11/21/24 16:01 KW (Rec: 11/21/24 17:16 KW Laptop) Ankle and Foot Goniometric Range of Motion Ankle and Foot Right Active Ankle/Foot ROM WFL No Testing Position Supine Dorsiflexion with 5 Knee Flexed Dorsiflexion with 0 Knee Extended PT-OP-L Special Tests Start: 11/21/24 16:00 Freq: Status: Active Protocol: Document 11/21/24 16:01 KW (Rec: 11/21/24 17:16 KW Laptop) Special Tests Foot/Ankle Special Tests Peroneal Subluxation Test Results (+) R PT-OP-M Strength Start: 11/21/24 16:00 Freq: Status: Active Protocol: Document 12/18/24 09:43 KW (Rec: 12/18/24 11:34 KW Laptop) Ankle/Foot Strength Ankle and Foot Manual Muscle Testing Right Dorsiflexion (L4) 4+ Good+ Plantarflexion (S1) 4+ Good+ Inversion 4+ Good+ Eversion (S1) 4+ Good+ PT-OP-Q Treatments Start: 11/21/24 16:00 Freq: Status: Active Protocol: Document 12/18/24 09:43 KW (Rec: 12/18/24 11:34 KW Laptop) Cardio Equipment Recumbent Elliptical ([employer]) Duration (Minutes) 6 Resistance 2 Therapeutic Exercises Supine Exercises tennis ball to hip Supine Exercise Name bent knee fall out over tennis ball - HEP hip stretch Supine Exercise Name R hip piriformis and strap hamstring nerve glide, handout issued - HEP Reps/Minutes 30 to 60 sec Standing Exercises standing gastroc Standing Exercise standing gastroc soleus stretch Name Side bilateral Equipment Used STEFF Comments subtalar neutral Neuro Re-Education Treatment Balance Activities hurdles Details hurdles Comments step over AP, ML cues to slow down, try not to hold on BOSU Details BOSU Surface black side Comments wt shifting AP, ML, head turns, mini squats HEP Balance Details standing balance, narrow FLAQUITO, tandem stance Surface flat and foam pad Comments HO issued for HEP balance: narrow and tandem stance with head turns. IN Corner for safety Other Activities shoe heel lock Comments shoe lacing technique for stability of calcaneus in shoe - for [employer]ICS Self-Care/Home Management Treatment Education Patient Education Body Mechanics,Fall Risk,Home Exercise Program,Joint Protection,Pain Management,Posture Other Education ed on epsom salt soaks brushing bottom of feet with luffa sponge for stimulation use of ice consider blood work to r/o gout PT-OP-T Assessment and Plan Start: 11/21/24 16:00 Freq: Status: Active Protocol: Document 12/18/24 09:43 KW (Rec: 12/18/24 11:34 KW Laptop) Physical Therapy Assessment Rehab Potential Rehabilitation Excellent Potential Evaluation Complexity Number of Personal 1-2 Factors/ Comorbidities Number of Body 1-2 Systems Impaired Clinical Stable Presentation at Evaluation Impairments Impairments Activity Tolerance,Balance,Functional Activities, Functional Mobility,Gait,Pain,Posture,ROM,Soft Tissue Mobility,Strength Goals Two Impairment LEFS score 72% Short Term Goal (STG improve LEFS score to 90- 75%at current ) STG Duration 6 weeks One Impairment lack of HEP Short Term Goal (STG patient is indep with HEP 6 weeks time - MET ) STG Duration 6 Assessment Summary Assessment excellent results of improved pain, ROM, strength, gait , balance. R hip restriction had a significant contributing factor affecting mechanics and neuro response of R foot. this is improving as well. Will benefit from daily balance training at home - HEP issued. excellent compliance Physical Therapy Plan Frequency and Duration Frequency of 2x/Week Treatment Duration of 6 treatment (weeks) Plan of Care Start 11/21/24 Date Plan of Care End 02/21/25 Date Therapeutic Interventions Therapeutic Balance Training,Gait Training,Home Exercise Program Interventions Next Visit Focus/Plan Next Note Type Discharge Summary Next Visit Plan stationary bike balance training ankle flexibility toes/towel/marble activity
--- NOTE | 2024-12-25 11:10 | PT.OTN ---
Current Diagnoses Primary osteoarthritis, unspecified ankle and foot (12/25/24) Pain in right foot (12/25/24) Physical Therapy Treatment Note PT-OP-A Visit Information Start: 11/21/24 16:00 Freq: Status: Active Protocol: Document 12/25/24 10:46 KW (Rec: 12/25/24 11:10 KW Laptop) Out-Patient Physical Therapy Visit Information Visit Information Visit Type Discharge Summary Visit Start Time 10:45 Visit Stop Time 11:25 Visit Number 4, ends 01/03/2025, [facility] Evaluation Information Evaluation Date 11/21/24 Precautions Precautions prior inflammatory breast CA, into lymphatic tissue PT-OP-B Current Condition Start: 11/21/24 16:00 Freq: Status: Active Protocol: Document 12/25/24 10:46 KW (Rec: 12/25/24 11:10 KW Laptop) Current Condition History of Current Condition Onset Date 10 + years with recent flare up Current Complaints R big toe pain, 3rd toe pain on R History of Current patient returned from Boat trip in , noted increased Condition R 1st and 3rd toe pain, redness, swelling. Had been doing some YOGA on a yoga mat, wearing flip flops. Otherwise feels good thru knees, hips, spine. Works out with [employer]. had work up with x-rays, has been seeing a baggage handler. Is considering orthotics . She has a fishing trip to [place] planned this summer. Prior Functional Status Baseline Function- Independent ADL's Baseline Function- Independent Mobility PT-OP-C Subjective Start: 11/21/24 16:00 Freq: Status: Active Protocol: Document 12/25/24 10:46 KW (Rec: 12/25/24 11:10 KW Laptop) OP-PT Subjective Patient Comments Patient Comments has toe sleeve that is helping. hip feels so much better with trigger point tennis ball trick went hiking over w/e with trekking poles. 2 HRS Patient Reported Improving Progress Patient Questionnaires Lower Extremity Functional Scale LEFS Score 70 LEFS Impairment 1 to 19% Impaired (Score 63-79) OP-PT Pain Assessment Pain Assessment Grid Paper Pain Yes Assessment Grid Completed Location R foot Intensity 0 Scale Used Numeric (0 - 10) Description Aching,Acute,Burning,Chronic,Cramping,Dull,Pinching, Pulling,Sharp Frequency Intermittent Pain Aggravating ADL's,Activity,Exercise,Standing,Walking Factors Other Pain during sleep Aggravating Factors Pain Alleviating Cold,Heat,Medication,Massage,Splinting Factors PT-OP-D Balance Start: 11/21/24 16:00 Freq: Status: Active Protocol: Document 12/25/24 10:46 KW (Rec: 12/25/24 11:10 KW Laptop) OP-PT Balance Assessment Standing Balance Static Standing Good Balance Ability Dynamic Standing Good Balance Ability Device Used none Standing Balance noted toe gripping. able to relax toes, increase in Comments ankle strategy - improved Balance Tests Romberg Romberg NEG Single Limb Standing Single Limb- Right less than 10 sec Single Limb- Left less than 10 sec Semi-Tandem Standing Semi-Tandem Standing eyes fixed, fair. head movements - poor. issued for HEP Balance Kim Fall Scale Copyright Permission PT-OP-E Functional Tests Start: 11/21/24 16:00 Freq: Status: Active Protocol: Document 12/25/24 10:46 KW (Rec: 12/25/24 11:10 KW Laptop) Functional Tests Tinetti Balance and Gait Assessment Balance Score 1 to <20% Impaired (Score 13-15) Impairment Rating Gait Score 1 to <20% Impaired (Score 10-11) Impairment Rating Composite Score 1 to <20% Impaired (Score 23-27) Impairment Rating PT-OP-F Manual Assessment Start: 11/21/24 16:00 Freq: Status: Active Protocol: Document 12/25/24 10:46 KW (Rec: 12/25/24 11:10 KW Laptop) Manual Assessments Joint Mobility Assessment Joint Mobility restricted 1st ray R, limited ext/flexion of 1st MTP Assessment joint. Stiffness of R subtalar joint - improved PT-OP-G Mobility & Gait Start: 11/21/24 16:00 Freq: Status: Active Protocol: Document 12/25/24 10:46 KW (Rec: 12/25/24 11:10 KW Laptop) OP Gait Assessment Gait Gait Assistance Independent Required: Assistive Devices Assistive Device None Comments Gait Comments improved arm swing, heel to toe push off PT-OP-H Neuro Start: 11/21/24 16:00 Freq: Status: Active Protocol: Document 12/25/24 10:46 KW (Rec: 12/25/24 11:10 KW Laptop) Sensation Evaluation Gross Sensation Gross Sensation WNL PT-OP-J Posture/Palpation/Skin Start: 11/21/24 16:00 Freq: Status: Active Protocol: Document 12/25/24 10:46 KW (Rec: 12/25/24 11:10 KW Laptop) Posture Evaluation Comments Posture Comments standing posture: R shoulder low, internal rotation B UE, increased WB thru R > L, toe gripping. - improved PT-OP-K Range of Motion Start: 11/21/24 16:00 Freq: Status: Active Protocol: Document 12/25/24 10:46 KW (Rec: 12/25/24 11:10 KW Laptop) Ankle and Foot Goniometric Range of Motion Ankle and Foot Right Active Ankle/Foot ROM WFL No Testing Position Supine Dorsiflexion with 10 Knee Flexed Dorsiflexion with 5 Knee Extended PT-OP-L Special Tests Start: 11/21/24 16:00 Freq: Status: Active Protocol: Document 12/25/24 10:46 KW (Rec: 12/25/24 11:10 KW Laptop) Special Tests Foot/Ankle Special Tests Peroneal Subluxation Test Results (-) R PT-OP-M Strength Start: 11/21/24 16:00 Freq: Status: Active Protocol: Document 12/25/24 10:46 KW (Rec: 12/25/24 11:10 KW Laptop) Ankle/Foot Strength Ankle and Foot Manual Muscle Testing Right Dorsiflexion (L4) 4+ Good+ Plantarflexion (S1) 4+ Good+ Inversion 4+ Good+ Eversion (S1) 4+ Good+ Toe Strength Toe Manual Muscle Testing Right Great Toe Flexion 4 Good Extension 4 Good Comments however, limited ROM - no pain PT-OP-Q Treatments Start: 11/21/24 16:00 Freq: Status: Active Protocol: Document 12/25/24 10:46 KW (Rec: 12/25/24 11:10 KW Laptop) Cardio Equipment Recumbent Elliptical ([employer]) Duration (Minutes) 6 Resistance 2 Therapeutic Exercises Supine Exercises tennis ball to hip Supine Exercise Name bent knee fall out over tennis ball - HEP hip stretch Supine Exercise Name R hip piriformis and strap hamstring nerve glide, handout issued - HEP Reps/Minutes 30 to 60 sec Standing Exercises standing gastroc Standing Exercise standing gastroc soleus stretch Name Side bilateral Equipment Used STEFF Comments subtalar neutral Gait Training Gait Activity stairs Comments cues for alignment, press thru lead heel taping to heel for subtalar neutral alignment - improved arm swing Comments gait training: cues for heel to toe push off, arm swing , head and eyes up Neuro Re-Education Treatment Balance Activities hurdles Details hurdles Comments step over AP, ML cues to slow down, try not to hold on BOSU Details BOSU Surface black side Comments wt shifting AP, ML, head turns, mini squats HEP Balance Details standing balance, narrow FLAQUITO, tandem stance Surface flat and foam pad Comments HO issued for HEP balance: narrow and tandem stance with head turns. IN Corner for safety Self-Care/Home Management Treatment Education Patient Education Body Mechanics,Fall Risk,Home Exercise Program,Joint Protection,Pain Management,Posture Other Education ed on epsom salt soaks brushing bottom of feet with luffa sponge for stimulation use of ice consider blood work to r/o gout PT-OP-T Assessment and Plan Start: 11/21/24 16:00 Freq: Status: Active Protocol: Document 12/25/24 10:46 KW (Rec: 12/25/24 11:10 KW Laptop) Physical Therapy Assessment Rehab Potential Rehabilitation Excellent Potential Evaluation Complexity Number of Personal 1-2 Factors/ Comorbidities Number of Body 1-2 Systems Impaired Clinical Stable Presentation at Evaluation Impairments Impairments Activity Tolerance,Balance,Functional Activities, Functional Mobility,Gait,Pain,Posture,ROM,Soft Tissue Mobility,Strength Goals Two Short Term Goal (STG improve LEFS score to 90- 75%at current MET 85% ) STG Duration 6 weeks One Impairment lack of HEP - MET Short Term Goal (STG patient is indep with HEP 6 weeks time - MET ) STG Duration 6 Assessment Summary Assessment excellent resolution of Foot symptoms goals met appropriate for DC PT to HEP
== END 2024-12-27 12:43 | disposition home or self-care (01) ==
LOC: PHYS 10:45
PROVIDERS: Family Provider Internal Medicine; PCP Internal Medicine; Referring Provider Internal Medicine; Visit Provider Internal Medicine
DX: M79.671 Pain in right foot (principal); M19.079 Primary osteoarthritis, unspecified ankle and foot
CPT/HCPCS: 97110; 97112; 97116; 97140; 97163